=== PATIENT | female | born 1940 | race Caucasian/White ===

== ENCOUNTER → 2016-05-21 | Outpatient (CLI) | payer MEDICARE, BC ==
[2016-05-21 13:46] LABS: INR 1.5 (<1.1)
[2016-05-21 13:48] LABS: Basophils # (A) 0.1 k/uL (0-0.2); Basophils % (A) 1 %; CH 29.9; CHCM 31.9; Eosinophils # (A) 0.1 k/uL (0-0.7); Eosinophils % (A) 2 %; HCT 38.9 % (34.0-46.0); HDW 2.46; HGB 12.1 gm/dL (11.4-16.0); Luc # (Auto) 0.16; Luc % (Auto) 3; Lymphocytes % (A) 19 %; MCH 29.3 pg (25.0-35.0); MCHC 31.1 g/dL (31.0-37.0); MCV 94.1 fL (80.0-100.0); Mean Platelet Volume 8.7; Monocytes # (A) 0.5 k/uL (0-1.0); Monocytes % (A) 9 %; Neutrophils # (A) 3.6 k/uL (1.3-7.7); Neutrophils % (A) 66 %; RBC 4.13 m/uL (3.80-5.40); RDW 13.5 % (11.5-15.5); WBC 5.4 k/uL (3.8-10.6); WBC (Perox) 5.76
== END | disposition home or self-care (01) ==
LOC: LABWHC1 13:05
PROVIDERS: ATTEND Internal Medicine
DX: D68.59 Other primary thrombophilia (principal)
CPT/HCPCS: 36415; 85025; 85610

== ENCOUNTER → 2016-05-26 | Outpatient (CLI) | payer MEDICARE, BC ==
--- NOTE | 2016-05-27 11:31 | ECHOF ---
Referral Reason:M34.9 systemic sclerosis MEASUREMENTS -------- HEIGHT: 162.6 cm WEIGHT: 59.9 kg BP: 156/68 RVIDd: 2.8 cm (< 3.3) IVSd: 1.1 cm (0.6 - 1.1) LVIDd: 2.8 cm (3.9 - 5.3) LVPWd: 1.0 cm (0.6 - 1.1) IVSs: 1.4 cm LVIDs: 2.0 cm LVPWs: 1.6 cm LA Diam: 2.5 cm (2.7 - 3.8) LAESV Index (A-L): 25.29 ml/m Ao Diam: 3.0 cm (2.0 - 3.7) AV Cusp: 2.3 cm (1.5 - 2.6) MV EXCURSION: 13.275 mm (> 18.000) MV EF SLOPE: 37 mm/s (70 - 150) MV E Mor: 0.77 m/s MV DecT: 307 ms MV A Mor: 1.14 m/s MV E/A Ratio: 0.68 RAP: 5.00 mmHg RVSP: 34.03 mmHg FINDINGS -------- Sinus rhythm. This was a technically good study. The left ventricular size is normal. There is borderline concentric left ventricular hypertrophy. Overall left ventricular systolic function is normal with, an EF between 60 - 65 %. The right ventricle is normal in size. Normal LA size by volume 22+/-6 ml/m2. The right atrium is normal in size. Aortic valve is trileaflet and is mildly thickened. The mitral valve leaflets are mildly thickened. Mild mitral annular calcification present. There is trace to mild mitral regurgitation. Mild tricuspid regurgitation present. Right ventricular systolic pressure is normal at < 35 mmHg. Trace/mild (physiologic) pulmonic regurgitation. The aortic root size is normal. There is no pericardial effusion. CONCLUSIONS -------- 1. Sinus rhythm. 2. The mitral valve leaflets are mildly thickened. 3. Mild mitral annular calcification present. 4. There is trace to mild mitral regurgitation. 5. Mild tricuspid regurgitation present. 6. Right ventricular systolic pressure is normal at < 35 mmHg. 7. Trace/mild (physiologic) pulmonic regurgitation. 8. The aortic root size is normal. 9. There is no pericardial effusion. 10. This was a technically good study. 11. The left ventricular size is normal. 12. There is borderline concentric left ventricular hypertrophy. 13. Overall left ventricular systolic function is normal with, an EF between 60 - 65 %. 14. The right ventricle is normal in size. 15. Normal LA size by volume 22+/-6 ml/m2. 16. The right atrium is normal in size. 17. Aortic valve is trileaflet and is mildly thickened. HI RANGER OPERATOR: Nohelia Arenas RDCS
== END | disposition home or self-care (01) ==
LOC: CPPFTMAIN 13:04
PROVIDERS: ATTEND Internal Medicine Rheumatology
DX: M34.9 Systemic sclerosis, unspecified (principal); I34.8 Other nonrheumatic mitral valve disorders; I34.0 Nonrheumatic mitral (valve) insufficiency; I36.1 Nonrheumatic tricuspid (valve) insufficiency; I37.1 Nonrheumatic pulmonary valve insufficiency
CPT/HCPCS: 93306; 94060; 94726; 94729

== ENCOUNTER → 2017-03-17 | Outpatient (CLI) | payer MEDICARE, BC ==
--- NOTE | 2017-03-18 07:07 | MM ---
Reason for exam: screening (asymptomatic). Last mammogram was performed 1 year and 1 month ago. History: Patient is postmenopausal. Benign left mammotome panel of the left breast, January 04, 2012. Took estrogen for 3 years. Physical Findings: A clinical breast exam by your physician is recommended on an annual basis and results should be correlated with mammographic findings. MG 3D Screening Mammo W/Cad Bilateral CC and MLO view(s) were taken. XCCL view(s) were taken of the right breast. Prior study comparison: February 24, 2016, bilateral MG screening mammo w CAD. February 21, 2015, bilateral MG screening mammo w CAD. The breast tissue is heterogeneously dense. This may lower the sensitivity of mammography. Finding: There are typically benign vascular, dystrophic calcifications in both breasts. Previous mammotome biopsy in the left breast. There is no discrete abnormality. ASSESSMENT: Benign, BI-RAD 2 RECOMMENDATION: Routine screening mammogram of both breasts in 1 year.
== END | disposition home or self-care (01) ==
LOC: RADMAMWWP 09:04
PROVIDERS: ATTEND Internal Medicine
DX: Z12.31 Encounter for screening mammogram for malignant neoplasm of breast (principal)
CPT/HCPCS: 77063; G0202

== ENCOUNTER → 2017-06-29 | Outpatient (CLI) | payer MEDICARE, BC | END | disposition home or self-care (01) | LOC: CPPFTMAIN 11:21 | PROVIDERS: ATTEND Internal Medicine Rheumatology | DX: Z53.9 Procedure and treatment not carried out, unspecified reason (principal) ==

== ENCOUNTER → 2018-05-03 | Outpatient (CLI) | payer MEDICARE, BC ==
--- NOTE | 2018-05-07 11:05 | MM ---
Reason for exam: screening (asymptomatic). Last mammogram was performed 1 year and 2 months ago. History: Patient is postmenopausal. Benign left mammotome panel of the left breast, January 04, 2012. Took estrogen for 3 years. MG 3D Screening Mammo W/Cad Bilateral CC and MLO view(s) were taken. Prior study comparison: March 17, 2017, bilateral MG 3d screening mammo w/cad. February 24, 2016, bilateral MG screening mammo w CAD. The breast tissue is heterogeneously dense. This may lower the sensitivity of mammography. Previous left breast mammotome biopsy. No significant changes when compared with prior studies. ASSESSMENT: Benign, BI-RAD 2 RECOMMENDATION: Routine screening mammogram of both breasts in 1 year.
== END ==
LOC: RADMAMWWP 12:55
PROVIDERS: ATTEND Internal Medicine
DX: Z12.31 Encounter for screening mammogram for malignant neoplasm of breast (principal)
CPT/HCPCS: 77063; 77067

== ENCOUNTER → 2018-06-17 | Outpatient (CLI) | payer MEDICARE, BC ==
--- NOTE | 2018-07-01 18:26 | ECHOF ---
Referral Reason:Systemic sclerosis M34.9 MEASUREMENTS -------- HEIGHT: 162.6 cm WEIGHT: 61.2 kg BP: IVSd: 1.0 cm (0.6 - 1.1) LVIDd: 3.2 cm (3.9 - 5.3) LVPWd: 1.3 cm (0.6 - 1.1) IVSs: 1.7 cm LVIDs: 2.0 cm LVPWs: 1.5 cm LAESV Index (A-L): 27.52 ml/m Ao Diam: 2.9 cm (2.0 - 3.7) AV Cusp: 1.9 cm (1.5 - 2.6) LA Diam: 3.0 cm (2.7 - 3.8) MV EXCURSION: 11.540 mm (> 18.000) MV EF SLOPE: 64 mm/s (70 - 150) EPSS: 0.5 cm MV E Mor: 0.97 m/s MV DecT: 267 ms MV A Mor: 1.05 m/s MV E/A Ratio: 0.93 RAP: 5.00 mmHg RVSP: 37.68 mmHg FINDINGS -------- Sinus rhythm. This was a technically good study. The left ventricular size is normal. There is borderline concentric left ventricular hypertrophy. Overall left ventricular systolic function is normal with, an EF between 55 - 60 %. The right ventricle is normal in size. Normal LA size by volume 22+/-6 ml/m2. The right atrial size is normal. There is mild aortic valve sclerosis. The mitral valve leaflets are mildly thickened. Mild mitral annular calcification present. Modera te mitral regurgitation is present. Dgtv-[id number] tricuspid regurgitation present. There is mild pulmonary hypertension. The right ventricular systolic pressure, as measured by Doppler, is 37.68mmHg. There is no pulmonic regurgitation present. The aortic root size is normal. Normal inferior vena cava with normal inspiratory collapse consistent with estimated right atrial pre ssure of 5 mmHg. There is no pericardial effusion. CONCLUSIONS -------- 1. Sinus rhythm. 2. This was a technically good study. 3. The left ventricular size is normal. 4. There is borderline concentric left ventricular hypertrophy. 5. Overall left ventricular systolic function is normal with, an EF between 55 - 60 %. 6. Normal LA size by volume 22+/-6 ml/m2. 7. There is mild aortic valve sclerosis. 8. The mitral valve leaflets are mildly thickened. 9. Mild mitral annular calcification present. 10. Moderate mitral regurgitation is present. 11. Aznz-ba-wiktposu tricuspid regurgitation present. 12. There is mild pulmonary hypertension. 13. There is no pulmonic regurgitation present. 14. The aortic root size is normal. 15. Normal inferior vena cava with normal inspiratory collapse consistent with estimated right atrial pressure of 5 mmHg. 16. There is no pericardial effusion. CREDIT ADVISOR: Maya Mendez RDCS
== END | disposition home or self-care (01) ==
LOC: RADECHMAIN 14:34
PROVIDERS: ATTEND Internal Medicine Rheumatology
DX: I08.3 Combined rheumatic disorders of mitral, aortic and tricuspid valves (principal); I27.20 Pulmonary hypertension, unspecified
CPT/HCPCS: 93306

== ENCOUNTER → 2018-07-12 | Outpatient (CLI) | payer MEDICARE, BC | LOC: CPPFTMAIN 12:02 | PROVIDERS: ATTEND Internal Medicine Rheumatology | DX: I99.8 Other disorder of circulatory system (principal); M34.9 Systemic sclerosis, unspecified | CPT/HCPCS: 94060; 94726; 94729 ==

== ENCOUNTER → 2019-06-20 | Outpatient (CLI) | payer MEDICARE, BC ==
--- NOTE | 2019-06-21 11:22 | MM ---
Reason for exam: screening (asymptomatic). Last mammogram was performed 1 year and 2 months ago. History: Patient is postmenopausal. Benign left mammotome panel of the left breast, January 04, 2012. Took estrogen for 3 years. Physical Findings: A clinical breast exam by your physician is recommended on an annual basis and results should be correlated with mammographic findings. MG 3D Screening Mammo W/Cad Bilateral CC and MLO view(s) were taken. Prior study comparison: May 03, 2018, bilateral MG 3d screening mammo w/cad. March 17, 2017, bilateral MG 3d screening mammo w/cad. The breast tissue is heterogeneously dense. This may lower the sensitivity of mammography. There are benign appearing vascular dystrophic calcifications bilaterally. Previous mammotome biopsy in the left breast at focal asymmetry, stable. There is chronic nodularity in the left breast medially. There is no discrete abnormality. ASSESSMENT: Benign, BI-RAD 2 RECOMMENDATION: Routine screening mammogram of both breasts in 1 year.
== END | disposition home or self-care (01) ==
LOC: RADMAMWWP 14:35
PROVIDERS: ATTEND Internal Medicine
DX: Z12.31 Encounter for screening mammogram for malignant neoplasm of breast (principal)
CPT/HCPCS: 77063; 77067

== ENCOUNTER → 2019-11-21 | Outpatient (CLI) | payer MEDICARE, BC ==
--- NOTE | 2019-11-21 15:00 | ECHOF ---
Referral Reason:M34.9 systemic sclerosis MEASUREMENTS -------- HEIGHT: 162.6 cm WEIGHT: 59.9 kg BP: RVIDd: 3.3 cm (< 3.3) IVSd: 1.5 cm (0.6 - 1.1) LVIDd: 3.4 cm (3.9 - 5.3) LVPWd: 1.7 cm (0.6 - 1.1) IVSs: 1.9 cm LVIDs: 1.8 cm LVPWs: 1.9 cm LAESV Index (A-L): 24.67 ml/m Ao Diam: 3.3 cm (2.0 - 3.7) AV Cusp: 1.8 cm (1.5 - 2.6) MV EXCURSION: 12.148 mm (> 18.000) MV EF SLOPE: 70 mm/s (70 - 150) EPSS: 0.2 cm MV E Mor: 1.10 m/s MV DecT: 234 ms MV A Mor: 1.42 m/s MV E/A Ratio: 0.77 RAP: 5.00 mmHg RVSP: 46.30 mmHg FINDINGS -------- Sinus rhythm. This was a technically adequate study. The left ventricular size is normal. There is moderate concentric left ventricular hypertrophy. O verall left ventricular systolic function is normal with, an EF between 55 - 60 %. The diastolic fi lling pattern is normal for the age of the patient 17.97. The right ventricle is mildly enlarged. Normal LA size by volume 22+/-6 ml/m2. The right atrial size is normal. Interatrial and interventricular septum intact. The aortic valve is trileaflet and appears structurally normal. There is no evidence of aortic regu rgitation. There is no evidence of aortic stenosis. Dcpy-ux-puruifcy mitral regurgitation is present. Rcyf-qa-etjlfrpq tricuspid regurgitation present. There is mild to moderate pulmonary hypertension. The right ventricular systolic pressure, as measured by Doppler, is 46.30mmHg. There is no pulmonic regurgitation present. The aortic root size is normal. IVC Not well visulized. There is no pericardial effusion. CONCLUSIONS -------- 1. The left ventricular size is normal. 2. There is moderate concentric left ventricular hypertrophy. 3. Overall left ventricular systolic function is normal with, an EF between 55 - 60 %. 4. The diastolic filling pattern is normal for the age of the patient 17.97 5. The right ventricle is mildly enlarged. 6. Mhdd-kl-hhvhwgta mitral regurgitation is present. 7. Qxnm-qc-qmpykwbz tricuspid regurgitation present. 8. There is mild to moderate pulmonary hypertension. 9. The right ventricular systolic pressure, as measured by Doppler, is 46.30mmHg. HAND BANDER: Brenda Benjamin RDCS
== END | disposition home or self-care (01) ==
LOC: RADECHMAIN 11:58
PROVIDERS: ATTEND Internal Medicine Rheumatology
DX: I08.1 Rheumatic disorders of both mitral and tricuspid valves (principal); I27.20 Pulmonary hypertension, unspecified
CPT/HCPCS: 93306; 94060; 94726; 94729

== ENCOUNTER 2020-01-22 13:01 | Inpatient (IN) | payer MEDICARE, BC ==
[2020-01-22] MEDS ORDERED: PANTOPRAZOLE 40 MG/10 ML VIAL IVP STA (13:39)
--- NOTE | 2020-01-22 13:50 | ED ---
General Adult HPI - General Chief complaint: Dizziness Stated complaint: Dehydration Time Seen by Provider: 01/22/20 13:27 Source: patient, RN notes reviewed, old records reviewed Mode of arrival: wheelchair Limitations: physical limitation - History of Present Illness Initial comments: 79-year-old female history of factor V Leiden currently on Coumadin presents for evaluation of exertional dyspnea, lightheadedness, and dark stool. She has had dark bowel movements for the past 2 days. She's had increasing fatigue as well as dyspnea. She denies significant cough. She denies chest pain. She has some left shoulder pain in an area where she recently had a shingles outbreak and was treated with Valtrex. She denies fever. Denies URI symptoms. Denies abdominal pain nausea or vomiting. - Related Data Home Medications Medication Instructions Recorded Confirmed Levothyroxine Sodium [Synthroid] 112 mcg PO AC-[id number] 10/05/13 01/22/20 Warfarin Sodium 5 mg PO HS 10/05/13 01/22/20 Amitriptyline HCl [Elavil] 25 mg PO HS 11/22/14 01/22/20 Cholecalciferol [Vitamin D3 (25 1,000 unit PO DAILY 11/22/14 01/22/20 Mcg = 1000 Iu)] diphenhydrAMINE [Benadryl] 25 mg PO DAILY PRN 02/08/15 01/22/20 Biotin 10,000 mcg PO DAILY 01/22/20 01/22/20 Ferrous Sulfate [Iron] 325 mg PO DAILY 01/22/20 01/22/20 Hydroxychloroquine Sulfate 200 mg PO BID 01/22/20 01/22/20 [Plaquenil] Magnesium 250 mg PO DAILY 01/22/20 01/22/20 Meloxicam [Mobic] 7.5 mg PO DAILY 01/22/20 01/22/20 NIFEdipine [NIFEdipine ER 60 mg PO DAILY 01/22/20 01/22/20 (Osmotic)] Allergies Allergy/AdvReac Type Severity Reaction Status Date / Time azithromycin [From Zithromax] Allergy Rash/Hives Verified 01/22/20 14:41 morphine AdvReac Nausea & Verified 01/22/20 14:41 Vomiting Review of Systems ROS Statement: Those systems with pertinent positive or pertinent negative responses have been documented in the HPI. ROS Other: All systems not noted in ROS Statement are negative. Past Medical History Past Medical History: Blood Disorder, Deep Vein Thrombosis (DVT), Eye Disorder, GERD/Reflux, GI Bleed, Hearing Disorder / Deafness, Osteoarthritis (OA), Skin Disorder, Thyroid Disorder Additional Past Medical History / Comment(s): Factor V Leiden, hx. headaches, hx. Hiatal Hernia, gastric ulcer, belching. worsening GERD., BILAT CATARACTS, Lupus History of Any Multi-Drug Resistant Organisms: None Reported Past Surgical History: Appendectomy, Cholecystectomy, Ear Surgery, Hysterectomy, Joint Replacement, Tonsillectomy Additional Past Surgical History / Comment(s): carpal tunnel surgery rotator cuff surgery, left knee replacement, bilat cataract surgery, Ari Fundoplasty, EGD, REVISION OF ARI FUNDOPLASTY Past Anesthesia/Blood Transfusion Reactions: No Reported Reaction Additional Past Anesthesia/Blood Transfusion Reaction / Comment(s): no complications with prior blood transfusions Past Psychological History: No Psychological Hx Reported Smoking Status: Never smoker Past Alcohol Use History: None Reported Past Drug Use History: None Reported - Past Family History Father Family Medical History: CVA/TIA Additional Family Medical History / Comment(s): alcoholism Sister(s) Family Medical History: Diabetes Mellitus Additional Family Medical History / Comment(s): schleroderma Brother(s) Family Medical History: Diabetes Mellitus Mother Family Medical History: No Reported History Additional Family Medical History / Comment(s): heart problems General Exam Limitations: physical limitation General appearance: alert, in no apparent distress Head exam: Present: atraumatic, normocephalic Eye exam: Present: normal appearance, PERRL ENT exam: Present: normal exam Neck exam: Present: normal inspection. Absent: tenderness, meningismus Respiratory exam: Present: normal lung sounds bilaterally. Absent: respiratory distress, wheezes Cardiovascular Exam: Present: regular rate, normal rhythm GI/Abdominal exam: Present: soft. Absent: distended, tenderness, guarding Rectal exam: Present: normal inspection, normal rectal tone, black stool. Absent: hemorrhoids Extremities exam: Present: normal inspection, normal capillary refill. Absent: pedal edema Neurological exam: Present: alert, oriented X3, CN II-XII intact. Absent: motor sensory deficit Psychiatric exam: Present: normal affect, normal mood Skin exam: Present: warm, dry, intact, pallor Course Vital Signs 01/22/20 01/22/20 13:19 14:25 Temperature 98.1 F Pulse Rate 55 L 58 L Respiratory 16 16 Rate Blood Pressure 112/64 131/66 O2 Sat by Pulse 99 98 Oximetry EKG Findings - EKG Comments: EKG Findings:: EKG: Normal sinus rhythm, rate of 90, CA interval 144, QRS duration 84, QTC 379, no ST segment elevation. Medical Decision Making - Medical Decision Making 79-year-old female presenting with lightheadedness, dark stool. Patient has melanotic stool which is heme positive. Hemoglobin is 7.3, with recent for comparison of 12.5, suggestive of a 5 g loss. Patient's vitals are stable. She has an INR of 6.8 currently on Coumadin. I discussed case with gastroenterolo hunter, Dr. Bueno regarding reversal, patient given 10 mg IV piggyback of vitamin K. No fresh frozen plasma at this time. Repeat hemoglobin and INR will be checked in 5 hours. These have been ordered. I discussed case with Dr. Huerta covering for sound physician's, will admit. - Lab Data Result diagrams: 01/22/20 14:03 01/22/20 14:03 Lab Results 01/22/20 01/22/20 01/22/20 Range/Units 14:03 14:03 14:03 WBC 11.6 H (3.8-10.6) k/uL RBC 2.51 L (3.80-5.40) m/uL Hgb 7.3 L (11.4-16.0) gm/dL Hct 22.3 L (34.0-46.0) % MCV 88.9 (80.0-100.0) fL MCH 29.2 (25.0-35.0) pg MCHC 32.9 (31.0-37.0) g/dL RDW 17.0 H (11.5-15.5) % Plt Count 235 (150-450) k/uL Neutrophils % 88 % Lymphocytes % 6 % Monocytes % 4 % Eosinophils % 0 % Basophils % 0 % Neutrophils # 10.2 H (1.3-7.7) k/uL Lymphocytes # 0.7 L (1.0-4.8) k/uL Monocytes # 0.4 (0-1.0) k/uL Eosinophils # 0.0 (0-0.7) k/uL Basophils # 0.0 (0-0.2) k/uL Anisocytosis Slight PT 69.4 H (9.0-12.0) sec INR 6.8 H* (<1.2) APTT 41.5 H (22.0-30.0) sec Sodium 132 L (137-145) mmol/L Potassium 4.5 (3.5-5.1) mmol/L Chloride 100 (98-107) mmol/L Carbon Dioxide 25 (22-30) mmol/L Anion Gap 7 mmol/L BUN 32 H (7-17) mg/dL Creatinine 0.60 (0.52-1.04) mg/dL Est GFR (CKD-EPI)AfAm >90 (>60 ml/min/1.73 sqM) Est GFR (CKD-EPI)NonAf 87 (>60 ml/min/1.73 sqM) Glucose 86 (74-99) mg/dL Plasma Lactic Acid Cronel (0.7-2.0) mmol/L Calcium 7.7 L (8.4-10.2) mg/dL Magnesium 2.3 (1.6-2.3) mg/dL Total Bilirubin 0.2 (0.2-1.3) mg/dL AST 39 H (14-36) U/L ALT 30 (4-34) U/L Alkaline Phosphatase 62 (38-126) U/L Total Protein 5.5 L (6.3-8.2) g/dL Albumin 3.4 L (3.5-5.0) g/dL Stool Occult Blood (Negative) 01/22/20 01/22/20 Range/Units 14:03 14:03 WBC (3.8-10.6) k/uL RBC (3.80-5.40) m/uL Hgb (11.4-16.0) gm/dL Hct (34.0-46.0) % MCV (80.0-100.0) fL MCH (25.0-35.0) pg MCHC (31.0-37.0) g/dL RDW (11.5-15.5) % Plt Count (150-450) k/uL Neutrophils % % Lymphocytes % % Monocytes % % Eosinophils % % Basophils % % Neutrophils # (1.3-7.7) k/uL Lymphocytes # (1.0-4.8) k/uL Monocytes # (0-1.0) k/uL Eosinophils # (0-0.7) k/uL Basophils # (0-0.2) k/uL Anisocytosis PT (9.0-12.0) sec INR (<1.2) APTT (22.0-30.0) sec Sodium (137-145) mmol/L Potassium (3.5-5.1) mmol/L Chloride (98-107) mmol/L Carbon Dioxide (22-30) mmol/L Anion Gap mmol/L BUN (7-17) mg/dL Creatinine (0.52-1.04) mg/dL Est GFR (CKD-EPI)AfAm (>60 ml/min/1.73 sqM) Est GFR (CKD-EPI)NonAf (>60 ml/min/1.73 sqM) Glucose (74-99) mg/dL Plasma Lactic Acid Cornel 2.1 H* (0.7-2.0) mmol/L Calcium (8.4-10.2) mg/dL Magnesium (1.6-2.3) mg/dL Total Bilirubin (0.2-1.3) mg/dL AST (14-36) U/L ALT (4-34) U/L Alkaline Phosphatase (38-126) U/L Total Protein (6.3-8.2) g/dL Albumin (3.5-5.0) g/dL Stool Occult Blood Positive H (Negative) Critical Care Time Critical Care Time: Yes Total Critical Care Time: 35 Disposition Clinical Impression: Symptomatic anemia, GI bleed, Supratherapeutic INR Disposition: ADMITTED IP TO THIS [facility] Condition: Stable Is patient prescribed a controlled substance at d/c from ED?: No Referrals: Dayanna Pierce NPC [Primary Care Provider] - 1-2 days Decision to Admit Reason: Admit from EC Decision Date: 01/22/20 Decision Time: 15:37
[2020-01-22 14:44] LABS: Anisocytosis Slight; Basophils % (A) 0 %; Eosinophils % (A) 0 %; HCT 22.3 % (34.0-46.0); HGB 7.3 gm/dL (11.4-16.0); Lymphocytes # (A) 0.7 k/uL (1.0-4.8); Lymphocytes % (A) 6 %; MCH 29.2 pg (25.0-35.0); MCHC 32.9 g/dL (31.0-37.0); MCV 88.9 fL (80.0-100.0); Mean Platelet Volume 7.5; Monocytes # (A) 0.4 k/uL (0-1.0); Monocytes % (A) 4 %; Neutrophils # (A) 10.2 k/uL (1.3-7.7); Neutrophils % (A) 88 %; Platelet Count 235 k/uL (150-450); RBC 2.51 m/uL (3.80-5.40); WBC 11.6 k/uL (3.8-10.6)
[2020-01-22 14:52] LABS: Partial Thromboplastin Time 41.5 sec (22.0-30.0)
[2020-01-22 15:00] LABS: Prothrombin Time 69.4 sec (9.0-12.0)
[2020-01-22 15:05] LABS: INR 6.8 (<1.2)
[2020-01-22] MEDS ORDERED: PHYTONADIONE 10 MG in SODIUM CHLORIDE 0.9% 50 ML IVPB STA (15:12)
[2020-01-22 15:30] LABS: ALT 30 U/L (4-34); AST 39 U/L (14-36); African American GFR (CKD) >90 (>60 ml/min/1.73 sqM); Albumin 3.4 g/dL (3.5-5.0); Alkaline Phosphatase 62 U/L (38-126); Anion Gap 7 mmol/L; Blood Urea Nitrogen 32 mg/dL (7-17); Calcium 7.7 mg/dL (8.4-10.2); Carbon Dioxide 25 mmol/L (22-30); Chloride 100 mmol/L (98-107); Glucose 86 mg/dL (74-99); Magnesium 2.3 mg/dL (1.6-2.3); Non-African American GFR(CKD) 87 (>60 ml/min/1.73 sqM); Potassium 4.5 mmol/L (3.5-5.1); Sodium 132 mmol/L (137-145); Total Bilirubin 0.2 mg/dL (0.2-1.3); Total Protein 5.5 g/dL (6.3-8.2)
[2020-01-22] MEDS ORDERED: ACETAMINOPHEN TAB 325 MG TAB PO PRN (15:33)
[2020-01-22] MEDS ORDERED: NALOXONE 0.4 MG/ML 1 ML VIAL IV PRN (15:33)
[2020-01-22] MEDS ORDERED: SODIUM CHLORIDE 0.9% 1,000 ML IV SCH (15:45)
--- NOTE | 2020-01-22 16:16 | P.HPIM ---
History of Present Illness H&P Date: 01/22/20 Chief Complaint: Black stool This is a 79-year-old female with past medical history noted below significant for factor V Leiden deficiency chronically on Coumadin the presented to the emergency room with black stool. Patient said that her symptoms started on Wednesday and is being getting progressively worse. She described her stool as black and tarry with no bright red blood in it. She denies any abdominal pain. She said that for the past few days she's been getting progressively weak and tired. She also described dizziness and lightheadedness in addition to shortne ss of breath. She denies any chest pain. She was evaluated in the ER and the hemoglobin was found to be 7.3 down from 12 in October. Hemoccult test was positive. Her INR was 6.8. Patient was given IV vitamin K and will be admitted to the hospital for further management. I saw her in the emergency room. She appears slightly dyspneic O2 sats duration 88-90% on 2 L of oxygen. No chest x- ray was obtained in the ER. Review of Systems Review of system: 14 points review of systems were obtained and were negative except to what were mentioned in the HPI. Past Medical History Past Medical History: Blood Disorder, Deep Vein Thrombosis (DVT), Eye Disorder, GERD/Reflux, GI Bleed, Hearing Disorder / Deafness, Osteoarthritis (OA), Skin Disorder, Thyroid Disorder Additional Past Medical History / Comment(s): Factor V Leiden, hx. headaches, hx. Hiatal Hernia, gastric ulcer, belching. worsening GERD., BILAT CATARACTS, Lupus History of Any Multi-Drug Resistant Organisms: None Reported Past Surgical History: Appendectomy, Cholecystectomy, Ear Surgery, Hysterectomy, Joint Replacement, Tonsillectomy Additional Past Surgical History / Comment(s): carpal tunnel surgery rotator cuff surgery, left knee replacement, bilat cataract surgery, Saulo Fundoplasty, EGD, REVISION OF SAULO FUNDOPLASTY Past Anesthesia/Blood Transfusion Reactions: No Reported Reaction Additional Past Anesthesia/Blood Transfusion Reaction / Comment(s): no complications with prior blood transfusions Past Psychological History: No Psychological Hx Reported Smoking Status: Never smoker Past Alcohol Use History: None Reported Past Drug Use History: None Reported - Past Family History Father Family Medical History: CVA/TIA Additional Family Medical History / Comment(s): alcoholism Sister(s) Family Medical History: Diabetes Mellitus Additional Family Medical History / Comment(s): schleroderma Brother(s) Family Medical History: Diabetes Mellitus Mother Family Medical History: No Reported History Additional Family Medical History / Comment(s): heart problems Medications and Allergies Home Medications Medication Instructions Recorded Confirmed Type Levothyroxine Sodium [Synthroid] 112 mcg PO AC-BRKFST 10/05/13 01/22/20 History Warfarin Sodium 5 mg PO HS 10/05/13 01/22/20 History Amitriptyline HCl [Elavil] 25 mg PO HS 11/22/14 01/22/20 History Cholecalciferol [Vitamin D3 (25 1,000 unit PO DAILY 11/22/14 01/22/20 History Mcg = 1000 Iu)] diphenhydrAMINE [Benadryl] 25 mg PO DAILY PRN 02/08/15 01/22/20 History Biotin 10,000 mcg PO DAILY 01/22/20 01/22/20 History Ferrous Sulfate [Iron] 325 mg PO DAILY 01/22/20 01/22/20 History Hydroxychloroquine Sulfate 200 mg PO BID 01/22/20 01/22/20 History [Plaquenil] Magnesium 250 mg PO DAILY 01/22/20 01/22/20 History Meloxicam [Mobic] 7.5 mg PO DAILY 01/22/20 01/22/20 History NIFEdipine [NIFEdipine ER 60 mg PO DAILY 01/22/20 01/22/20 History (Osmotic)] Allergies Allergy/AdvReac Type Severity Reaction Status Date / Time azithromycin [From Zithromax] Allergy Rash/Hives Verified 01/22/20 14:41 morphine AdvReac Nausea & Verified 01/22/20 14:41 Vomiting Physical Exam Vitals: Vital Signs Temp Pulse Resp BP Pulse Ox 01/22/20 16:00 89 18 114/63 96 01/22/20 15:00 85 18 123/62 96 01/22/20 14:25 58 L 16 131/66 98 01/22/20 13:19 98.1 F 55 L 16 112/64 99 Intake and Output 01/22/20 01/22/20 01/22/20 06:59 14:59 22:59 Other: Weight 58.967 kg General: The patient is awake and alert, in no distress Eye: there is normal conjunctiva bilaterally. Neck: The neck is supple, there is no JVD. Cardiovascular: Normal S1-S2, no S3-S4, no murmurs. Respiratory: Lungs clear to auscultation bilaterally Gastrointestinal: Abdomen is soft, nontender Musculoskeletal: There is no pedal edema. Neurological:. Speech is normal. Skin: Skin is warm and dry Results CBC & Chem 7: 01/22/20 14:03 01/22/20 14:03 Labs: Abnormal Lab Results - Last 24 Hours (Table) 01/22/20 01/22/20 01/22/20 Range/Units 14:03 14:03 14:03 WBC 11.6 H (3.8-10.6) k/uL RBC 2.51 L (3.80-5.40) m/uL Hgb 7.3 L (11.4-16.0) gm/dL Hct 22.3 L (34.0-46.0) % RDW 17.0 H (11.5-15.5) % Neutrophils # 10.2 H (1.3-7.7) k/uL Lymphocytes # 0.7 L (1.0-4.8) k/uL PT 69.4 H (9.0-12.0) sec INR 6.8 H* (<1.2) APTT 41.5 H (22.0-30.0) sec Sodium 132 L (137-145) mmol/L BUN 32 H (7-17) mg/dL Plasma Lactic Acid Cornel (0.7-2.0) mmol/L Calcium 7.7 L (8.4-10.2) mg/dL AST 39 H (14-36) U/L Total Protein 5.5 L (6.3-8.2) g/dL Albumin 3.4 L (3.5-5.0) g/dL Stool Occult Blood (Negative) Crossmatch 01/22/20 01/22/20 01/22/20 Range/Units 14:03 14:03 14:42 WBC (3.8-10.6) k/uL RBC (3.80-5.40) m/uL Hgb (11.4-16.0) gm/dL Hct (34.0-46.0) % RDW (11.5-15.5) % Neutrophils # (1.3-7.7) k/uL Lymphocytes # (1.0-4.8) k/uL PT (9.0-12.0) sec INR (<1.2) APTT (22.0-30.0) sec Sodium (137-145) mmol/L BUN (7-17) mg/dL Plasma Lactic Acid Cornel 2.1 H* (0.7-2.0) mmol/L Calcium (8.4-10.2) mg/dL AST (14-36) U/L Total Protein (6.3-8.2) g/dL Albumin (3.5-5.0) g/dL Stool Occult Blood Positive H (Negative) Crossmatch See Detail Assessment and Plan Assessment: 1. GI bleed, most likely upper. GI consulted for further evaluation. Continue IV Protonix 40 mg twice daily. Clear liquids for now and nothing by mouth after midnight for possible EGD in the morning. 2. Acute blood loss anemia: Patient with symptomatic anemia and a hemoglobin of 7.3. I would order 1 unit of PRBC transfusion. Patient gave consent to the transfusion. I explained to her the indication. 3. Acute hypoxic respiratory failure requiring 2 L of oxygen via nasal cannula to maintain O2 greater than 90%. Most likely secondary to acute anemia. We will obtain chest x-ray for further evaluation. 4. Supratherapeutic INR: Status post IV vitamin K in the emergency room as ordered by ED provider. We will repeat INR in the morning. 5. Factor V Leiden deficiency on lifelong anticoagulation with Coumadin. Hold Coumadin for now 6. Underlying SLE on hydroxychloroquine and nifedipine 7. DVT prophylaxis with SCDs 8. CODE STATUS: Discussed with patient. She would like to be DO NOT RESUSCITATE/DO NOT INTUBATE
--- NOTE | 2020-01-22 16:28 | XR ---
EXAMINATION TYPE: XR chest 2V DATE OF EXAM: 01/22/2020 COMPARISON: 10/05/2013 HISTORY: Shortness of breath TECHNIQUE: Frontal and lateral views of the chest are obtained. FINDINGS: Scattered senescent parenchymal changes noted. Hyperinflation compatible with COPD. No evidence for infiltrate. No evidence for atelectasis. Heart size is stable. Mediastinal structures are stable and grossly unremarkable. No evidence for hilar prominence. Degenerative changes dorsal spine. IMPRESSION: 1. No evidence for acute pulmonary disease. 1940
[2020-01-22] MEDS: SODIUM CHLORIDE 0.9% 1,000 ML IV SCH (17:49)
[2020-01-22] MEDS: AMITRIPTYLINE HCL 25 MG TAB PO SCH (20:07)
[2020-01-22] MEDS: HYDROXYCHLOROQUINE SULFATE 200 MG TAB PO SCH (20:07)
[2020-01-22 22:35] LABS: Anisocytosis Slight; Basophils # (A) 0.1 k/uL (0-0.2); Basophils % (A) 1 %; Eosinophils % (A) 0 %; HCT 23.6 % (34.0-46.0); HGB 7.8 gm/dL (11.4-16.0); Lymphocytes # (A) 1.5 k/uL (1.0-4.8); Lymphocytes % (A) 19 %; MCH 30.1 pg (25.0-35.0); MCHC 33.3 g/dL (31.0-37.0); MCV 90.4 fL (80.0-100.0); Mean Platelet Volume 8.4; Monocytes # (A) 0.7 k/uL (0-1.0); Monocytes % (A) 9 %; Neutrophils # (A) 5.8 k/uL (1.3-7.7); Neutrophils % (A) 69 %; Platelet Count 203 k/uL (150-450); RBC 2.61 m/uL (3.80-5.40); RDW 16.5 % (11.5-15.5); WBC 8.3 k/uL (3.8-10.6)
[2020-01-22 23:01] LABS: INR 1.4 (<1.2); Prothrombin Time 13.6 sec (9.0-12.0)
[2020-01-22] MEDS: PANTOPRAZOLE 40 MG/10 ML VIAL IVP SCH (23:42)
[2020-01-23] MEDS: LEVOTHYROXINE 112 MCG TAB PO SCH (07:03)
[2020-01-23 07:23] LABS: Anisocytosis Slight; Basophils % (A) 1 %; Eosinophils # (A) 0.1 k/uL (0-0.7); Eosinophils % (A) 1 %; HCT 22.3 % (34.0-46.0); HGB 7.4 gm/dL (11.4-16.0); Lymphocytes # (A) 1.4 k/uL (1.0-4.8); Lymphocytes % (A) 16 %; MCH 29.6 pg (25.0-35.0); MCHC 33.3 g/dL (31.0-37.0); MCV 88.9 fL (80.0-100.0); Mean Platelet Volume 7.7; Monocytes # (A) 0.7 k/uL (0-1.0); Monocytes % (A) 8 %; Neutrophils # (A) 6.5 k/uL (1.3-7.7); Neutrophils % (A) 73 %; Platelet Count 208 k/uL (150-450); RDW 17.2 % (11.5-15.5); WBC 8.8 k/uL (3.8-10.6)
[2020-01-23 07:29] LABS: INR 1.1 (<1.2); Prothrombin Time 10.9 sec (9.0-12.0)
[2020-01-23 07:32] LABS: African American GFR (CKD) >90 (>60 ml/min/1.73 sqM); Anion Gap 5 mmol/L; Blood Urea Nitrogen 20 mg/dL (7-17); Calcium 7.4 mg/dL (8.4-10.2); Carbon Dioxide 26 mmol/L (22-30); Chloride 105 mmol/L (98-107); Glucose 86 mg/dL (74-99); Non-African American GFR(CKD) 85 (>60 ml/min/1.73 sqM); Potassium 3.8 mmol/L (3.5-5.1); Sodium 136 mmol/L (137-145)
[2020-01-23] MEDS: FERROUS SULFATE 325 MG TAB PO SCH (09:05)
--- NOTE | 2020-01-23 09:05 | P.PN ---
Subjective Progress Note Date: 01/23/20 Principal diagnosis: GI bleed Patient is feeling well today. Her symptoms of weakness and dizziness improved. She did not have any bowel movement since admission. Hemoglobin stayed around 7.3 despite one unit of blood transfusion yesterday. Objective - Vital Signs Vital signs: Vital Signs Temp 98.5 F 01/22/20 20:00 Pulse 85 01/23/20 04:00 Resp 16 01/23/20 04:00 BP 113/57 01/23/20 04:00 Pulse Ox 96 01/23/20 04:00 Intake & Output 01/22/20 01/23/20 01/23/20 18:59 06:59 18:59 Intake Total 100 310 Balance 100 310 Weight 58.967 kg 60.5 kg Intake: Intake, IV Titration 100 Amount Sodium Chloride 0.9% 1, 100 000 ml @ 50 mls/hr IV . Q20H [facility] Rx#:[id number] Blood Product 0 310 Rc As-1 Unit 0 310 [id number] Other: Voiding Method Toilet # Voids 1 1 - Exam General: The patient is awake and alert, in no distress Eye: there is normal conjunctiva bilaterally. Neck: The neck is supple, there is no JVD. Cardiovascular: Normal S1-S2, no S3-S4, no murmurs. Respiratory: Lungs clear to auscultation bilaterally Gastrointestinal: Abdomen is soft, nontender Musculoskeletal: There is no pedal edema. Neurological:. Speech is normal. Skin: Skin is warm and dry - Labs CBC & Chem 7: 01/23/20 06:46 01/23/20 06:46 Labs: Abnormal Lab Results - Last 24 Hours (Table) 01/22/20 01/22/20 01/22/20 Range/Units 14:03 14:03 14:03 WBC 11.6 H (3.8-10.6) k/uL RBC 2.51 L (3.80-5.40) m/uL Hgb 7.3 L (11.4-16.0) gm/dL Hct 22.3 L (34.0-46.0) % RDW 17.0 H (11.5-15.5) % Neutrophils # 10.2 H (1.3-7.7) k/uL Lymphocytes # 0.7 L (1.0-4.8) k/uL PT 69.4 H (9.0-12.0) sec INR 6.8 H* (<1.2) APTT 41.5 H (22.0-30.0) sec Sodium 132 L (137-145) mmol/L BUN 32 H (7-17) mg/dL Plasma Lactic Acid Cornel (0.7-2.0) mmol/L Calcium 7.7 L (8.4-10.2) mg/dL AST 39 H (14-36) U/L Total Protein 5.5 L (6.3-8.2) g/dL Albumin 3.4 L (3.5-5.0) g/dL Stool Occult Blood (Negative) Crossmatch 01/22/20 01/22/20 01/22/20 Range/Units 14:03 14:03 14:42 WBC (3.8-10.6) k/uL RBC (3.80-5.40) m/uL Hgb (11.4-16.0) gm/dL Hct (34.0-46.0) % RDW (11.5-15.5) % Neutrophils # (1.3-7.7) k/uL Lymphocytes # (1.0-4.8) k/uL PT (9.0-12.0) sec INR (<1.2) APTT (22.0-30.0) sec Sodium (137-145) mmol/L BUN (7-17) mg/dL Plasma Lactic Acid Cornel 2.1 H* (0.7-2.0) mmol/L Calcium (8.4-10.2) mg/dL AST (14-36) U/L Total Protein (6.3-8.2) g/dL Albumin (3.5-5.0) g/dL Stool Occult Blood Positive H (Negative) Crossmatch See Detail 01/22/20 01/22/20 01/23/20 Range/Units 22:17 22:17 06:46 WBC (3.8-10.6) k/uL RBC 2.61 L 2.50 L (3.80-5.40) m/uL Hgb 7.8 L 7.4 L (11.4-16.0) gm/dL Hct 23.6 L 22.3 L (34.0-46.0) % RDW 16.5 H 17.2 H (11.5-15.5) % Neutrophils # (1.3-7.7) k/uL Lymphocytes # (1.0-4.8) k/uL PT 13.6 H (9.0-12.0) sec INR 1.4 H (<1.2) APTT (22.0-30.0) sec Sodium (137-145) mmol/L BUN (7-17) mg/dL Plasma Lactic Acid Cornel (0.7-2.0) mmol/L Calcium (8.4-10.2) mg/dL AST (14-36) U/L Total Protein (6.3-8.2) g/dL Albumin (3.5-5.0) g/dL Stool Occult Blood (Negative) Crossmatch 01/23/20 Range/Units 06:46 WBC (3.8-10.6) k/uL RBC (3.80-5.40) m/uL Hgb (11.4-16.0) gm/dL Hct (34.0-46.0) % RDW (11.5-15.5) % Neutrophils # (1.3-7.7) k/uL Lymphocytes # (1.0-4.8) k/uL PT (9.0-12.0) sec INR (<1.2) APTT (22.0-30.0) sec Sodium 136 L (137-145) mmol/L BUN 20 H (7-17) mg/dL Plasma Lactic Acid Cornel (0.7-2.0) mmol/L Calcium 7.4 L (8.4-10.2) mg/dL AST (14-36) U/L Total Protein (6.3-8.2) g/dL Albumin (3.5-5.0) g/dL Stool Occult Blood (Negative) Crossmatch Assessment and Plan Assessment: This is a 79-year-old female with complex past medical history noted below Presented to the emergency room with generalized weakness and black stool. Patient was evaluated and currently admitted to the hospital for further management of her medical problems noted below. 1. GI bleed, most likely upper. GI consulted for further evaluation and possible EGD. Continue IV Protonix 40 mg twice daily. Patient is currently nothing by mouth 2. Acute blood loss anemia: Patient with symptomatic anemia and a hemoglobin of 7.3. She was transfused 1 unit of PRBC on presentation. No further evidence of ongoing bleed at this time. We will continue to monitor hemoglobin closely. 3. Acute hypoxic respiratory failure requiring 2 L of oxygen via nasal cannula to maintain O2 greater than 90%. Most likely secondary to acute anemia. Chest x-ray with no acute findings 4. Supratherapeutic INR of 6.8 on presentation: Status post IV vitamin K in the emergency room as ordered by ED provider. 5. Factor V Leiden deficiency on lifelong anticoagulation with Coumadin. Hold Coumadin for now 6. Underlying SLE on hydroxychloroquine and nifedipine 7. DVT prophylaxis with SCDs 8. CODE STATUS: Discussed with patient. She would like to be DO NOT RESUSCITATE/DO NOT INTUBATE
[2020-01-23] MEDS: MAGNESIUM OXIDE 400 MG TAB PO SCH (09:13)
[2020-01-23] MEDS: PANTOPRAZOLE 40 MG/10 ML VIAL IVP SCH ×2 (09:13→20:35)
[2020-01-23] MEDS: HYDROXYCHLOROQUINE SULFATE 200 MG TAB PO SCH ×2 (09:13→20:35)
[2020-01-23] MEDS: SODIUM CHLORIDE 0.9% 1,000 ML IV SCH (17:42)
[2020-01-23] MEDS: AMITRIPTYLINE HCL 25 MG TAB PO SCH (20:35)
[2020-01-24] MEDS: LEVOTHYROXINE 112 MCG TAB PO SCH (01:17)
[2020-01-24 06:45] LABS: Anisocytosis Slight; Basophils # (A) 0.1 k/uL (0-0.2); Basophils % (A) 1 %; Eosinophils # (A) 0.3 k/uL (0-0.7); Eosinophils % (A) 4 %; HGB 7.6 gm/dL (11.4-16.0); Lymphocytes # (A) 1.1 k/uL (1.0-4.8); Lymphocytes % (A) 13 %; MCH 29.9 pg (25.0-35.0); MCHC 32.9 g/dL (31.0-37.0); MCV 90.9 fL (80.0-100.0); Mean Platelet Volume 7.4; Monocytes # (A) 0.5 k/uL (0-1.0); Monocytes % (A) 7 %; Neutrophils # (A) 5.9 k/uL (1.3-7.7); Neutrophils % (A) 74 %; Platelet Count 232 k/uL (150-450); RBC 2.53 m/uL (3.80-5.40); RDW 17.6 % (11.5-15.5)
[2020-01-24 07:01] LABS: African American GFR (CKD) >90 (>60 ml/min/1.73 sqM); Anion Gap 4 mmol/L; Blood Urea Nitrogen 12 mg/dL (7-17); Calcium 7.8 mg/dL (8.4-10.2); Carbon Dioxide 27 mmol/L (22-30); Chloride 105 mmol/L (98-107); Glucose 85 mg/dL (74-99); Non-African American GFR(CKD) 86 (>60 ml/min/1.73 sqM); Potassium 3.8 mmol/L (3.5-5.1); Sodium 136 mmol/L (137-145)
[2020-01-24] MEDS: MAGNESIUM OXIDE 400 MG TAB PO SCH (08:32)
[2020-01-24] MEDS: FERROUS SULFATE 325 MG TAB PO SCH (08:32)
[2020-01-24] MEDS: HYDROXYCHLOROQUINE SULFATE 200 MG TAB PO SCH ×2 (08:32→19:53)
[2020-01-24] MEDS: PANTOPRAZOLE 40 MG/10 ML VIAL IVP SCH ×2 (08:32→22:42)
--- NOTE | 2020-01-24 10:24 | P.CONS ---
History of Present Illness - Reason for Consult Consult date: 01/23/20 Melena, anemia Requesting physician: Rojelio Maya - Chief Complaint Melena - History of Present Illness 79-year-old female with a medical history significant for factor V Leiden deficiency on Coumadin therapy, hypothyroidism, GERD and prior Saulo fundopli cation who presented to the hospital due to concerns over black stool. The patient reports multiple episodes of dark black bowel movements prior to presentation. These have been occurring over the past 3 to 4 days. No gross bleeding noted. No change in bowel habits otherwise. She does have a history of colonoscopy last year with large polypectomy and repeat colonoscopy in November 2019. Last EGD with dilation for dysphagia in 2014 at which time antral gastritis was noted. She underwent Saulo fundoplication in 2015. Laboratory evaluation on presentation significant for anemia with a hemoglobin of 7.4 and positive stool testing for occult blood. Patient was found to have an acute elevation in her INR at 6.8. Other laboratory evaluation significant for WBC 8.8, platelet count 208,000, total bilirubin 0.2, alkaline phosphatase 62, AST 39 and ALT 30. Review of Systems REVIEW OF SYSTEMS: CONSTITUTIONAL: Denies any fevers, chills, weight change or fatigue. CARDIOVASCULAR: Denies any chest pain, palpitations high or low blood pressures RESPIRATORY: Denies any shortness of breath, hemoptysis or cough. GENITOURINARY: No dysuria or hematuria. MUSCULOSKELETAL: No weakness reported. SKIN: Denies any new rashes or lesions, jaundice or pallor. PSYCHIATRIC: Denies any depression or anxiety. NEUROLOGY: Denies headache, denies any new focal deficits. EARS/NOSE/THROAT: No recent hearing change, congestion, nasal discharge or sore throat. EYES: No pain in eyes, discharge or change in vision. GASTROINTESTINAL: As per HPI. Past Medical History Past Medical History: Blood Disorder, Deep Vein Thrombosis (DVT), Eye Disorder, GERD/Reflux, GI Bleed, Hearing Disorder / Deafness, Osteoarthritis (OA), Skin Disorder, Thyroid Disorder Additional Past Medical History / Comment(s): Factor V Leiden, hx. headaches, hx. Hiatal Hernia, gastric ulcer, belching. worsening GERD., BILAT CATARACTS, Lupus. fell 3 weeks ago, thinks she tore her left rotator cuff. shingles 01/22/20 History of Any Multi-Drug Resistant Organisms: None Reported Past Surgical History: Appendectomy, Cholecystectomy, Ear Surgery, Hysterectomy, Joint Replacement, Tonsillectomy Additional Past Surgical History / Comment(s): carpal tunnel surgery rotator cuff surgery bilateral and left twice, left knee replacement, bilat cataract surgery, Saulo Fundoplasty, EGD, REVISION OF SAULO FUNDOPLASTY Past Anesthesia/Blood Transfusion Reactions: No Reported Reaction Additional Past Anesthesia/Blood Transfusion Reaction / Comm: no complications with prior blood transfusions Past Psychological History: No Psychological Hx Reported Smoking Status: Never smoker Past Alcohol Use History: None Reported Past Drug Use History: None Reported - Past Family History Father Family Medical History: CVA/TIA Additional Family Medical History / Comment(s): alcoholism Sister(s) Family Medical History: Diabetes Mellitus Additional Family Medical History / Comment(s): schleroderma Brother(s) Family Medical History: Diabetes Mellitus Mother Family Medical History: No Reported History Additional Family Medical History / Comment(s): heart problems Medications and Allergies Home Medications Medication Instructions Recorded Confirmed Type Levothyroxine Sodium [Synthroid] 112 mcg PO AC-BRKFST 10/05/13 01/22/20 History Warfarin Sodium 5 mg PO HS 10/05/13 01/22/20 History Amitriptyline HCl [Elavil] 25 mg PO HS 11/22/14 01/22/20 History Cholecalciferol [Vitamin D3 (25 1,000 unit PO DAILY 11/22/14 01/22/20 History Mcg = 1000 Iu)] diphenhydrAMINE [Benadryl] 25 mg PO DAILY PRN 02/08/15 01/22/20 History Biotin 10,000 mcg PO DAILY 01/22/20 01/22/20 History Ferrous Sulfate [Iron] 325 mg PO DAILY 01/22/20 01/22/20 History Hydroxychloroquine Sulfate 200 mg PO BID 01/22/20 01/22/20 History [Plaquenil] Magnesium 250 mg PO DAILY 01/22/20 01/22/20 History Meloxicam [Mobic] 7.5 mg PO DAILY 01/22/20 01/22/20 History NIFEdipine [NIFEdipine ER 60 mg PO DAILY 01/22/20 01/22/20 History (Osmotic)] Rivaroxaban [Xarelto] 20 mg PO DAILY #30 tab 01/24/20 Rx Allergies Allergy/AdvReac Type Severity Reaction Status Date / Time azithromycin [From Zithromax] Allergy Rash/Hives Verified 01/22/20 14:41 morphine AdvReac Nausea & Verified 01/22/20 14:41 Vomiting Physical Exam Vitals: Vital Signs Temp Pulse Pulse Resp BP BP Pulse Ox 01/23/20 12:00 98.6 F 80 16 114/57 97 01/23/20 08:00 98.7 F 80 16 116/58 97 01/23/20 04:00 85 16 113/57 96 01/23/20 00:00 83 18 124/60 96 01/22/20 21:25 85 18 127/60 97 01/22/20 20:00 98.5 F 86 18 126/57 95 01/22/20 18:25 96.3 F L 89 16 124/58 97 01/22/20 17:55 98.6 F 84 16 117/57 97 01/22/20 17:45 97.2 F L 93 16 131/62 97 01/22/20 16:57 97.2 F L 93 16 131/62 97 01/22/20 16:15 98.1 F 89 18 114/63 96 01/22/20 16:00 89 18 114/63 96 01/22/20 15:00 85 18 123/62 96 Intake and Output 01/22/20 01/23/20 01/23/20 22:59 06:59 14:59 Intake Total 410 240 Balance 410 240 Intake: Intake, IV Titration 100 Amount Sodium Chloride 0.9% 1, 100 000 ml @ 50 mls/hr IV . Q20H [facility] Rx#:[id number] Oral 240 Blood Product 310 Rc As-1 Unit 310 [id number] Other: Voiding Method Toilet Toilet Toilet # Voids 1 1 Weight 58.967 kg 60.5 kg On physical examination, patient appears comfortable in no apparent distress. HEAD: Normocephalic, atraumatic. EYES: No scleral icterus. No conjunctival injection. MOUTH: No lesions, tongue midline. NECK: Trachea midline, no gross abnormalities. CHEST: Decreased air entry in all lung roper. HEART: S1S2 appreciated. ABDOMEN: Soft, thin. Bowel sounds are positive. No organomegaly. No guarding or rigidity. EXTREMITIES: No pedal edema. SKIN: No rashes, no jaundice. NEUROLOGIC: Alert and oriented. No focal deficits. Results CBC & Chem 7: 01/24/20 06:19 01/24/20 06:19 Labs: Abnormal Lab Results - Last 24 Hours (Table) 01/22/20 01/22/20 01/22/20 Range/Units 14:03 14:03 14:03 RBC (3.80-5.40) m/uL Hgb (11.4-16.0) gm/dL Hct (34.0-46.0) % RDW (11.5-15.5) % PT 69.4 H (9.0-12.0) sec INR 6.8 H* (<1.2) APTT 41.5 H (22.0-30.0) sec Sodium 132 L (137-145) mmol/L BUN 32 H (7-17) mg/dL Plasma Lactic Acid Cornel 2.1 H* (0.7-2.0) mmol/L Calcium 7.7 L (8.4-10.2) mg/dL AST 39 H (14-36) U/L Total Protein 5.5 L (6.3-8.2) g/dL Albumin 3.4 L (3.5-5.0) g/dL Crossmatch 01/22/20 01/22/20 01/22/20 Range/Units 14:42 22:17 22:17 RBC 2.61 L (3.80-5.40) m/uL Hgb 7.8 L (11.4-16.0) gm/dL Hct 23.6 L (34.0-46.0) % RDW 16.5 H (11.5-15.5) % PT 13.6 H (9.0-12.0) sec INR 1.4 H (<1.2) APTT (22.0-30.0) sec Sodium (137-145) mmol/L BUN (7-17) mg/dL Plasma Lactic Acid Cornel (0.7-2.0) mmol/L Calcium (8.4-10.2) mg/dL AST (14-36) U/L Total Protein (6.3-8.2) g/dL Albumin (3.5-5.0) g/dL Crossmatch See Detail 01/23/20 01/23/20 Range/Units 06:46 06:46 RBC 2.50 L (3.80-5.40) m/uL Hgb 7.4 L (11.4-16.0) gm/dL Hct 22.3 L (34.0-46.0) % RDW 17.2 H (11.5-15.5) % PT (9.0-12.0) sec INR (<1.2) APTT (22.0-30.0) sec Sodium 136 L (137-145) mmol/L BUN 20 H (7-17) mg/dL Plasma Lactic Acid Cornel (0.7-2.0) mmol/L Calcium 7.4 L (8.4-10.2) mg/dL AST (14-36) U/L Total Protein (6.3-8.2) g/dL Albumin (3.5-5.0) g/dL Crossmatch Chest x-ray: report reviewed (No acute pulmonary disease on chest xray) Assessment and Plan (1) GI bleed Narrative/Plan: 79-year-old female with multiple medical comorbidities including factor V Leiden deficiency chronically on anticoagulation therapy with Coumadin as well as a history of reflux, Asulo fundoplication and prior episodes of gastritis. Patient is on iron therapy at home. She was found to have an acute fall in her hemoglobin to 7.4 on presentation with positive testing for occult blood. Colonoscopy is up-to-date with last performed in November 2019 after a large polyp was removed in 2019. No abdominal pain reported. Patient is on opiate therapy at home. Unclear etiology, differential includes upper GI bleed from AVM, peptic ulcer disease, erosive gastritis or esophagitis or other etiology. Current Visit: Yes Status: Acute Code(s): K92.2 - GASTROINTESTINAL HEMORRHAG E, UNSPECIFIED SNOMED Code(s): 02636305 (2) Supratherapeutic INR Current Visit: Yes Status: Acute Code(s): R79.1 - ABNORMAL COAGULATION PROFILE SNOMED Code(s): 632573376 (3) GERD (gastroesophageal reflux disease) Current Visit: No Status: Acute Code(s): K21.9 - GASTRO-ESOPHAGEAL REFLUX DISEASE WITHOUT ESOPHAGITIS SNOMED Code(s): 641619019 Plan: Supportive care Clear liquid diet Continue to monitor CBC and transfuse as needed Continue to monitor stool output Protonix 40 mg IV twice daily N.p.o. after midnight Plan for evaluation with EGD tomorrow Continue to hold anticoagulation therapy at this time Further recommendations pending findings of EGD Avoid NSAID use Thank you for allowing us to participate in the care of the patient
[2020-01-24] MEDS: SODIUM CHLORIDE 0.9% 1,000 ML IV SCH (11:26)
[2020-01-24] MEDS ORDERED: PROPOFOL 10 MG/ML 20 ML VIAL IV ONE (12:02)
[2020-01-24] MEDS ORDERED: LIDOCAINE 1% INJ 10MG/ML (20 ML MDV) ONE (12:02)
[2020-01-24] MEDS ORDERED: IV FLUID CONTINUATION 1,000 ML IV ONE (12:05)
--- NOTE | 2020-01-24 12:44 | P.PCN ---
Date of Procedure: 01/24/20 Description of Procedure: BRIEF HISTORY: 79-year-old female with a medical history significant for factor V Leiden deficiency on Coumadin therapy, hypothyroidism, GERD and prior Ari fundoplication who presented to the hospital due to concerns over black stool. The patient reports multiple episodes of dark black bowel movements prior to presentation. These have been occurring over the past 3 to 4 days. No gross bleeding noted. No change in bowel habits otherwise. She does have a history of colonoscopy last year with large polypectomy and repeat colonoscopy in November 2019. Last EGD with dilation for dysphagia in 2014 at which time antral gastritis was noted. She underwent Ari fundoplication in 2015. Laboratory evaluation on presentation significant for anemia with a hemoglobin of 7.4 and positive stool testing for occult blood. Patient was found to have an acute elevation in her INR at 6.8. Other laboratory evaluation significant for WBC 8.8, platelet count 208,000, total bilirubin 0.2, alkaline phosphatase 62, AST 39 and ALT 30. PROCEDURE PERFORMED: Esophagogastroduodenoscopy with biopsy and gold probe ablation. PREOPERATIVE DIAGNOSIS: Anemia, melena. ESTIMATED BLOOD LOSS: Minimal. IV sedation per anesthesia. PROCEDURE: After informed consent was obtained, the patient was brought into the endoscopy unit. IV sedation was administered by Anesthesia under continuous monitoring. Initially the Olympus GIF-190 video endoscope was inserted into the mouth. Esophagus intubated without any difficulty. It was gradually advanced into the stomach and duodenum and carefully examined. The bulb and the second part of the duodenum appeared normal, with biopsies taken to rule out celiac sprue. 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 The scope at this time was withdrawn to the stomach, adequately insufflated with air, and upon careful examination, mucosa of the antrum, body, cardia and the fundus appeared normal, except for some mild scattered erythema in the antrum and body suggestive of mild gastritis biopsies taken. The scope was then withdrawn into the esophagus. The GE junction was located at 36 cm from the incisors. The esophagus appeared normal, but was somewhat dilated and tortuous with an area of abnormal coloration 32 cm from the incisors suspected to be secondary to dieting from food which the patient has eaten has some debris noted in the esophagus with the abnormal tissue biopsied. There were no erosions or ulcerations seen and the patient tolerated the procedure well. IMPRESSION: 1. Mild gastritis. 2. 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 3. Biopsies of the duodenum, antrum and body and distal esophagus. RECOMMENDATIONS: The findings of this examination were discussed with the patient. Okay to resume diet. Okay to resume medications. Would hold any anticoagulation for an additional 24 hours. Continue monitor hemoglobin and hematocrit and transfuse a s needed. No plans for further endoscopy at this time.
--- NOTE | 2020-01-24 12:48 | P.PN ---
Subjective Progress Note Date: 01/24/20 Principal diagnosis: GI bleed Patient is doing well today. No bowel movement since admission. Hemoglobin is stable. Objective - Vital Signs Vital signs: Vital Signs Temp 98.3 F 01/24/20 08:39 Pulse 77 01/24/20 08:39 Resp 18 01/24/20 08:39 BP 130/60 01/24/20 08:39 Pulse Ox 98 01/24/20 08:39 Intake & Output 01/23/20 01/24/20 01/24/20 18:59 06:59 18:59 Intake Total 720 240 700 Balance 720 240 700 Weight 60 kg Intake: IV 700 Oral 720 240 Other: Voiding Method Toilet Toilet # Voids 2 1 - Exam General: The patient is awake and alert, in no distress Eye: there is normal conjunctiva bilaterally. Neck: The neck is supple, there is no JVD. Cardiovascular: Normal S1-S2, no S3-S4, no murmurs. Respiratory: Lungs clear to auscultation bilaterally Gastrointestinal: Abdomen is soft, nontender Musculoskeletal: There is no pedal edema. Neurological:. Speech is normal. Skin: Skin is warm and dry - Labs CBC & Chem 7: 01/24/20 06:19 01/24/20 06:19 Labs: Abnormal Lab Results - Last 24 Hours (Table) 01/24/20 01/24/20 Range/Units 06:19 06:19 RBC 2.53 L (3.80-5.40) m/uL Hgb 7.6 L (11.4-16.0) gm/dL Hct 23.0 L (34.0-46.0) % RDW 17.6 H (11.5-15.5) % Sodium 136 L (137-145) mmol/L Calcium 7.8 L (8.4-10.2) mg/dL Assessment and Plan Assessment: This is a 79-year-old female with complex past medical history noted below Presented to the emergency room with generalized weakness and black stool. Patient was evaluated and currently admitted to the hospital for further management of her medical problems noted below. 1. GI bleed, seen and evaluated by GI. 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 Biopsies obtained. Continue Protonix. 2. Acute blood loss anemia: Patient with symptomatic anemia and a hemoglobin of 7.3 on presentation. She was transfused 1 unit of PRBC on presentation. No further evidence of ongoing bleed at this time. We will continue to monitor hemoglobin closely. 3. Acute hypoxic respiratory failure requiring 2 L of oxygen via nasal cannula to maintain O2 greater than 90%. Most likely secondary to acute anemia. Chest x-ray with no acute findings 4. Supratherapeutic INR of 6.8 on presentation: Status post IV vitamin K in the emergency room as ordered by ED provider. 5. Factor V Leiden deficiency on lifelong anticoagulation with Coumadin. Hold Coumadin for now. I would plan to discharge patient on Rivaroxaban 6. Underlying SLE on hydroxychloroquine and nifedipine 7. DVT prophylaxis with SCDs 8. CODE STATUS: Discussed with patient. She would like to be DO NOT RESUSCITATE/DO NOT INTUBATE Continue current regimen. Resume diet as directed by GI. Repeat lab work in the morning. Anticipate discharge home tomorrow.
[2020-01-24] MEDS: AMITRIPTYLINE HCL 25 MG TAB PO SCH (19:53)
[2020-01-25] MEDS: LEVOTHYROXINE 112 MCG TAB PO SCH (06:35)
[2020-01-25 08:00] LABS: Anisocytosis Slight; Basophils # (A) 0.1 k/uL (0-0.2); Basophils % (A) 1 %; Eosinophils # (A) 0.4 k/uL (0-0.7); Eosinophils % (A) 3 %; HCT 24.2 % (34.0-46.0); HGB 7.8 gm/dL (11.4-16.0); Lymphocytes # (A) 1.3 k/uL (1.0-4.8); Lymphocytes % (A) 11 %; MCH 29.8 pg (25.0-35.0); MCHC 32.2 g/dL (31.0-37.0); MCV 92.5 fL (80.0-100.0); Macrocytosis Slight; Mean Platelet Volume 7.8; Monocytes # (A) 0.7 k/uL (0-1.0); Monocytes % (A) 6 %; Neutrophils # (A) 9.4 k/uL (1.3-7.7); Neutrophils % (A) 78 %; Platelet Count 277 k/uL (150-450); RBC 2.62 m/uL (3.80-5.40); RDW 18.1 % (11.5-15.5)
[2020-01-25 08:14] LABS: African American GFR (CKD) >90 (>60 ml/min/1.73 sqM); Anion Gap 6 mmol/L; Blood Urea Nitrogen 17 mg/dL (7-17); Calcium 7.7 mg/dL (8.4-10.2); Carbon Dioxide 25 mmol/L (22-30); Chloride 105 mmol/L (98-107); Glucose 106 mg/dL (74-99); Non-African American GFR(CKD) 83 (>60 ml/min/1.73 sqM); Potassium 3.6 mmol/L (3.5-5.1); Sodium 136 mmol/L (137-145)
[2020-01-25] MEDS: MAGNESIUM OXIDE 400 MG TAB PO SCH (08:37)
[2020-01-25] MEDS: FERROUS SULFATE 325 MG TAB PO SCH (08:37)
[2020-01-25] MEDS: HYDROXYCHLOROQUINE SULFATE 200 MG TAB PO SCH (08:37)
[2020-01-25] MEDS: PANTOPRAZOLE 40 MG/10 ML VIAL IVP SCH (08:37)
--- NOTE | 2020-01-25 09:54 | P.DS ---
Providers Date of admission: 01/22/20 15:33 Expected date of discharge: 01/25/20 Attending physician: Rojelio Maya MD Consults: 01/22/20 15:34 Consult Physician Urgent Consulting Provider: Del Bueno Consult Reason/Comments: GI bleed, supratherapeutic INR Do you want consulting provider notified?: Already Contacted Primary care physician: LESA Carrero Hospital Course: This is a 79-year-old female with complex past medical history noted below Presented to the emergency room with generalized weakness and black stool. Patient was evaluated and currently admitted to the hospital for further management of her medical problems noted below. 1. GI bleed, seen and evaluated by GI. 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 Biopsies obtained. 2. Acute blood loss anemia: Patient with symptomatic anemia and a hemoglobin of 7.3 on presentation. She was transfused 1 unit of PRBC on presentation. No further evidence of ongoing bleed at this time. Hemoglobin stabilized around 7.5 3. Acute hypoxic respiratory failure: Resolved. Most likely secondary to acute anemia. Chest x-ray with no acute findings 4. Supratherapeutic INR of 6.8 on presentation: Status post IV vitamin K in the emergency room as ordered by ED provider. INR back to normal 5. Factor V Leiden deficiency on lifelong anticoagulation with Coumadin. Hold Coumadin for now. Anticoagulation will be resumed upon discharge. Coumadin will be discontinued and patient would be transitioned to Rivaroxaban. She will follow-up with Dr. Sanchez in the office as directed next week 6. Underlying SLE on hydroxychloroquine and nifedipine Patient will be discharged home in a stable condition. For further details about this hospitalization please refer to the electronic chart. Time spent on discharge > 30 minutes including counseling and coordination of Patient Condition at Discharge: Stable Plan - Discharge Summary Discharge Rx Participant: No New Discharge Prescriptions: New Rivaroxaban [Xarelto] 20 mg PO DAILY #30 tab Pantoprazole Sodium [Protonix] 40 mg PO DAILY #30 tablet. Continue Levothyroxine Sodium [Synthroid] 112 mcg PO AC-BRKFST Cholecalciferol [Vitamin D3 (25 Mcg = 1000 Iu)] 1,000 unit PO DAILY Amitriptyline HCl [Elavil] 25 mg PO HS Ferrous Sulfate [Iron] 325 mg PO DAILY Biotin 10,000 mcg PO DAILY NIFEdipine [NIFEdipine ER (Osmotic)] 60 mg PO DAILY Meloxicam [Mobic] 7.5 mg PO DAILY Hydroxychloroquine Sulfate [Plaquenil] 200 mg PO BID Magnesium 250 mg PO DAILY Discontinued Warfarin Sodium 5 mg PO HS diphenhydrAMINE [Benadryl] 25 mg PO DAILY PRN PRN Reason: allergies Discharge Medication List Levothyroxine Sodium [Synthroid] 112 mcg PO AC-BRKFST 10/05/13 [History] Amitriptyline HCl [Elavil] 25 mg PO HS 11/22/14 [History] Cholecalciferol [Vitamin D3 (25 Mcg = 1000 Iu)] 1,000 unit PO DAILY 11/22/14 [History] Biotin 10,000 mcg PO DAILY 01/22/20 [History] Ferrous Sulfate [Iron] 325 mg PO DAILY 01/22/20 [History] Hydroxychloroquine Sulfate [Plaquenil] 200 mg PO BID 01/22/20 [History] Magnesium 250 mg PO DAILY 01/22/20 [History] Meloxicam [Mobic] 7.5 mg PO DAILY 01/22/20 [History] NIFEdipine [NIFEdipine ER (Osmotic)] 60 mg PO DAILY 01/22/20 [History] Rivaroxaban [Xarelto] 20 mg PO DAILY #30 tab 01/24/20 [Rx] Pantoprazole Sodium [Protonix] 40 mg PO DAILY #30 tablet. 01/25/20 [Rx] Follow up Appointment(s)/Referral(s): Dayanna Pierce NPC [Primary Care Provider] - 1-2 days Estella Sanchez MD [STAFF PHYSICIAN] - 1 Week Activity/Diet/Wound Care/Special Instructions: pts xarelto script is filled in [facility] pharmacy for free. Discharge Disposition: HOME SELF-CARE
[2020-01-25 11:01] VITALS: RESP 18
--- NOTE | 2020-01-25 14:13 | P.PN ---
Subjective Progress Note Date: 01/25/20 Principal diagnosis: Melena A pleasant 79-year-old female with a past medical history significant for factor V laden deficiency and Coumadin therapy, hypothyroidism, GERD and prior Niesen fundoplication who presented to the hospital due to concerns or black stool. Yesterday she underwent an EGD which showed mild gastritis and 3 not of bleeding AVMs in the second portion of the duodenum treated with gold probe ablation. She is seen and evaluated at the bedside. She is tolerating her diet. She denies any further episodes of melena. She denies any abdominal pain, nausea, or vomiting. Her hemoglobin was stable this morning at 7.8. Plan is for discharge home on Xarelto. Objective - Vital Signs Vital signs: Vital Signs Temp 98.4 F 01/25/20 08:20 Pulse 84 01/25/20 08:20 Resp 18 01/25/20 08:20 BP 115/68 01/25/20 08:20 Pulse Ox 98 01/25/20 08:20 Intake & Output 01/24/20 01/25/20 01/25/20 18:59 06:59 18:59 Intake Total 1210 240 Output Total 120 0 Balance 1210 120 0 Weight 60.7 kg Intake: IV 700 Intake, IV Titration 400 Amount Sodium Chloride 0.9% 1, 400 000 ml @ 50 mls/hr IV . Q20H [facility] Rx#:[id number] Oral 110 240 Output: Urine 120 0 Stool 0 Other: Voiding Method Toilet # Voids 2 1 0 # Bowel Movements 0 - Exam General appearance: The patient is alert, oriented, in no acute distress. HET: Head is normocephalic and atraumatic. Conjunctiva pink. Sclera and icteric. Neck: Supple without lymphadenopathy. Abdomen: Soft, nontender, nondistended with bowel sounds. No guarding or rigidity. Extremities: Normal skin color and turgor. No pedal edema Neurological: No focal deficits. Alert and oriented 3. - Labs CBC & Chem 7: 01/25/20 07:47 01/25/20 07:47 Labs: Abnormal Lab Results - Last 24 Hours (Table) 01/25/20 01/25/20 Range/Units 07:47 07:47 WBC 12.0 H (3.8-10.6) k/uL RBC 2.62 L (3.80-5.40) m/uL Hgb 7.8 L (11.4-16.0) gm/dL Hct 24.2 L (34.0-46.0) % RDW 18.1 H (11.5-15.5) % Neutrophils # 9.4 H (1.3-7.7) k/uL Sodium 136 L (137-145) mmol/L Glucose 106 H (74-99) mg/dL Calcium 7.7 L (8.4-10.2) mg/dL Assessment and Plan (1) GI bleed Narrative/Plan: 79-year-old female with multiple medical comorbidities including factor V Leiden deficiency chronically on anticoagulation therapy with Coumadin as well as a history of reflux, Ari fundoplication and prior episodes of gastritis. Patient is on iron therapy at home. She was found to have an acute fall in her hemoglobin to 7.4 on presentation with positive testing for occult blood. Colonoscopy is up-to-date with last performed in November 2019 after a large polyp was removed in 2018. No abdominal pain reported. Patient is on opiate therapy at home. Unclear etiology, differential includes upper GI bleed from AVM, peptic ulcer disease, erosive gastritis or esophagitis or other etiology. Current Visit: Yes Status: Acute Code(s): K92.2 - GASTROINTESTINAL HEMOR RHAGE, UNSPECIFIED SNOMED Code(s): 54641554 (2) Supratherapeutic INR Current Visit: Yes Status: Acute Code(s): R79.1 - ABNORMAL COAGULATION PROFILE SNOMED Code(s): 590536618 (3) GERD (gastroesophageal reflux disease) Current Visit: No Status: Acute Code(s): K21.9 - GASTRO-ESOPHAGEAL REFLUX DISEASE WITHOUT ESOPHAGITIS SNOMED Code(s): 301512753 Plan: Supportive care Advance diet as tolerated Continue to monitor CBC and transfuse as needed Continue to monitor stool output Protonix 40 mg IV twice daily Upper endoscopy completed, findings as above Patient may restart anticoagulation, recommend restarting Xarelto tomorrow Avoid NSAID use Patient may be discharged home from a gastroenterology standpoint. I'll need to follow-up in the office in 1-2 weeks for biopsy results. Thank you for allowing us to participate in the care of the patient The impression and plan of care has been dictated as directed. I performed a history and examination of this patient, discussed the same with the dictator. I agree with the dictator's note ,documented as a scribe. Any additional findings or plans will be noted.
[2020-01-25 15:10] VITALS: BP 122/74; PULSE 83; TEMP 97.5
== END 2020-01-25 17:12 | disposition home or self-care (01) | DRG 377 ==
LOC: EC 13:01 → 3SCARD 15:33
PROVIDERS: ADMIT Family Medicine; ATTEND Family Medicine
PROC: 0DB78ZX Excision of Stomach, Pylorus, Via Natural or Artificial Opening Endoscopic, Diagnostic (ICD-10-PCS; principal; 2020-01-24 12:00)
PROC: 0DB58ZX Excision of Esophagus, Via Natural or Artificial Opening Endoscopic, Diagnostic (ICD-10-PCS; principal; 2020-01-24 12:00)
PROC: 0W3P8ZZ Control Bleeding in Gastrointestinal Tract, Via Natural or Artificial Opening Endoscopic (ICD-10-PCS; principal; 2020-01-24 12:00)
PROC: 0DB98ZX Excision of Duodenum, Via Natural or Artificial Opening Endoscopic, Diagnostic (ICD-10-PCS; principal; 2020-01-24 12:00)
PROC: 30233N1 Transfusion of Nonautologous Red Blood Cells into Peripheral Vein, Percutaneous Approach (ICD-10-PCS; 2020-01-24 12:00)
DX: K31.811 Angiodysplasia of stomach and duodenum with bleeding (principal); J96.01 Acute respiratory failure with hypoxia; D68.51 Activated protein C resistance; D62 Acute posthemorrhagic anemia; K29.71 Gastritis, unspecified, with bleeding; E86.0 Dehydration; H91.90 Unspecified hearing loss, unspecified ear; K21.9 Gastro-esophageal reflux disease without esophagitis; E03.9 Hypothyroidism, unspecified; M32.9 Systemic lupus erythematosus, unspecified; Z66 Do not resuscitate; Z96.652 Presence of left artificial knee joint; M19.90 Unspecified osteoarthritis, unspecified site; Z79.1 Long term (current) use of non-steroidal anti-inflammatories (NSAID); Z79.01 Long term (current) use of anticoagulants; Z79.890 Hormone replacement therapy; Z79.899 Other long term (current) drug therapy; Z88.1 Allergy status to other antibiotic agents; Z88.5 Allergy status to narcotic agent; Z86.718 Personal history of other venous thrombosis and embolism; Z90.49 Acquired absence of other specified parts of digestive tract; Z90.89 Acquired absence of other organs; Z98.890 Other specified postprocedural states; Z98.42 Cataract extraction status, left eye; Z98.41 Cataract extraction status, right eye; Z83.3 Family history of diabetes mellitus; Z82.3 Family history of stroke; Z87.11 Personal history of peptic ulcer disease; Z90.710 Acquired absence of both cervix and uterus; Z81.1 Family history of alcohol abuse and dependence; Z83.2 Family history of diseases of the blood and blood-forming organs and certain disorders involving the immune mechanism
CPT/HCPCS: 36415; 43239; 43270; 71046; 80048; 80053; 82272; 83605; 83735; 85025; 85610; 85730; 86850; 86900; 86901; 86920; 88305; 88312; 93005; 96365; 96375; 99291

== ENCOUNTER 2020-04-30 11:13 | Emergency (ER) | payer MEDICARE, BC ==
[2020-04-30 11:23] VITALS: TEMP 98
[2020-04-30 12:22] LABS: Basophils # (A) 0.1 k/uL (0-0.2); Basophils % (A) 0 %; Eosinophils # (A) 0.1 k/uL (0-0.7); Eosinophils % (A) 1 %; HCT 42.1 % (34.0-46.0); HGB 14.1 gm/dL (11.4-16.0); Lymphocytes # (A) 0.6 k/uL (1.0-4.8); Lymphocytes % (A) 5 %; MCH 31.1 pg (25.0-35.0); MCHC 33.6 g/dL (31.0-37.0); MCV 92.7 fL (80.0-100.0); Mean Platelet Volume 8.6; Monocytes # (A) 0.6 k/uL (0-1.0); Monocytes % (A) 5 %; Neutrophils # (A) 11.1 k/uL (1.3-7.7); Neutrophils % (A) 89 %; Platelet Count 138 k/uL (150-450); RBC 4.54 m/uL (3.80-5.40); RDW 13.8 % (11.5-15.5); WBC 12.5 k/uL (3.8-10.6)
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
[2020-04-30 12:32] LABS: Prothrombin Time 10.5 sec (9.0-12.0)
[2020-04-30 12:35] LABS: ALT 30 U/L (4-34); AST 42 U/L (14-36); African American GFR (CKD) >90 (>60 ml/min/1.73 sqM); Albumin 4.3 g/dL (3.5-5.0); Alkaline Phosphatase 78 U/L (38-126); Anion Gap 5 mmol/L; Blood Urea Nitrogen 15 mg/dL (7-17); Calcium 8.7 mg/dL (8.4-10.2); Carbon Dioxide 30 mmol/L (22-30); Chloride 102 mmol/L (98-107); Glucose 98 mg/dL (74-99); Non-African American GFR(CKD) 84 (>60 ml/min/1.73 sqM); Potassium 4.6 mmol/L (3.5-5.1); Sodium 137 mmol/L (137-145); Total Bilirubin 0.4 mg/dL (0.2-1.3); Total Protein 6.7 g/dL (6.3-8.2)
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
[2020-04-30 14:27] VITALS: BP 145/75; PULSE 84; RESP 19
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
[2020-05-01 05:42] LABS: % Iron Saturation 32.53 (12.00-45.00)
== END 2020-04-30 15:22 | disposition home or self-care (01) ==
LOC: EC 11:13
DX: S80.12XA Contusion of left lower leg, initial encounter (principal); M25.512 Pain in left shoulder; I71.2 Thoracic aortic aneurysm, without rupture; M89.9 Disorder of bone, unspecified; E07.9 Disorder of thyroid, unspecified; Z79.01 Long term (current) use of anticoagulants; Z79.890 Hormone replacement therapy; Z88.1 Allergy status to other antibiotic agents; Z88.5 Allergy status to narcotic agent; Z90.49 Acquired absence of other specified parts of digestive tract; Z90.710 Acquired absence of both cervix and uterus; Z86.718 Personal history of other venous thrombosis and embolism; Z96.652 Presence of left artificial knee joint; Z98.42 Cataract extraction status, left eye; Z98.41 Cataract extraction status, right eye; V47.5XXA Car driver injured in collision with fixed or stationary object in traffic accident, initial encounter; Y93.89 Activity, other specified; Y92.410 Unspecified street and highway as the place of occurrence of the external cause
CPT/HCPCS: 36415; 93005; 80053; 83540; 83550; 84484; 85025; 85610; 85730; 73590; 73562; 71046; 72125; 70450; 71275; 99285; Q9967

== ENCOUNTER → 2020-05-06 | Outpatient (CLI) | payer MEDICARE, BC ==
--- NOTE | 2020-05-07 09:06 | XR ---
EXAMINATION TYPE: XR skull complete DATE OF EXAM: 05/06/2020 COMPARISON: NONE HISTORY: Pre-MRI TECHNIQUE: 4 views submitted FINDINGS: osseous structures intact there is hyperostosis of the frontal bone. There is a tiny linear density overlying the region of the left middle ear which is indeterminate. Correlate with the surgi carmen note to determine consistency and any implant prior to MRI. IMPRESSION: 1. Possible metallic density overlying the left middle ear region. Correlate with surgical history pr ior to MRI for consistency of any type of implant.
== END | disposition home or self-care (01) ==
LOC: RADXRMAIN 17:25
PROVIDERS: ATTEND Orthopaedic Surgery Orthopaedic Surgery of the Spine
DX: Z18.10 Retained metal fragments, unspecified (principal)
CPT/HCPCS: 70260

== ENCOUNTER → 2020-05-28 | Outpatient (CLI) | payer OTHER ==
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
== END | disposition home or self-care (01) ==
LOC: RADCTMAIN 13:57
PROVIDERS: ATTEND Orthopaedic Surgery Orthopaedic Surgery of the Spine
DX: M50.23 Other cervical disc displacement, cervicothoracic region (principal); M43.12 Spondylolisthesis, cervical region; M25.78 Osteophyte, vertebrae; M47.812 Spondylosis without myelopathy or radiculopathy, cervical region; M50.321 Other cervical disc degeneration at C4-C5 level; M50.30 Other cervical disc degeneration, unspecified cervical region
CPT/HCPCS: 72125

== ENCOUNTER 2022-07-12 12:27 | Emergency (ER) | payer MEDICARE, OTHER ==
--- NOTE | 2022-07-12 12:41 | ED ---
General Adult HPI - General Stated complaint: Weakness Time Seen by Provider: 07/12/22 12:33 Source: patient, EMS, RN notes reviewed Mode of arrival: EMS Limitations: no limitations - History of Present Illness Initial comments: Patient is a pleasant 81-year-old female presenting to the emergency department with concerns with general weakness and achiness. Onset of symptoms was close to week ago. Patient has been having diarrhea, approximately 2-3 times per day. Patient feels this is finally getting better and feels it may be done. No nausea vomiting. No abdominal pain. Patient states her stool has been a little bit dark. Patient believes she may be having fevers at nighttime. Patient is having pain all over that is intermittent, none at this time. Patient feels generally weak without any area of localized weakness. No confusion or speech problems. - Related Data Home Medications Medication Instructions Recorded Confirmed Levothyroxine Sodium [Synthroid] 112 mcg PO AC-BRKFST 10/05/13 04/30/20 Cholecalciferol [Vitamin D3 (25 1,000 unit PO DAILY 11/22/14 04/30/20 Mcg = 1000 Iu)] Biotin 10,000 mcg PO DAILY 01/22/20 04/30/20 Ferrous Sulfate [Iron] 325 mg PO DAILY 01/22/20 04/30/20 Hydroxychloroquine Sulfate 200 mg PO BID 01/22/20 04/30/20 [Plaquenil] Magnesium 250 mg PO HS 01/22/20 04/30/20 NIFEdipine [NIFEdipine ER 60 mg PO BID 01/22/20 04/30/20 (Osmotic)] Amitriptyline HCl [Elavil] 50 mg PO HS 04/30/20 04/30/20 Rivaroxaban [Xarelto] 20 mg PO HS 04/30/20 04/30/20 Allergies Allergy/AdvReac Type Severity Reaction Status Date / Time azithromycin [From Zithromax] AdvReac Nausea & Verified 04/30/20 13:25 Vomiting morphine AdvReac Nausea & Verified 04/30/20 13:25 Vomiting Review of Systems ROS Statement: Those systems with pertinent positive or pertinent negative responses have been documented in the HPI. ROS Other: All systems not noted in ROS Statement are negative. Constitutional: Reports: as per HPI, fever, chills Eyes: Denies: eye pain ENT: Denies: ear pain Respiratory: Denies: cough, dyspnea Cardiovascular: Denies: chest pain Endocrine: Reports: fatigue Gastrointestinal: Reports: as per HPI, diarrhea. Denies: abdominal pain, nausea, vomiting Genitourinary: Denies: urgency Musculoskeletal: Denies: back pain Skin: Denies: rash Neurological: Reports: as per HPI. Denies: headache, confusion Past Medical History Past Medical History: Blood Disorder, Deep Vein Thrombosis (DVT), Eye Disorder, GERD/Reflux, GI Bleed, Hearing Disorder / Deafness, Osteoarthritis (OA), Skin Disorder, Thyroid Disorder Additional Past Medical History / Comment(s): Factor V Leiden, hx. headaches, hx. Hiatal Hernia, gastric ulcer, belching. worsening GERD., BILAT CATARACTS, Lupus. fell 3 weeks ago, thinks she tore her left rotator cuff. shingles 01/22/20 History of Any Multi-Drug Resistant Organisms: None Reported Past Surgical History: Appendectomy, Cholecystectomy, Ear Surgery, Hysterectomy, Joint Replacement, Tonsillectomy Additional Past Surgical History / Comment(s): carpal tunnel surgery rotator cuff surgery bilateral and left twice, left knee replacement, bilat cataract surgery, Ari Fundoplasty, EGD, REVISION OF ARI FUNDOPLASTY Past Anesthesia/Blood Transfusion Reactions: No Reported Reaction Additional Past Anesthesia/Blood Transfusion Reaction / Comment(s): no complications with prior blood transfusions Past Psychological History: No Psychological Hx Reported Smoking Status: Never smoker Past Alcohol Use History: None Reported Past Drug Use History: None Reported - Past Family History Father Family Medical History: CVA/TIA Additional Family Medical History / Comment(s): alcoholism Sister(s) Family Medical History: Diabetes Mellitus Additional Family Medical History / Comment(s): schleroderma Brother(s) Family Medical History: Diabetes Mellitus Mother Family Medical History: No Reported History Additional Family Medical History / Comment(s): heart problems General Exam Limitations: no limitations General appearance: alert, in no apparent distress Head exam: Present: atraumatic, normocephalic Eye exam: Present: normal appearance, PERRL ENT exam: Present: normal oropharynx Neck exam: Present: normal inspection. Absent: tenderness, meningismus Respiratory exam: Present: normal lung sounds bilaterally Cardiovascular Exam: Present: regular rate, normal rhythm GI/Abdominal exam: Present: soft. Absent: tenderness Extremities exam: Present: normal inspection. Absent: pedal edema, calf tenderness Neurological exam: Present: alert, oriented X3, CN II-XII intact. Absent: motor sensory deficit Expanded Neurological exam: Present: protecting the airway Speech: Present: fluid speech Cranial nerves: EOM's Intact: Normal Motor strength exam: RUE: 5, LUE: 5, RLE: 5, LLE: 5 Eye Response: (4) open spontaneously Motor Response: (6) obeys commands Verbal Response: (5) oriented Psychiatric exam: Present: normal affect, normal mood Skin exam: Present: normal color Course Vital Signs 07/12/22 07/12/22 12:33 14:58 Temperature 97.6 F 97.5 F L Pulse Rate 86 79 Respiratory 18 18 Rate Blood Pressure 126/64 114/61 O2 Sat by Pulse 98 96 Oximetry EKG Findings - EKG Results: EKG: interpreted by AISLINN ([place] left), sinus rhythm, normal QRS, normal ST/T Medical Decision Making - Medical Decision Making Was pt. sent in by a medical professional or institution (Dr. PA, TIRE TESTER, urgent care, hospital, or correction...) When possible be specific @ -No Did you speak to anyone other than the patient for history (EMS, parent, family, police, friend...)? What history was obtained from this source @ -No Did you review nursing and triage notes (agree or disagree)? Why? @ -I reviewed and agree with nursing and triage notes Were old charts reviewed (outside hosp., previous admission, EMS record, old EKG, old radiological studies, urgent care reports/EKG's, correction records)? Report findings @ -No old charts were reviewed Differential Diagnosis (chest pain, altered mental status, abdominal pain women, abdominal pain men, vaginal bleeding, weakness, fever, dyspnea, syncope, headache, dizziness, GI bleed, back pain, seizure, CVA, palpatations, mental health)? @ -not applicable EKG interpreted by me (3pts min.). @ -As above X-rays interpreted by me (1pt min.). @ -Chest x-ray shows no acute process CT interpreted by me (1pt min.). @ -None done U/S interpreted by me (1pt. min.). @ -None done What testing was considered but not performed or refused? (CT, X-rays, U/S, lab s)? Why? @ -None What meds were considered but not given or refused? Why? @ -None Did you discuss the management of the patient with other professionals (professionals i.e. , PA, TIRE TESTER, lab, RT, psych nurse, renal social worker, food safety specialist, teacher, airfield services officer, rn case manager hospice)? Give summary @ -No Was smoking cessation discussed for >3mins.? @ -No Was critical care preformed (if so, how long)? @ -No Were there social determinants of health that impacted care today? How? (Homelessness, low income, unemployed, alcoholism, drug addiction, transportation, low edu. Level, literacy, decrease access to med. care, residential, rehab)? @ -No Was there de-escalation of care discussed even if they declined (Discuss DNR or withdrawal of care, Hospice)? DNR status @ -No What co-morbidities impacted this encounter? (DM, HTN, Smoking, COPD, CAD, Cancer, CVA, ARF, Chemo, Hep., AIDS, mental health diagnosis, sleep apnea, morbid obesity)? @ -None Was patient admitted / discharged? Hospital course, mention meds given and route, prescriptions, significant lab abnormalities, going to OR and other pertinent info. @ -Patient evaluated and feeling much better with IV fluid and requesting discharge home. Patient updated on results and plan. Patient does have mild leukocytosis however abdomen remains soft and nontender and patient symptom-free at this time. Patient is advised to return for abdominal pain or fever or worsening symptoms Undiagnosed new problem with uncertain prognosis? @ -No Drug Therapy requiring intensive monitoring for toxicity (Heparin, Nitro, Insulin, Cardizem)? @ -No Were any procedures done? @ -No Diagnosis/symptom? @ -Diarrhea Acute, or Chronic, or Acute on Chronic? @ -Acute Uncomplicated (without systemic symptoms) or Complicated (systemic symptoms)? @ -default Side effects of treatment? @ -No Exacerbation, Progression, or Severe Exacerbation? @ -No Poses a threat to life or bodily function? How? (Chest pain, [place], PR, pneumonia, PE, COPD, DKA, ARF, appy, cholecystitis, CVA, Diverticulitis, Homicidal, Suicidal, threat to staff... and all critical care pts) @ -No - Lab Data Result diagrams: 07/12/22 12:55 07/12/22 12:55 Lab Results 07/12/22 07/12/22 07/12/22 Range/Units 12:46 12:55 12:55 WBC 16.8 H (3.8-10.6) k/uL RBC 3.83 (3.80-5.40) m/uL Hgb 11.2 L (11.4-16.0) gm/dL Hct 33.5 L (34.0-46.0) % MCV 87.5 (80.0-100.0) fL MCH 29.1 (25.0-35.0) pg MCHC 33.3 (31.0-37.0) g/dL RDW 13.5 (11.5-15.5) % Plt Count 294 (150-450) k/uL MPV 7.9 Neutrophils % 87 % Lymphocytes % 4 % Monocytes % 7 % Eosinophils % 0 % Basophils % 0 % Neutrophils # 14.6 H (1.3-7.7) k/uL Lymphocytes # 0.7 L (1.0-4.8) k/uL Monocytes # 1.3 H (0-1.0) k/uL Eosinophils # 0.1 (0-0.7) k/uL Basophils # 0.1 (0-0.2) k/uL Sodium 131 L (137-145) mmol/L Potassium 4.6 (3.5-5.1) mmol/L Chloride 97 L (98-107) mmol/L Carbon Dioxide 23 (22-30) mmol/L Anion Gap 11 mmol/L BUN 11 (7-17) mg/dL Creatinine 0.53 (0.52-1.04) mg/dL Est GFR (CKD-EPI)AfAm >90 (>60 ml/min/1.73 sqM) Est GFR (CKD-EPI)NonAf 89 (>60 ml/min/1.73 sqM) Glucose 104 H (74-99) mg/dL Plasma Lactic Acid Cornel (0.7-2.0) mmol/L Calcium 8.1 L (8.4-10.2) mg/dL Phosphorus 3.7 (2.5-4.5) mg/dL Magnesium 2.0 (1.6-2.3) mg/dL Total Bilirubin 0.5 (0.2-1.3) mg/dL AST 25 (14-36) U/L ALT 26 (4-34) U/L Alkaline Phosphatase 80 (38-126) U/L Total Protein 6.2 L (6.3-8.2) g/dL Albumin 3.8 (3.5-5.0) g/dL TSH 1.830 (0.465-4.680) mIU/L Free T4 1.70 (0.78-2.19) ng/dL Free T3 pg/mL 2.9 (2.8-5.3) pg/ml Urine Color Urine Appearance (Clear) Urine pH (5.0-8.0) Ur Specific [place] (1.001-1.035) Urine Protein (Negative) Urine Glucose (UA) (Negative) Urine Ketones (Negative) Urine Blood (Negative) Urine Nitrite (Negative) Urine Bilirubin (Negative) Urine Urobilinogen (<2.0) mg/dL Ur Leukocyte Esterase (Negative) Stool Occult Blood Negative (Negative) Influenza Type A (PCR) (Not Detectd) Influenza Type B (PCR) (Not Detectd) RSV (PCR) (Not Detectd) SARS-CoV-2 (PCR) (Not Detectd) 07/12/22 07/12/22 07/12/22 Range/Units 12:55 12:55 14:00 WBC (3.8-10.6) k/uL RBC (3.80-5.40) m/uL Hgb (11.4-16.0) gm/dL Hct (34.0-46.0) % MCV (80.0-100.0) fL MCH (25.0-35.0) pg MCHC (31.0-37.0) g/dL RDW (11.5-15.5) % Plt Count (150-450) k/uL MPV Neutrophils % % Lymphocytes % % Monocytes % % Eosinophils % % Basophils % % Neutrophils # (1.3-7.7) k/uL Lymphocytes # (1.0-4.8) k/uL Monocytes # (0-1.0) k/uL Eosinophils # (0-0.7) k/uL Basophils # (0-0.2) k/uL Sodium (137-145) mmol/L Potassium (3.5-5.1) mmol/L Chloride (98-107) mmol/L Carbon Dioxide (22-30) mmol/L Anion Gap mmol/L BUN (7-17) mg/dL Creatinine (0.52-1.04) mg/dL Est GFR (CKD-EPI)AfAm (>60 ml/min/1.73 sqM) Est GFR (CKD-EPI)NonAf (>60 ml/min/1.73 sqM) Glucose (74-99) mg/dL Plasma Lactic Acid Cornel 1.5 (0.7-2.0) mmol/L Calcium (8.4-10.2) mg/dL Phosphorus (2.5-4.5) mg/dL Magnesium (1.6-2.3) mg/dL Total Bilirubin (0.2-1.3) mg/dL AST (14-36) U/L ALT (4-34) U/L Alkaline Phosphatase (38-126) U/L Total Protein (6.3-8.2) g/dL Albumin (3.5-5.0) g/dL TSH (0.465-4.680) mIU/L Free T4 (0.78-2.19) ng/dL Free T3 pg/mL (2.8-5.3) pg/ml Urine Color Yellow Urine Appearance Clear (Clear) Urine pH 6.5 (5.0-8.0) Ur Specific [place] 1.007 (1.001-1.035) Urine Protein Trace H (Negative) Urine Glucose (UA) Negative (Negative) Urine Ketones Negative (Negative) Urine Blood Negative (Negative) Urine Nitrite Negative (Negative) Urine Bilirubin Negative (Negative) Urine Urobilinogen <2.0 (<2.0) mg/dL Ur Leukocyte Esterase Negative (Negative) Stool Occult Blood (Negative) Influenza Type A (PCR) Not Detected (Not Detectd) Influenza Type B (PCR) Not Detected (Not Detectd) RSV (PCR) Not Detected (Not Detectd) SARS-CoV-2 (PCR) Not Detected (Not Detectd) Disposition Clinical Impression: Diarrhea Disposition: HOME SELF-CARE Condition: Stable Instructions (If sedation given, give patient instructions): Acute Diarrhea (ED), Dehydration (ED) Additional Instructions: Please do follow-up with primary care physician in the next day or 2 for recheck. Return for increased diarrhea, fever, abdominal pain, worsening or changing symptoms or any other concerns. If diarrhea persists you will need further studies/testing for this. Is patient prescribed a controlled substance at d/c from ED?: No Referrals: Richard Roberts MD [Primary Care Provider] - 1-2 days Time of Disposition: 15:50
[2022-07-12] MEDS ORDERED: ACETAMINOPHEN TAB 325 MG TAB PO STA (12:52)
[2022-07-12] MEDS ORDERED: SODIUM CHLORIDE 0.9% 1,000 ML IV STA (12:52)
[2022-07-12 13:28] LABS: Basophils # (A) 0.1 k/uL (0-0.2); Basophils % (A) 0 %; Eosinophils # (A) 0.1 k/uL (0-0.7); Eosinophils % (A) 0 %; HCT 33.5 % (34.0-46.0); HGB 11.2 gm/dL (11.4-16.0); Lymphocytes # (A) 0.7 k/uL (1.0-4.8); Lymphocytes % (A) 4 %; MCH 29.1 pg (25.0-35.0); MCHC 33.3 g/dL (31.0-37.0); MCV 87.5 fL (80.0-100.0); Mean Platelet Volume 7.9; Monocytes # (A) 1.3 k/uL (0-1.0); Monocytes % (A) 7 %; Neutrophils # (A) 14.6 k/uL (1.3-7.7); Neutrophils % (A) 87 %; Platelet Count 294 k/uL (150-450); RBC 3.83 m/uL (3.80-5.40); RDW 13.5 % (11.5-15.5); WBC 16.8 k/uL (3.8-10.6)
[2022-07-12 13:59] LABS: ALT 26 U/L (4-34); AST 25 U/L (14-36); African American GFR (CKD) >90 (>60 ml/min/1.73 sqM); Albumin 3.8 g/dL (3.5-5.0); Alkaline Phosphatase 80 U/L (38-126); Anion Gap 11 mmol/L; Blood Urea Nitrogen 11 mg/dL (7-17); Calcium 8.1 mg/dL (8.4-10.2); Carbon Dioxide 23 mmol/L (22-30); Glucose 104 mg/dL (74-99); Non-African American GFR(CKD) 89 (>60 ml/min/1.73 sqM); Phosphorus 3.7 mg/dL (2.5-4.5); Potassium 4.6 mmol/L (3.5-5.1); Sodium 131 mmol/L (137-145); Total Bilirubin 0.5 mg/dL (0.2-1.3); Total Protein 6.2 g/dL (6.3-8.2)
--- NOTE | 2022-07-12 14:02 | XR ---
EXAMINATION TYPE: XR chest 2V DATE OF EXAM: 07/12/2022 COMPARISON: 04/30/2020 INDICATION: Weakness body ache TECHNIQUE: Frontal and lateral views of the chest are obtained. FINDINGS: The heart size is normal. The pulmonary vasculature is normal. The lungs are clear. IMPRESSION: 1. No acute pulmonary process.
[2022-07-12 14:20] LABS: Chloride 97 mmol/L (98-107)
[2022-07-12 14:45] LABS: Appearance,Urine Clear (Clear); Bilirubin,Urine Negative (Negative); Blood,Urine Negative (Negative); Color,Urine Yellow; Glucose,Urine (UA) Negative (Negative); Ketones,Urine Negative (Negative); Leukocyte Esterase,Urine Negative (Negative); Nitrite,Urine Negative (Negative); PH, Urine 6.5 (5.0-8.0); Protein,Urine Trace (Negative); Specific Gravity,Urine 1.007 (1.001-1.035); Urobilinogen,Urine <2.0 mg/dL (<2.0)
[2022-07-12 16:25] VITALS: BP 116/72; PULSE 80; RESP 20; TEMP 98
== END 2022-07-12 16:24 | disposition home or self-care (01) ==
LOC: EC 12:27
DX: R19.7 Diarrhea, unspecified (principal); K21.9 Gastro-esophageal reflux disease without esophagitis; M19.90 Unspecified osteoarthritis, unspecified site; E07.9 Disorder of thyroid, unspecified; Z79.890 Hormone replacement therapy; Z79.899 Other long term (current) drug therapy; Z88.1 Allergy status to other antibiotic agents; Z88.5 Allergy status to narcotic agent; Z20.822 Contact with and (suspected) exposure to COVID-19
CPT/HCPCS: 36415; 71046; 80053; 81003; 82272; 83605; 83735; 84100; 84439; 84443; 84481; 85025; 87636; 93005; 96360; 99285

== ENCOUNTER → 2022-11-02 | Outpatient (CLI) | payer MEDICARE ==
--- NOTE | 2022-11-02 11:03 | US ---
EXAMINATION TYPE: US venous doppler duplex LE DATE OF EXAM: 11/02/2022 9:58 AM COMPARISON: NONE CLINICAL INDICATION: Female, 81 years old with history of I73.9 PERIPHERAL VASCULAR DISEASE, UNSPECIF IED; Factor 5, history of DVT, patient on blood thinners SIDE PERFORMED: Bilateral TECHNIQUE: The lower extremity deep venous system is examined utilizing real time linear array sonog angelica with graded compression, doppler sonography and color-flow sonography. VESSELS IMAGED: Common Femoral Vein Deep Femoral Vein Greater Saphenous Vein * Femoral Vein Popliteal Vein Small Saphenous Vein * Proximal Calf Veins (* superficial vessels) Right Leg: Appears negative for DVT Left Leg: Echogenic foci within EIV, GSV, CFV and deep fem vein with partial compression - ?chronic changes Grayscale, color doppler, spectral doppler imaging performed of the deep veins of the lower extremiti es. There is normal flow, compressibility, vascular waveforms. IMPRESSION: 1. Chronic appearing DVT in the external iliac vein, greater saphenous and common femoral vein and d eep femoral vein. 2. No evidence for deep vein to most of the right lower extremity.
[2022-11-02 16:00] LABS: Basophils # (A) 0.08 X 10*3/uL (0.00-0.10); Basophils % (A) 1.1 %; Eosinophils # (A) 0.16 X 10*3/uL (0.04-0.35); Eosinophils % (A) 2.3 %; HCT 40.1 % (37.2-46.3); HGB 12.6 d/dL (12.0-15.0); Lymphocytes # (A) 0.71 X 10*3/uL (0.90-5.00); Lymphocytes % (A) 10.1 %; MCHC 31.4 d/dL (32.0-37.0); MCV 92.4 FL (80.0-97.0); Monocytes # (A) 0.77 X 10*3/uL (0.20-1.00); NRBC Per 100 WBC 0 X 10*3/uL (0.00-0.01); Neutrophils # (A) 5.24 X 10*3/uL (1.80-7.70); Neutrophils % (A) 74.9 %; Platelet Count 151 X 10*3/uL (140-440); RBC 4.34 X 10*6/uL (4.10-5.20); RDW 14.5 % (11.5-14.5)
[2022-11-02 16:13] LABS: ALT 28 U/L (8-44); AST 22 U/L (13-35); Albumin 4.4 d/dL (3.8-4.9); Albumin/Globulin Ratio 2.32 Ratio (1.60-3.17); Alkaline Phosphatase 89 U/L (41-126); BUN/Creat Ratio 19.14 Ratio (12.00-20.00); Blood Urea Nitrogen 13.4 mg/dL (9.0-27.0); Calcium 8.7 mg/dL (8.7-10.3); Carbon Dioxide 27.8 mmol/L (21.6-31.8); Chloride 99 mmol/L (96-109); Globulin 1.9 d/dL (1.6-3.3); Glucose 75 mg/dL (70-110); Potassium 5.4 mmol/L (3.5-5.5); Sodium 138 mmol/L (135-145); Total Bilirubin 0.2 mg/dL (0.3-1.2); Total Protein 6.3 d/dL (6.2-8.2)
[2022-11-02 16:55] LABS: Erythrocyte Sedimentation Rate 6 mm/Hr (0-30)
[2022-11-02 21:03] LABS: Gliadin AB IgA, Deaminated Negative (Negative); Gliadin AB IgA, Unit <0.5 U/mL; Gliadin AB IgG, Deaminated Negative (Negative); Gliadin AB IgG, Unit <0.4 U/mL
== END | disposition home or self-care (01) ==
LOC: RADUSWWP 09:30
PROVIDERS: ATTEND Pediatrics
DX: I82.512 Chronic embolism and thrombosis of left femoral vein (principal); I82.812 Embolism and thrombosis of superficial veins of left lower extremity; I82.522 Chronic embolism and thrombosis of left iliac vein; I73.9 Peripheral vascular disease, unspecified
CPT/HCPCS: 80053; 83516; 85025; 85652; 86140; 93970

== ENCOUNTER 2023-11-05 11:51 | Emergency (ER) | payer MEDICARE ==
[2023-11-05 12:37] LABS: Basophils # (A) 0.1 k/uL (0-0.2); Basophils % (A) 1 %; Eosinophils # (A) 0.2 k/uL (0-0.7); Eosinophils % (A) 3 %; Lymphocytes # (A) 0.7 k/uL (1.0-4.8); Lymphocytes % (A) 9 %; MCH 29.7 pg (25.0-35.0); MCHC 33.3 g/dL (31.0-37.0); Mean Platelet Volume 7.9; Monocytes # (A) 0.5 k/uL (0-1.0); Monocytes % (A) 7 %; Neutrophils # (A) 5.8 k/uL (1.3-7.7); Neutrophils % (A) 79 %; Platelet Count 251 k/uL (150-450); RBC 3.71 m/uL (3.80-5.40); RDW 14.2 % (11.5-15.5); WBC 7.3 k/uL (3.8-10.6)
[2023-11-05 12:46] LABS: ALT 23 U/L (4-34); AST 32 U/L (14-36); African American GFR (CKD) >90 (>60 ml/min/1.73 sqM); Albumin 3.9 g/dL (3.5-5.0); Alkaline Phosphatase 76 U/L (38-126); Anion Gap 6 mmol/L; Blood Urea Nitrogen 16 mg/dL (7-17); Calcium 8.4 mg/dL (8.4-10.2); Carbon Dioxide 24 mmol/L (22-30); Chloride 99 mmol/L (98-107); Glucose 95 mg/dL (74-99); Non-African American GFR(CKD) >90 (>60 ml/min/1.73 sqM); Potassium 4.7 mmol/L (3.5-5.1); Sodium 129 mmol/L (137-145); Total Bilirubin 0.4 mg/dL (0.2-1.3); Total Protein 6.2 g/dL (6.3-8.2)
--- NOTE | 2023-11-05 12:46 | ED ---
Fall HPI - General Chief Complaint: Fall Stated Complaint: fall Time Seen by Provider: 11/05/23 11:55 Source: EMS Mode of arrival: EMS - History of Present Illness Initial Comments: 82-year-old female past medical history factor V on Eliquis who presents emergency department after she was found down in the parking lot of [employer]. Bystanders saw the patient down on the ground with obvious head injury. Patient had bleeding to the left forehead where there is no identifiable puncture wound. EMS was unsure of the patient was unable to cry patient however she does have a bracelet on indicating that she is. She does have repetitive questioning. Patient did not know where she was however later is able to recall that she was out shopping. Patient was alone. Admits to a headache. Patient is on Xarelto for her factor V. Patient in a c-collar. No other reported injury. Unsure if the patient fell or passed out - Related Data Home Medications Medication Instructions Recorded Confirmed Levothyroxine Sodium [Synthroid] 112 mcg PO AC-BRKFST 10/05/13 04/30/20 Cholecalciferol [Vitamin D3 (25 1,000 unit PO DAILY 11/22/14 04/30/20 Mcg = 1000 Iu)] Biotin 10,000 mcg PO DAILY 01/22/20 04/30/20 Ferrous Sulfate [Iron] 325 mg PO DAILY 01/22/20 04/30/20 Hydroxychloroquine Sulfate 200 mg PO BID 01/22/20 04/30/20 [Plaquenil] Magnesium 250 mg PO HS 01/22/20 04/30/20 NIFEdipine [NIFEdipine ER 60 mg PO BID 01/22/20 04/30/20 (Osmotic)] Amitriptyline HCl [Elavil] 50 mg PO HS 04/30/20 04/30/20 Rivaroxaban [Xarelto] 20 mg PO HS 04/30/20 04/30/20 Allergies Allergy/AdvReac Type Severity Reaction Status Date / Time azithromycin [From Zithromax] AdvReac Nausea & Verified 11/05/23 11:56 Vomiting morphine AdvReac Nausea & Verified 11/05/23 11:56 Vomiting Review of Systems ROS Statement: Those systems with pertinent positive or pertinent negative responses have been documented in the HPI. ROS Other: All systems not noted in ROS Statement are negative. Past Medical History Past Medical History: Blood Disorder, Deep Vein Thrombosis (DVT), Eye Disorder, GERD/Reflux, GI Bleed, Hearing Disorder / Deafness, Osteoarthritis (OA), Skin Disorder, Thyroid Disorder Additional Past Medical History / Comment(s): Factor V Leiden, hx. headaches, hx. Hiatal Hernia, gastric ulcer, belching. worsening GERD., BILAT CATARACTS, Lupus. fell 3 weeks ago, thinks she tore her left rotator cuff. shingles 01/22/20 History of Any Multi-Drug Resistant Organisms: None Reported Past Surgical History: Appendectomy, Cholecystectomy, Ear Surgery, Hysterectomy, Joint Replacement, Tonsillectomy Additional Past Surgical History / Comment(s): carpal tunnel surgery rotator cuff surgery bilateral and left twice, left knee replacement, bilat cataract surgery, Ari Fundoplasty, EGD, REVISION OF ARI FUNDOPLASTY Past Anesthesia/Blood Transfusion Reactions: No Reported Reaction Additional Past Anesthesia/Blood Transfusion Reaction / Comment(s): no complications with prior blood transfusions Past Psychological History: No Psychological Hx Reported Smoking Status: Never smoker Past Alcohol Use History: None Reported Past Drug Use History: None Reported - Past Family History Father Family Medical History: CVA/TIA Additional Family Medical History / Comment(s): alcoholism Sister(s) Family Medical History: Diabetes Mellitus Additional Family Medical History / Comment(s): schleroderma Brother(s) Family Medical History: Diabetes Mellitus Mother Family Medical History: No Reported History Additional Family Medical History / Comment(s): heart problems General Exam Limitations: altered mental status General appearance: alert Head exam: Present: other (scalp laceration to the left forehead measuring 1 cm. Pulsatile bleeding) Eye exam: Present: normal appearance, PERRL, EOMI. Absent: scleral icterus, conjunctival injection, periorbital swelling Neck exam: Present: other (c-collar) Respiratory exam: Present: normal lung sounds bilaterally. Absent: respiratory distress, wheezes, rales, rhonchi, stridor Cardiovascular Exam: Present: regular rate, normal rhythm, normal heart sounds. Absent: systolic murmur, diastolic murmur, rubs, gallop, clicks Neurological exam: Present: altered, other (repetitive questioning. Oriented to self) Psychiatric exam: Present: normal affect, normal mood Course Vital Signs 11/05/23 11/05/23 11/05/23 11:53 12:15 12:45 Temperature 97.7 F Pulse Rate 94 87 82 Respiratory 18 16 18 Rate Blood Pressure 155/81 157/80 156/82 O2 Sat by Pulse 97 99 96 Oximetry 11/05/23 13:34 Temperature 98.3 F Pulse Rate 83 Respiratory 16 Rate Blood Pressure 160/88 O2 Sat by Pulse 99 Oximetry Procedures - Laceration Laceration #1 Consent Obtained: verbal consent Indication: laceration Site: face Size (cm): 1 Description: linear Depth: simple, single layer, arterial injury Size of Sutures: 6-0 Number of Sutures: 3 Technique: simple, interrupted Patient Tolerated Procedure: well, no complications Medical Decision Making - Medical Decision Making Was pt. sent in by a medical professional or institution (, PA, PRODUCTION COUNTER, urgent care, hospital, or fdc...) When possible be specific @ -no Did you speak to anyone other than the patient for history (EMS, parent, family, police, friend...)? What history was obtained from this source @ -spoke with EMS for history Did you review nursing and triage notes (agree or disagree)? Why? @ -I reviewed and agree with nursing and triage notes Were old charts reviewed (outside hosp., previous admission, EMS record, old EKG, old radiological studies, urgent care reports/EKG's, fdc records)? Report findings @ -I reviewed previous outside medication records which indicate the patient is on Xarelto Differential Diagnosis (chest pain, altered mental status, abdominal pain women, abdominal pain men, vaginal bleeding, weakness, fever, dyspnea, syncope, headache, dizziness, GI bleed, back pain, seizure, CVA, palpatations, mental health, musculoskeletal)? @ -Differential Altered Mental Status: Hypoglycemia, DKA, hypercapnia, ETOH, overdose, CO poisoning, trauma, myxedema coma, HTN encephalopathy, infection, encephalitis, psychosis, intercranial hemorrhage, hepatic encephalopathy, meningitis, CVA, this is not meant to be an all-inclusive list EKG interpreted by me (3pts min.). @ -yes and demonstrates sinus rhythm with a rate of 86. ND interval 152. QRS 92. QTC of 443. No acute ST segment elevations or depressions X-rays interpreted by me (1pt min.). @ -yes and demonstrates no acute process CT interpreted by me (1pt min.). @ -yes and demonstrates bilateral frontal lobe cortical contusions. There is m ild hemorrhage within the left lateral ventricle near the posterior horn U/S interpreted by me (1pt. min.). @ -None done What testing was considered but not performed or refused? (CT, X-rays, U/S, labs)? Why? @ -None What meds were considered but not given or refused? Why? @ -None Did you discuss the management of the patient with other professionals (professionals i.e. , PA, PRODUCTION COUNTER, lab, RT, psych nurse, social media manager, oncology research rn, teacher, staff submarine warfare officer, counseling case manager)? Give summary @ -spoke with the on-call radiologist. Also spoke with [facility] transfer team Was smoking cessation discussed for >3mins.? @ -No Was critical care preformed (if so, how long)? @ -yes, 40 minutes Were there social determinants of health that impacted care today? How? (Homelessness, low income, unemployed, alcoholism, drug addiction, transportation, low edu. Level, literacy, decrease access to med. care, [facility], rehab)? @ -No Was there de-escalation of care discussed even if they declined (Discuss DNR or withdrawal of care, Hospice)? DNR status @ -No What co-morbidities impacted this encounter? (DM, HTN, Smoking, COPD, CAD, Cancer, CVA, ARF, Chemo, Hep., AIDS, mental health diagnosis, sleep apnea, morbid obesity)? @ -factor V Was patient admitted / discharged? Hospital course, mention meds given and route, prescriptions, significant lab abnormalities, going to OR and other pertinent info. @ -upon arrival patient seen and evaluated in trauma 2. Thorough history and physical exam was performed. Patient does have signs of obvious head injury. Bleeding is not controlled with compression and therefore 3 nylon, 6-O sutures are placed. Chest and pelvic x-ray are performed. Patient does go for CT which demonstrates bilateral frontal lobe contusions. Son does present to bedside and is agreeable to transfer the patient. Called [facility] and Dr. Younger did accept patient. He was in agreement for the patient to receive balfaxar for reversal. Also agreeable to accept the patient is transferred. Patient will be transferred priority 1. Patient transferred in stable condition Undiagnosed new problem with uncertain prognosis? @ -No Drug Therapy requiring intensive monitoring for toxicity (Heparin, Nitro, Insulin, Cardizem)? @ -No Were any procedures done? @ -scalp laceration repair Diagnosis/symptom? @ -acute blunt head injury, left scalp laceration, bilateral frontal lobe contusions Acute, or Chronic, or Acute on Chronic? @ -acute Uncomplicated (without systemic symptoms) or Complicated (systemic symptoms)? @ -complicated Side effects of treatment? @ -no Exacerbation, Progression, or Severe Exacerbation? @ -no Poses a threat to life or bodily function? How? (Chest pain, [place], [place], pneumonia, PE, COPD, DKA, ARF, appy, cholecystitis, CVA, Diverticulitis, Homicidal, Suicidal, threat to staff... and all critical care pts) @ -yes this patient has life-threatening brain bleed - Lab Data Result diagrams: 11/05/23 12:19 11/05/23 12:19 Lab Results 11/05/23 11/05/23 11/05/23 Range/Units 12:19 12:19 12:19 WBC 7.3 (3.8-10.6) k/uL RBC 3.71 L (3.80-5.40) m/uL Hgb 11.0 L (11.4-16.0) gm/dL Hct 33.0 L (34.0-46.0) % MCV 89.0 (80.0-100.0) fL MCH 29.7 (25.0-35.0) pg MCHC 33.3 (31.0-37.0) g/dL RDW 14.2 (11.5-15.5) % Plt Count 251 (150-450) k/uL MPV 7.9 Neutrophils % 79 % Lymphocytes % 9 % Monocytes % 7 % Eosinophils % 3 % Basophils % 1 % Neutrophils # 5.8 (1.3-7.7) k/uL Lymphocytes # 0.7 L (1.0-4.8) k/uL Monocytes # 0.5 (0-1.0) k/uL Eosinophils # 0.2 (0-0.7) k/uL Basophils # 0.1 (0-0.2) k/uL PT 10.9 (10.0-12.5) sec INR 1.0 (<1.2) APTT 26.6 (22.0-30.0) sec Sodium 129 L (137-145) mmol/L Potassium 4.7 (3.5-5.1) mmol/L Chloride 99 (98-107) mmol/L Carbon Dioxide 24 (22-30) mmol/L Anion Gap 6 mmol/L BUN 16 (7-17) mg/dL Creatinine 0.46 L (0.52-1.04) mg/dL Est GFR (CKD-EPI)AfAm >90 (>60 ml/min/1.73 sqM) Est GFR (CKD-EPI)NonAf >90 (>60 ml/min/1.73 sqM) Glucose 95 (74-99) mg/dL Calcium 8.4 (8.4-10.2) mg/dL Total Bilirubin 0.4 (0.2-1.3) mg/dL AST 32 (14-36) U/L ALT 23 (4-34) U/L Alkaline Phosphatase 76 (38-126) U/L Troponin I (0.000-0.034) ng/mL Total Protein 6.2 L (6.3-8.2) g/dL Albumin 3.9 (3.5-5.0) g/dL Serum Alcohol <10 mg/dL Blood Type Blood Type Recheck Bld Type Recheck Status Antibody Screen Spec Expiration Date 11/05/23 11/05/23 Range/Units 12:19 12:19 WBC (3.8-10.6) k/uL RBC (3.80-5.40) m/uL Hgb (11.4-16.0) gm/dL Hct (34.0-46.0) % MCV (80.0-100.0) fL MCH (25.0-35.0) pg MCHC (31.0-37.0) g/dL RDW (11.5-15.5) % Plt Count (150-450) k/uL MPV Neutrophils % % Lymphocytes % % Monocytes % % Eosinophils % % Basophils % % Neutrophils # (1.3-7.7) k/uL Lymphocytes # (1.0-4.8) k/uL Monocytes # (0-1.0) k/uL Eosinophils # (0-0.7) k/uL Basophils # (0-0.2) k/uL PT (10.0-12.5) sec INR (<1.2) APTT (22.0-30.0) sec Sodium (137-145) mmol/L Potassium (3.5-5.1) mmol/L Chloride (98-107) mmol/L Carbon Dioxide (22-30) mmol/L Anion Gap mmol/L BUN (7-17) mg/dL Creatinine (0.52-1.04) mg/dL Est GFR (CKD-EPI)AfAm (>60 ml/min/1.73 sqM) Est GFR (CKD-EPI)NonAf (>60 ml/min/1.73 sqM) Glucose (74-99) mg/dL Calcium (8.4-10.2) mg/dL Total Bilirubin (0.2-1.3) mg/dL AST (14-36) U/L ALT (4-34) U/L Alkaline Phosphatase (38-126) U/L Troponin I <0.012 (0.000-0.034) ng/mL Total Protein (6.3-8.2) g/dL Albumin (3.5-5.0) g/dL Serum Alcohol mg/dL Blood Type B Positive Blood Type Recheck B Pos Bld Type Recheck Status No Antibody Screen NEGATIVE Spec Expiration Date 11/08/20232318 Disposition Clinical Impression: Intracranial hemorrhage, Head injury, Scalp laceration, Anticoagulation adequate Disposition: OTHER INSTITUTION NOT DEFINED Condition: Serious Is patient prescribed a controlled substance at d/c from ED?: No Referrals: Richard Roberts MD [Primary Care Provider] - 1-2 days Time of Disposition: 13:11 - Out of Hospital Transfer - Req. Specs Out of Hospital Transfer - Requested Specifics: Other Emergency Center ([facility])
[2023-11-05 12:47] LABS: Alcohol <10 mg/dL
--- NOTE | 2023-11-05 12:51 | CT ---
EXAMINATION TYPE: CT brain cspine wo con CT DLP: 1405.6 mGycm, Automated exposure control for dose reduction was used. DATE OF EXAM: 11/05/2023 12:28 PM COMPARISON: CT cervical spine 05/28/2020, CT Brain and cspine 04/30/2020. CLINICAL INDICATION:Female, 82 years old with history of trauma; Fall, head trauma TECHNIQUE: Brain: Multiple axial CT images of the brain were obtained without IV contrast. Cspine: Axial CT images from the skull base to the inferior aspect of T2 we obtained without intraven ous contrast. Coronal and sagittal reformatted images were also reviewed. FINDINGS: Brain: Extra-axial spaces: The hyperdense focus within the posterior horn of the left lateral ventricle (ser ies 2031, image 30). Ventricular system: Within normal limits Cerebral parenchyma: Age-appropriate cerebral volume loss. Bilateral frontal lobe hyperdense contusio ns identified (series 2031, image 37 and 38)a. The abel-white junction is well differentiated. Scatte red hypoattenuating areas are seen within the periventricular white matter. Nonspecific right basal ganglia calcifications. Cerebellum: Unremarkable. Mass effect: No evidence of midline shift. Intracranial vasculature: Atherosclerotic calcifications of the intracranial vessels. Soft tissues: Minimal left lateral forehead soft tissue edema. Calvarium/osseous structures: No depressed skull fracture. Benign hyperostosis frontalis noted. Paranasal sinuses and mastoid air cells: Clear. Visualized orbits: Bilateral aphakia Cervical spine: Fracture: No acute fracture. Remote fracture of the C7 spinous process. Remote anterior wedge ekaterina ofe deformity of the T1 vertebral body. Osseous structures: Multilevel degenerative disc disease changes with endplate spurring and disc oste ophyte complex's. Diffuse bone demineralization. Vertebral alignment: Similar grade 1 anterolisthesis of C3 on C4 and C5 on C6 and C7 on T1. Spinal canal/Neural Foramina: Disc osteophyte complexes at C6-C7 and T1-T2 with at least mild spinal canal stenosis. Facet joint uncovertebral joint arthropathy scattered throughout the cervical spine w ith varying degrees of neural foraminal stenosis. Neck soft tissues: Prevertebral soft tissues are within normal limits. Other: The airway is patent. The lung apices are clear. Minimal bilateral carotid bulb calcifications . IMPRESSION: 1. Acute bilateral frontal lobe cortical contusions. 2. Trace acute left lateral intraventricular hemorrhage. 3. No evidence of acute cervical spine fracture. 4. Remote fractures of the C7 spinous process and T1 vertebral body redemonstrated. 5. Moderate multilevel degenerative disc disease and facet arthropathy. Findings called to and discussed with Dr. Arlet Mix at 12:47 PM on 11/05/2023.
[2023-11-05] MEDS ORDERED: Kcentra / Balfaxar PER PHARMACY 1 EACH MISC MISCELLANE PRN (13:03)
[2023-11-05 13:10] LABS: Partial Thromboplastin Time 26.6 sec (22.0-30.0); Prothrombin Time 10.9 sec (10.0-12.5)
[2023-11-05] MEDS ORDERED: EMPTY BAG 1 BAG with HUMAN PROTHROMBN CMPL-BALFAXAR 1,840 UNIT IV ONE (13:15)
--- NOTE | 2023-11-05 13:19 | XR ---
EXAMINATION TYPE: XR pelvis AP view DATE OF EXAM: 11/05/2023 12:21 PM CLINICAL INDICATION:Female, 82 years old with history of Trauma; COMPARISON: None TECHNIQUE: XR pelvis AP view, examined in a single projection. FINDINGS: There is no evidence of fracture or dislocation. There is no soft tissue abnormality. No a bnormal calcifications are present. The spine appears intact. The hips appear intact. Osteophyte form ation of the superior acetabulum bilaterally with mild joint space narrowing. IMPRESSION: 1. No acute osseous pathology. 2. Moderate degeneration changes of the hip.
--- NOTE | 2023-11-05 13:20 | XR ---
EXAMINATION TYPE: XR chest 1V portable DATE OF EXAM: 11/05/2023 12:21 PM CLINICAL INDICATION:Female, 82 years old with history of trauma; COMPARISON: Chest radiographs from 11/05/2023 TECHNIQUE: XR chest 1V portable Frontal view of the chest. FINDINGS: Lungs/Pleura: There is no evidence of pleural effusion, focal consolidation, or pneumothorax. Pulmonary vascularity: Unremarkable. Heart/mediastinum: Cardiomediastinal silhouette is enlarged and stable. Atherosclerotic calcificatio ns are seen in the aorta. Musculoskeletal: No acute osseous pathology. Right upper quadrant cholecystectomy clips. IMPRESSION: No acute cardiopulmonary disease/process.
[2023-11-05] MEDS: EMPTY BAG 1 BAG with HUMAN PROTHROMBN CMPL-BALFAXAR 1,840 UNIT IV ONE (13:28)
[2023-11-05 13:36] VITALS: BP 160/88; PULSE 83; RESP 16; TEMP 98.3
== END 2023-11-05 13:38 | disposition other institution (70) ==
LOC: EC 11:51
DX: S06.30AA Unspecified focal traumatic brain injury with loss of consciousness status unknown, initial encounter (principal); S01.01XA Laceration without foreign body of scalp, initial encounter; D68.51 Activated protein C resistance; Z79.01 Long term (current) use of anticoagulants; Z88.1 Allergy status to other antibiotic agents; Z88.5 Allergy status to narcotic agent; W19.XXXA Unspecified fall, initial encounter; Y92.481 Parking lot as the place of occurrence of the external cause
CPT/HCPCS: 36415; 86900; 86901; 80053; 84484; 85025; 85610; 85730; 86850; 80320; 72170; 71045; 72125; 70450; 12001; 99291; 96374; J7165

== ENCOUNTER → 2023-11-23 | Outpatient (CLI) | payer MEDICARE ==
--- NOTE | 2023-12-16 16:35 | CT ---
EXAMINATION TYPE: CT brain wo/w con CT DLP: 2266.60 mGycm, Automated exposure control for dose reduction was used. DATE OF EXAM: 11/23/2023 3:44 PM COMPARISON: CT brain and C-spine 11/05/2023. CLINICAL INDICATION: Female, 82 old with history of brain bleed; , TECHNIQUE: Axial CT images of the brain were obtained followed by contrast enhanced axial images of the brain with 100 cc of ISO-view 300 IV contrast. One or more CT dose reduction strategies were utilized during this examination. Coronal and sagittal reformats reviewed. Delayed interpretation due to institution cyber attack. FINDINGS: Extra-axial spaces: No abnormal extra-axial fluid collections. Ventricular system: Within normal limits. Resolution of previously demonstrated intraventricular hemorrhage. Cerebral parenchyma: Age-appropriate cerebral volume loss. No acute intraparenchymal hemorrhage or mass effect. Resolution of bilateral frontal lobe contusions. Development of anterior left frontal lobe hypoattenuating region with preservation of abel-white junction at site of prior parenchymal contusion (series 4, image 50). This is near midline. The abel-white junction is well differentiated. Scattered hypoattenuating areas are seen within the white matter. No abnormal enhancement is seen after the administration of intravenous contrast. Similar nonspecific right basal ganglia calcifications. Cerebellum: Unremarkable. Mass effect: No evidence of midline shift. Intracranial vasculature: Atherosclerotic calcifications of the intracranial vessels. Soft tissues: Normal. Calvarium/osseous structures: No depressed skull fracture. Benign hyperostosis frontalis noted. Paranasal sinuses and mastoid air cells: Clear. Visualized orbits: Bilateral aphakia IMPRESSION: No acute intracranial process. Resolution of previously demonstrated intraventricular hemorrhage and bilateral frontal lobe hyperdense contusions. Development of left frontal lobe hypodense region at site of contusion which is likely sequelae of traumatic brain injury. No abnormal contrast enhancement. MTDD
== END | disposition home or self-care (01) ==
LOC: RADCTMAIN 14:36
PROVIDERS: ATTEND Pediatrics
DX: S00.93XA Contusion of unspecified part of head, initial encounter (principal); Z86.73 Personal history of transient ischemic attack (TIA), and cerebral infarction without residual deficits
CPT/HCPCS: 70470; Q9967

== ENCOUNTER → 2024-02-29 | Outpatient (CLI) | payer MEDICARE ==
--- NOTE | 2024-02-29 11:38 | XR ---
EXAMINATION TYPE: XR abdomen 2V DATE OF EXAM: 02/29/2024 11:12 AM COMPARISON: 02/29/2024 CLINICAL INDICATION: Female, 83 years old with history of R10.9 UNSPECIFIED ABDOMINAL PAIN; [facility] TECHNIQUE: Two views of the abdomen were obtained. FINDINGS: Moderate amount stool with gaseous dilation of bowel.The bowel gas pattern is otherwise non specific without dilated loops of small or large bowel. There is no evidence for organomegaly or pneu moperitoneum. The osseous structures are intact. No abnormal calcifications are present. Fecal mate rial and gas are demonstrated throughout the colon and rectum. Right upper quadrant course thickenin g clips. Degeneration changes of the hips. IMPRESSION: 1. Gaseous dilation Moderate amount of stool throughout the colon. [facility], , 02/29/2024 11:36 AM
== END | disposition home or self-care (01) ==
LOC: RADXRMAIN 10:52
PROVIDERS: ATTEND Internal Medicine Gastroenterology
DX: R10.9 Unspecified abdominal pain (principal); R19.5 Other fecal abnormalities; R14.0 Abdominal distension (gaseous)
CPT/HCPCS: 74019

== ENCOUNTER → 2024-03-02 | Outpatient (CLI) | payer MEDICARE ==
[2024-03-02 15:56] LABS: Basophils # (A) 0.08 X 10*3/uL (0.00-0.10); Basophils % (A) 0.8 %; Eosinophils # (A) 0.35 X 10*3/uL (0.04-0.35); Eosinophils % (A) 3.6 %; HCT 34.6 % (37.2-46.3); HGB 10.7 g/dL (12.0-15.0); Lymphocytes # (A) 0.66 X 10*3/uL (0.90-5.00); Lymphocytes % (A) 6.7 %; MCH 28.3 pg (27.0-32.0); MCHC 30.9 g/dL (32.0-37.0); MCV 91.5 FL (80.0-97.0); Monocytes # (A) 0.81 X 10*3/uL (0.20-1.00); Monocytes % (A) 8.2 %; NRBC Per 100 WBC 0 X 10*3/uL (0.00-0.01); Neutrophils # (A) 7.86 X 10*3/uL (1.80-7.70); Platelet Count 422 X 10*3/uL (140-440); RBC 3.78 X 10*6/uL (4.10-5.20); RDW 14.8 % (11.5-14.5); WBC 9.83 X 10*3/uL (4.50-10.00)
[2024-03-02 16:23] LABS: % Iron Saturation 10.75 (12.00-45.00); Chol/HDL Ratio 2.33 Ratio; Iron 30 UG/DL (50-170); LDL Cholesterol,Calculated 60.9 mg/dL (0.0-131.0); Total Iron Binding Capacity 279 UG/DL (228-460); VLDL Calculation 15.64 mg/dL (5.00-40.00)
[2024-03-02 16:24] LABS: ALT 14 U/L (8-44); AST 19 U/L (13-35); Albumin 3.8 g/dL (3.8-4.9); Albumin/Globulin Ratio 1.73 Ratio (1.60-3.17); Alkaline Phosphatase 81 U/L (41-126); BUN/Creat Ratio 15.17 Ratio (12.00-20.00); Blood Urea Nitrogen 9.1 mg/dL (9.0-27.0); Calcium 8.3 mg/dL (8.7-10.3); Carbon Dioxide 25.6 mmol/L (21.6-31.8); Chloride 100 mmol/L (96-109); Ferritin 97.7 ng/mL (10.0-291.0); Globulin 2.2 g/dL (1.6-3.3); Glucose 83 mg/dL (70-110); Potassium 4.7 mmol/L (3.5-5.5); Sodium 137 mmol/L (135-145); T4, Free (Free Thyroxine) 1.54 ng/dL (0.80-1.80); Total Bilirubin 0.3 mg/dL (0.3-1.2)
== END | disposition home or self-care (01) ==
LOC: LABWHC1 08:58
PROVIDERS: ATTEND Internal Medicine
DX: E03.9 Hypothyroidism, unspecified (principal); D64.9 Anemia, unspecified
CPT/HCPCS: 36415; 80053; 80061; 82306; 82607; 82728; 82746; 83540; 83550; 84439; 84443; 85025

== ENCOUNTER → 2024-07-04 | Outpatient (CLI) | payer MEDICARE | LOC: CPPFTMAIN 09:31 | PROVIDERS: ATTEND Internal Medicine Rheumatology | DX: M34.9 Systemic sclerosis, unspecified (principal); Z88.1 Allergy status to other antibiotic agents; Z88.5 Allergy status to narcotic agent | CPT/HCPCS: 94060; 94726; 94729 ==

== ENCOUNTER 2024-10-09 10:31 | Inpatient (IN) | payer MEDICARE ==
[2024-10-09 11:28] LABS: Basophils # (A) 0.04 10*3/uL (0.00-0.10); Basophils % (A) 0.3 %; Eosinophils # (A) 0.01 10*3/uL (0.04-0.35); Eosinophils % (A) 0.1 %; HCT 26.9 % (37.2-46.3); HGB 8.8 g/dL (12.0-15.0); Lymphocytes # (A) 0.35 10*3/uL (0.90-5.00); Lymphocytes % (A) 2.2 %; MCH 27.8 pg (27.0-32.0); MCHC 32.7 g/dL (32.0-37.0); MCV 84.9 fL (80.0-97.0); Mean Platelet Volume 9.4 fL (9.5-12.2); Monocytes # (A) 0.82 10*3/uL (0.20-1.00); Monocytes % (A) 5.2 %; Neutrophils # (A) 14.56 10*3/uL (1.80-7.70); Neutrophils % (A) 91.4 %; Platelet Count 402 10*3/uL (140-440); RBC 3.17 10*6/uL (4.10-5.20); RDW 15.2 % (11.5-14.5)
--- NOTE | 2024-10-09 11:32 | ED ---
General Adult HPI - General Chief complaint: Shortness of Breath Stated complaint: SOB,Vomiting Time Seen by Provider: 10/09/24 10:44 Source: patient, family, RN notes reviewed, old records reviewed Mode of arrival: wheelchair Limitations: no limitations - History of Present Illness Initial comments: 83-year-old female presenting for evaluation of of dyspnea, and abdominal pain and distention. Patient denies prior history of cardiac disease. She states that she has had increased shortness of breath and lower extremity edema over the past several days. She has also had some nasal drainage. She reports poor appetite and persistent nausea and vomiting. She states she had a bowel movement yesterday but has not been passing gas today. She reports generalized abdominal discomfort and distention as well. - Related Data Home Medications Medication Instructions Recorded Confirmed Levothyroxine Sodium [Synthroid] 112 mcg PO [id number] 10/05/13 04/30/20 Cholecalciferol [Vitamin D3 (25 1,000 unit PO DAILY 11/22/14 04/30/20 Mcg = 1000 Iu)] Biotin 10,000 mcg PO DAILY 01/22/20 04/30/20 Ferrous Sulfate [Iron] 325 mg PO DAILY 01/22/20 04/30/20 Hydroxychloroquine Sulfate 200 mg PO BID 01/22/20 04/30/20 [Plaquenil] Magnesium 250 mg PO HS 01/22/20 04/30/20 NIFEdipine [NIFEdipine ER 60 mg PO BID 01/22/20 04/30/20 (Osmotic)] Amitriptyline HCl [Elavil] 50 mg PO HS 04/30/20 04/30/20 Rivaroxaban [Xarelto] 20 mg PO HS 04/30/20 04/30/20 Allergies Allergy/AdvReac Type Severity Reaction Status Date / Time azithromycin [From Zithromax] AdvReac Nausea & Verified 10/09/24 10:37 Vomiting morphine AdvReac Nausea & Verified 10/09/24 10:37 Vomiting Review of Systems ROS Statement: Those systems with pertinent positive or pertinent negative responses have been documented in the HPI. ROS Other: All systems not noted in ROS Statement are negative. Past Medical History Past Medical History: Blood Disorder, Deep Vein Thrombosis (DVT), Eye Disorder, GERD/Reflux, GI Bleed, Hearing Disorder / Deafness, Osteoarthritis (OA), Skin Disorder, Thyroid Disorder Additional Past Medical History / Comment(s): Factor V Leiden, hx. headaches, hx. Hiatal Hernia, gastric ulcer, belching. worsening GERD., BILAT CATARACTS, Lupus. fell 3 weeks ago, thinks she tore her left rotator cuff. shingles 01/22/20 History of Any Multi-Drug Resistant Organisms: None Reported Past Surgical History: Appendectomy, Cholecystectomy, Ear Surgery, Hysterectomy, Joint Replacement, Tonsillectomy Additional Past Surgical History / Comment(s): carpal tunnel surgery rotator cuff surgery bilateral and left twice, left knee replacement, bilat cataract surgery, Ari Fundoplasty, EGD, REVISION OF ARI FUNDOPLASTY Past Anesthesia/Blood Transfusion Reactions: No Reported Reaction Additional Past Anesthesia/Blood Transfusion Reaction / Comment(s): no complications with prior blood transfusions Past Psychological History: No Psychological Hx Reported Smoking Status: Never smoker Past Alcohol Use History: None Reported Past Drug Use History: None Reported - Past Family History Father Family Medical History: CVA/TIA Additional Family Medical History / Comment(s): alcoholism Sister(s) Family Medical History: Diabetes Mellitus Additional Family Medical History / Comment(s): schleroderma Brother(s) Family Medical History: Diabetes Mellitus Mother Family Medical History: No Reported History Additional Family Medical History / Comment(s): heart problems General Exam Limitations: no limitations General appearance: alert, in no apparent distress Head exam: Present: atraumatic, normocephalic Eye exam: Present: normal appearance, PERRL ENT exam: Present: normal exam Neck exam: Present: normal inspection. Absent: tenderness, meningismus Respiratory exam: Present: respiratory distress, rales Cardiovascular Exam: Present: regular rate, normal rhythm, JVD GI/Abdominal exam: Present: distended, tenderness Extremities exam: Present: pedal edema Neurological exam: Present: alert, oriented X3, CN II-XII intact. Absent: motor sensory deficit Psychiatric exam: Present: normal affect, normal mood Skin exam: Present: warm, dry, intact Course Vital Signs 10/09/24 10/09/24 10/09/24 10:33 11:05 11:07 Temperature 97.5 F L Pulse Rate 95 Respiratory 24 Rate Blood Pressure 113/61 O2 Sat by Pulse 87 L 88 L 96 Oximetry 10/09/24 12:53 Temperature Pulse Rate 87 Respiratory 20 Rate Blood Pressure 120/62 O2 Sat by Pulse 96 Oximetry Medical Decision Making - Medical Decision Making Was pt. sent in by a medical professional or institution (SHAMAR Moran, EMPLOYEE DEVELOPMENT MANAGER, urgent care, hospital, or snf...) When possible be specific @ -No Did you speak to anyone other than the patient for history (EMS, parent, family, police, friend...)? What history was obtained from this source @ -No Did you review nursing and triage notes (agree or disagree)? Why? @ -I reviewed and agree with nursing and triage notes Were old charts reviewed (outside hosp., previous admission, EMS record, old EKG, old radiological studies, urgent care reports/EKG's, snf records)? Report findings @ -No old charts were reviewed Differential Dyspnea: Coronary syndrome, arrhythmia, tamponade, asthma, COPD, pulmonary embolism, pneumonia, pneumothorax, pulmonary effusion, anaphylaxis, diabetic ketoacidosis, flailed chest, pulmonary contusion, diaphragmatic rupture, anemia, neuromuscular, this is not meant to be an all-inclusive list. EKG interpreted by me (3pts min.). @ -Sinus rhythm rate of 88, KS interval 132, QRS duration 96, QTc [address] segment elevation. X-rays interpreted by me (1pt min.). @ -Chest x-ray shows left-sided pleural effusion, central pulmonary vascular congestion CT interpreted by me (1pt min.). @CT shows distended small bowel consistent with impending small bowel obstruction. U/S interpreted by me (1pt. min.). @ -None done What testing was considered but not performed or refused? (CT, X-rays, U/S, labs)? Why? @ -None What meds were considered but not given or refused? Why? @ -None Did you discuss the management of the patient with other professionals (professionals i.e. SHAMAR Moran, EMPLOYEE DEVELOPMENT MANAGER, lab, RT, psych nurse, hospital social worker, philosophy lecturer, teacher, chief talent officer, foster care case manager)? Give summary @[facility] physician group Was smoking cessation discussed for >3mins.? @ -No Was critical care preformed (if so, how long)? @ -No Were there social determinants of health that impacted care today? How? (Homelessness, low income, unemployed, alcoholism, drug addiction, transportation, low edu. Level, literacy, decrease access to med. care, alf, rehab)? @ -No Was there de-escalation of care discussed even if they declined (Discuss DNR or withdrawal of care, Hospice)? DNR status @ -No What co-morbidities impacted this encounter? (DM, HTN, Smoking, COPD, CAD, Cancer, CVA, ARF, Chemo, Hep., AIDS, mental health diagnosis, sleep apnea, morbid obesity)? @ -None Was patient admitted / discharged? Hospital course, mention meds given and route, prescriptions, significant lab abnormalities, going to OR and other pertinent info. @ -[83-year-old female presenting with dyspnea and abdominal pain and distention. Patient has JVD, Rales, lower extremity edema. No prior history of CHF. She has an elevated BNP and a chest x-ray consistent with CHF. She has had very poor intake over the past several days secondary to abdominal pain nausea vomiting. She is distended on exam. CT shows significant small bowel dilatation and air-fluid levels. NG tube was placed in the emergency department with concern for small bowel obstruction. Patient admitted to internal medicine with both cardiology and general surgery on consult. Patient has a leukocytosis and the possibility of concurrent pneumonia in addition to heart failure. She started on antibiotics. She is anemic which is slightly lower than baseline. Normal lactic acid. Sodium 128. Undiagnosed new problem with uncertain prognosis? @ -No Drug Therapy requiring intensive monitoring for toxicity (Heparin, Nitro, Insul in, Cardizem)? @ -No Were any procedures done? @ -No Diagnosis/symptom? @ -[New onset heart failure, bowel obstruction Acute, or Chronic, or Acute on Chronic? @ -Acute Uncomplicated (without systemic symptoms) or Complicated (systemic symptoms)? @ -[default Side effects of treatment? @ -No Exacerbation, Progression, or Severe Exacerbation? @ -No Poses a threat to life or bodily function? How? (Chest pain, [place], [place], pneumonia, PE, COPD, DKA, ARF, appy, cholecystitis, CVA, Diverticulitis, Homicidal, Suicidal, threat to staff... and all critical care pts) @Yes, respiratory failure, sepsis - Lab Data Result diagrams: 10/09/24 11:05 10/09/24 11:05 Lab Results 10/09/24 10/09/24 10/09/24 Range/Units 11:05 11:05 11:05 WBC 15.90 H (4.50-10.00) 10*3/uL RBC 3.17 L (4.10-5.20) 10*6/uL Hgb 8.8 L (12.0-15.0) g/dL Hct 26.9 L (37.2-46.3) % MCV 84.9 (80.0-97.0) fL MCH 27.8 (27.0-32.0) pg MCHC 32.7 (32.0-37.0) g/dL Plt Count 402 (140-440) 10*3/uL MPV 9.4 L (9.5-12.2) fL Immature Gran % (Auto) 0.8 % Neutrophils % 91.4 % Lymphocytes % 2.2 % Monocytes % 5.2 % Eosinophils % 0.1 % Basophils % 0.3 % Immature Gran # 0.12 H (0.00-0.04) 10*3/uL Neutrophils # 14.56 H (1.80-7.70) 10*3/uL Lymphocytes # 0.35 L (0.90-5.00) 10*3/uL Monocytes # 0.82 (0.20-1.00) 10*3/uL Eosinophils # 0.01 L (0.04-0.35) 10*3/uL Basophils # 0.04 (0.00-0.10) 10*3/uL PT 11.1 (10.0-12.5) sec INR 1.0 (<1.2) APTT 24.6 (22.0-30.0) sec Sodium 128 L (137-145) mmol/L Potassium 5.2 H (3.5-5.1) mmol/L Chloride 93 L (98-107) mmol/L Carbon Dioxide 22 (22-30) mmol/L Anion Gap 13 mmol/L BUN 41 H (7-17) mg/dL Creatinine 0.94 (0.52-1.04) mg/dL Est GFR (CKD-EPI)AfAm 65 (>60 ml/min/1.73 sqM) Est GFR (CKD-EPI)NonAf 56 (>60 ml/min/1.73 sqM) Glucose 100 H (74-99) mg/dL Plasma Lactic Acid Cornel (0.7-2.0) mmol/L Calcium 8.4 (8.4-10.2) mg/dL Magnesium 2.4 H (1.6-2.3) mg/dL Total Bilirubin 0.7 (0.2-1.3) mg/dL AST 54 H (14-36) U/L ALT 49 H (4-34) U/L Alkaline Phosphatase 102 (38-126) U/L Troponin I (0.000-0.034) ng/mL NT-Pro-B Natriuret Pep 2260 pg/mL Total Protein 6.0 L (6.3-8.2) g/dL Albumin 3.5 (3.5-5.0) g/dL 10/09/24 10/09/24 Range/Units 11:05 11:05 WBC (4.50-10.00) 10*3/uL RBC (4.10-5.20) 10*6/uL Hgb (12.0-15.0) g/dL Hct (37.2-46.3) % MCV (80.0-97.0) fL MCH (27.0-32.0) pg MCHC (32.0-37.0) g/dL Plt Count (140-440) 10*3/uL MPV (9.5-12.2) fL Immature Gran % (Auto) % Neutrophils % % Lymphocytes % % Monocytes % % Eosinophils % % Basophils % % Immature Gran # (0.00-0.04) 10*3/uL Neutrophils # (1.80-7.70) 10*3/uL Lymphocytes # (0.90-5.00) 10*3/uL Monocytes # (0.20-1.00) 10*3/uL Eosinophils # (0.04-0.35) 10*3/uL Basophils # (0.00-0.10) 10*3/uL PT (10.0-12.5) sec INR (<1.2) APTT (22.0-30.0) sec Sodium (137-145) mmol/L Potassium (3.5-5.1) mmol/L Chloride (98-107) mmol/L Carbon Dioxide (22-30) mmol/L Anion Gap mmol/L BUN (7-17) mg/dL Creatinine (0.52-1.04) mg/dL Est GFR (CKD-EPI)AfAm (>60 ml/min/1.73 sqM) Est GFR (CKD-EPI)NonAf (>60 ml/min/1.73 sqM) Glucose (74-99) mg/dL Plasma Lactic Acid Cornel 1.8 (0.7-2.0) mmol/L Calcium (8.4-10.2) mg/dL Magnesium (1.6-2.3) mg/dL Total Bilirubin (0.2-1.3) mg/dL AST (14-36) U/L ALT (4-34) U/L Alkaline Phosphatase (38-126) U/L Troponin I <0.012 (0.000-0.034) ng/mL NT-Pro-B Natriuret Pep pg/mL Total Protein (6.3-8.2) g/dL Albumin (3.5-5.0) g/dL Disposition Clinical Impression: Acute pulmonary edema, Congestive heart failure Disposition: ADMITTED IP TO THIS HOSP Condition: Stable Is patient prescribed a controlled substance at d/c from ED?: No Referrals: Tariq Ridley DO [Primary Care Provider] - 1-2 days Time of Disposition: 13:32
[2024-10-09 11:37] LABS: Partial Thromboplastin Time 24.6 sec (22.0-30.0); Prothrombin Time 11.1 sec (10.0-12.5)
[2024-10-09 11:56] LABS: ALT 49 U/L (4-34); AST 54 U/L (14-36); African American GFR (CKD) 65 (>60 ml/min/1.73 sqM); Albumin 3.5 g/dL (3.5-5.0); Alkaline Phosphatase 102 U/L (38-126); Anion Gap 13 mmol/L; Blood Urea Nitrogen 41 mg/dL (7-17); Calcium 8.4 mg/dL (8.4-10.2); Carbon Dioxide 22 mmol/L (22-30); Chloride 93 mmol/L (98-107); Glucose 100 mg/dL (74-99); Magnesium 2.4 mg/dL (1.6-2.3); Non-African American GFR(CKD) 56 (>60 ml/min/1.73 sqM); Potassium 5.2 mmol/L (3.5-5.1); Sodium 128 mmol/L (137-145); Total Bilirubin 0.7 mg/dL (0.2-1.3)
[2024-10-09 12:05] LABS: NT-Pro-B-Type Natriuretic Pept 2260 pg/mL
--- NOTE | 2024-10-09 12:16 | XR ---
EXAMINATION TYPE: XR chest 2V DATE OF EXAM: 10/09/2024 12:11 PM COMPARISON: 11/05/2023 CLINICAL INDICATION: Female, 83 years old with history of difficulty breathing, shortness of breath TECHNIQUE: AP and lateral views FINDINGS: Heart is mild to moderately enlarged. Diffuse interstitial opacities. Small left pleural effusion wit h retrocardiac and left basilar opacity. 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 IMPRESSION: Cardiomegaly with pulmonary vascular congestion. Small left pleural effusion with adjacent atelectasi s and/or consolidation. [facility], Workstation: [facility], 10/09/2024 12:14 PM
--- NOTE | 2024-10-09 12:30 | CT ---
EXAMINATION TYPE: CT abdomen pelvis wo con DATE OF EXAM: 10/09/2024 12:11 PM COMPARISON: None. CLINICAL INDICATION: Female, 83 years old with history of ab pain and distention, ABD PAIN TECHNIQUE: Axial images were obtained from above the diaphragm to the pubic rami in the axial plane a t 5 mm thick sections. Reconstructed images are reviewed on the computer in the coronal plane. CONTRAST: mL of . Study performed without Oral Contrast DLP: 391.5 mGycm, Automated exposure control for dose reduction was used. FINDINGS: Limited CT sections are obtained the lung bases. Scattered infiltrates are in the lingula and left l ower lobe likely on the basis of atelectasis. Small right minimal left pleural effusions are present. Coronary artery calcifications present. A small to moderate pericardial effusion is present. CT ABDOMEN: Liver: Normal Spleen: Normal Pancreas: Normal Adrenal glands: The adrenal glands are normal. Gallbladder: Gallbladder is surgically absent. Kidneys: No masses are evident. No hydronephrosis is present. No cysts are present. No renal stone s are evident. Aorta: Vascular calcification is within the aorta. Inferior vena cava: Normal. CT PELVIS: There are fluid-filled small bowel loops which are distended. Scattered air-fluid levels are present. There fluid levels are present within the colon. Diverticular changes are present. No acute divertic ulitis. This study is without oral contrast. Bowel evaluation. Appendix: Not identified. No dilated tubular structure or inflammatory change evident. Urinary bladder: Normal. Genitourinary structures: Uterus and ovaries are not identified. Osseous structures: No suspicious lytic or sclerotic lesions. IMPRESSION: 1. Small left and minimal right pleural effusion. 2. Infiltrate at the left base may be related to compressive atelectasis. 3. Ufelp-[id number] pericardial effusion. 4. Air-filled and fluid-filled loops of colon and small bowel. Correlate for ileus. Follow-up can be performed as clinically indicated. [facility], , 10/09/2024 12:28 PM
[2024-10-09] MEDS ORDERED: HYDROmorphone 0.5 MG/0.5 ML SYRINGE IVP PRN (13:28)
[2024-10-09] MEDS ORDERED: ONDANSETRON 4 MG/2 ML VIAL IVP PRN (13:28)
[2024-10-09] MEDS ORDERED: NALOXONE 0.4 MG/ML 1 ML VIAL IV PRN (13:28)
[2024-10-09] MEDS ORDERED: SODIUM CHLORIDE 0.9% 1,000 ML IV SCH (14:15)
[2024-10-09] MEDS: PANTOPRAZOLE 40 MG/10 ML VIAL IVP ONE (14:53)
--- NOTE | 2024-10-09 15:44 | P.GSCN ---
History of Present Illness Consult date: 10/09/24 History of present illness: CHIEF COMPLAINT: Abdominal pain and distention HISTORY OF PRESENT ILLNESS: This is a 83-year-old female who presented to the ER with complaints of abdominal pain across the lower abdomen with abdominal distention x 5 days. She also has been having shortness of breath. Patient reports having nausea. She denies any vomiting. She feels very bloated. Her last bowel movement was 2 days ago. She denies any flatus. Denies any history of bowel obstruction. She does have history of constipation and leakage of stool. Past surgical history includes appendectomy cholecystectomy, Niesen fundoplication with revision and hysterectomy. She also has a history of factor V Leiden and DVTs on Xarelto. CT scan abdomen and pelvis had reported air- filled and fluid-filled loops of colon and small bowel correlate for ileus. Surgical service has been consulted for possible small bowel obstruction. Cardiology has been consulted for CHF. PAST MEDICAL HISTORY: Factor V Leiden, multiple DVTs, Eye Disorder, GERD/Reflux, GI Bleed, Hearing Dis order / Deafness, Osteoarthritis (OA), Skin Disorder, Thyroid Disorder, lupus PAST SURGICAL HISTORY: Appendectomy, Cholecystectomy, Ear Surgery, Hysterectomy, Joint Replacement, Tonsillectomy, carpal tunnel surgery rotator cuff surgery bilateral and left twice, left knee replacement, bilat cataract surgery, Saulo Fundoplasty, EGD, REVISION OF SAULO FUNDOPLASTY MEDICATIONS: See below ALLERGIES: See below SOCIAL HISTORY: No illicit drug use. REVIEW OF SYSTEMS: CONSTITUTIONAL: Denies fever or chills. HEENT: Denies blurred vision, vision changes, or eye pain. Denies hemoptysis CARDIOVASCULAR: Denies chest pain or pressure. RESPIRATORY: No shortness of breath. GASTROINTESTINAL: See HPI for pertinent findings HEMATOLOGIC: Denies bleeding disorders. GENITOURINARY: Denies any blood in urine or increased urinary frequency. SKIN: Denies pruitis. Denies rash. PHYSICAL EXAM: VITAL SIGNS: Reviewed GENERAL: Well-developed in no acute distress. HEENT: No sclera icterus. Extraocular movements grossly intact. Moist buccal mucosa. Head is atraumatic, normocephalic. No nasal drainage. ABDOMEN: Distended. Nontender. No rebound or guarding noted. Tympanic NEUROLOGIC: Alert and oriented. Cranial nerves II through XII grossly intact. LABORATORY DATA: WBC 15.9 Hgb 8.8 platelets 402 INR 1.0 Sodium 128 potassium 5.2 creatinine 0.94 Lactic acid 1.8 magnesium 2.4 total bilirubin 0.7 AST 54 ALT 59 alk phos 102 BNP 2260 IMAGING: CT scan abdomen pelvis reports small left and minimal right pleural effusion. Infiltrate at the left base may be related to compressive atelectasis. Small to moderate pericardial effusion. Air-filled and fluid-filled loops of colon and small bowel correlate for ileus Chest x-ray cardiomegaly with pulmonary vascular congestion. Small left pleural effusion with atelectasis and/or consolidation ASSESSMENT: 1. Abdominal distention with ileus noted on CT scan. CT scan reports air- filled and fluid-filled loops of colon and small bowel correlate for ileus 2. Electrolyte abnormalities with hyponatremia, hyperkalemia and hypermagnesemia PLAN: - Place NG tube for decompression - Keep patient n.p.o. - Continue antibiotics - Cano catheter ordered for strict I's and O's - Continue to correct electrolytes - CHF management per cardiology service - Agree with holding Carol Physician Rn Camp note has been reviewed by physician. Signing provider agrees with the documented findings, assessment, and plan of care. Past Medical History Past Medical History: Blood Disorder, Deep Vein Thrombosis (DVT), Eye Disorder, GERD/Reflux, GI Bleed, Hearing Disorder / Deafness, Osteoarthritis (OA), Skin D isorder, Thyroid Disorder Additional Past Medical History / Comment(s): Factor V Leiden, hx. headaches, hx. Hiatal Hernia, gastric ulcer, belching. worsening GERD., BILAT CATARACTS, Lupus. fell 3 weeks ago, thinks she tore her left rotator cuff. shingles 01/22/20 History of Any Multi-Drug Resistant Organisms: None Reported Past Surgical History: Appendectomy, Cholecystectomy, Ear Surgery, Hysterectomy, Joint Replacement, Tonsillectomy Additional Past Surgical History / Comment(s): carpal tunnel surgery rotator cuff surgery bilateral and left twice, left knee replacement, bilat cataract surgery, Saulo Fundoplasty, EGD, REVISION OF SAULO FUNDOPLASTY Past Anesthesia/Blood Transfusion Reactions: No Reported Reaction Additional Past Anesthesia/Blood Transfusion Reaction / Comm: no complications with prior blood transfusions Past Psychological History: No Psychological Hx Reported Smoking Status: Never smoker Past Alcohol Use History: None Reported Past Drug Use History: None Reported - Past Family History Father Family Medical History: CVA/TIA Additional Family Medical History / Comment(s): alcoholism Sister(s) Family Medical History: Diabetes Mellitus Additional Family Medical History / Comment(s): schleroderma Brother(s) Family Medical History: Diabetes Mellitus Mother Family Medical History: No Reported History Additional Family Medical History / Comment(s): heart problems Medications and Allergies Home Medications Medication Instructions Recorded Confirmed Type Biotin 10,000 mcg PO DAILY 01/22/20 10/09/24 History Ferrous Sulfate [Iron] 325 mg PO DAILY 01/22/20 10/09/24 History Hydroxychloroquine Sulfate 200 mg PO BID 01/22/20 10/09/24 History [Plaquenil] Magnesium 250 mg PO HS 01/22/20 10/09/24 History NIFEdipine [NIFEdipine ER 60 mg PO BID 01/22/20 10/09/24 History (Osmotic)] Amitriptyline HCl [Elavil] 50 mg PO HS 04/30/20 10/09/24 History Cholecalciferol [Vitamin D3 (125 125 mcg PO DAILY 10/09/24 10/09/24 History Mcg = 5000 Iu)] L.acidoph,Paracasei, B.lactis 1 cap PO DAILY 10/09/24 10/09/24 History [Probiotic] Levothyroxine Sodium [Synthroid] 88 mcg PO DAILY 10/09/24 10/09/24 History Psyllium Husk [Fiber Capsule] 0.4 gm PO DAILY 10/09/24 10/09/24 History Rivaroxaban [Xarelto] 10 mg PO DAILY 10/09/24 10/09/24 History Allergies Allergy/AdvReac Type Severity Reaction Status Date / Time azithromycin [From Zithromax] AdvReac Nausea & Verified 10/09/24 14:25 Vomiting morphine AdvReac Nausea & Verified 10/09/24 10:37 Vomiting Surgical - Exam Vital Signs Temp Pulse Resp BP Pulse Ox 97.5 F L 95 24 113/61 87 L 10/09/24 10:33 10/09/24 10:33 10/09/24 10:33 10/09/24 10:33 10/09/24 10:33 Results - Labs 10/09/24 11:05 10/09/24 11:05 Abnormal Lab Results - Last 24 Hours (Table) 10/09/24 10/09/24 Range/Units 11:05 11:05 WBC 15.90 H (4.50-10.00) 10*3/uL RBC 3.17 L (4.10-5.20) 10*6/uL Hgb 8.8 L (12.0-15.0) g/dL Hct 26.9 L (37.2-46.3) % MPV 9.4 L (9.5-12.2) fL Immature Gran # 0.12 H (0.00-0.04) 10*3/uL Neutrophils # 14.56 H (1.80-7.70) 10*3/uL Lymphocytes # 0.35 L (0.90-5.00) 10*3/uL Eosinophils # 0.01 L (0.04-0.35) 10*3/uL Sodium 128 L (137-145) mmol/L Potassium 5.2 H (3.5-5.1) mmol/L Chloride 93 L (98-107) mmol/L BUN 41 H (7-17) mg/dL Glucose 100 H (74-99) mg/dL Magnesium 2.4 H (1.6-2.3) mg/dL AST 54 H (14-36) U/L ALT 49 H (4-34) U/L Total Protein 6.0 L (6.3-8.2) g/dL Diabetes panel 10/09/24 Range/Units 11:05 Sodium 128 L (137-145) mmol/L Potassium 5.2 H (3.5-5.1) mmol/L Chloride 93 L (98-107) mmol/L Carbon Dioxide 22 (22-30) mmol/L BUN 41 H (7-17) mg/dL Creatinine 0.94 (0.52-1.04) mg/dL Glucose 100 H (74-99) mg/dL Calcium 8.4 (8.4-10.2) mg/dL AST 54 H (14-36) U/L ALT 49 H (4-34) U/L Alkaline Phosphatase 102 (38-126) U/L Total Protein 6.0 L (6.3-8.2) g/dL Albumin 3.5 (3.5-5.0) g/dL Calcium panel 10/09/24 Range/Units 11:05 Calcium 8.4 (8.4-10.2) mg/dL Albumin 3.5 (3.5-5.0) g/dL Pituitary panel 10/09/24 Range/Units 11:05 Sodium 128 L (137-145) mmol/L Potassium 5.2 H (3.5-5.1) mmol/L Chloride 93 L (98-107) mmol/L Carbon Dioxide 22 (22-30) mmol/L BUN 41 H (7-17) mg/dL Creatinine 0.94 (0.52-1.04) mg/dL Glucose 100 H (74-99) mg/dL Calcium 8.4 (8.4-10.2) mg/dL Adrenal panel 10/09/24 Range/Units 11:05 Sodium 128 L (137-145) mmol/L Potassium 5.2 H (3.5-5.1) mmol/L Chloride 93 L (98-107) mmol/L Carbon Dioxide 22 (22-30) mmol/L BUN 41 H (7-17) mg/dL Creatinine 0.94 (0.52-1.04) mg/dL Glucose 100 H (74-99) mg/dL Calcium 8.4 (8.4-10.2) mg/dL Total Bilirubin 0.7 (0.2-1.3) mg/dL AST 54 H (14-36) U/L ALT 49 H (4-34) U/L Alkaline Phosphatase 102 (38-126) U/L Total Protein 6.0 L (6.3-8.2) g/dL Albumin 3.5 (3.5-5.0) g/dL
--- NOTE | 2024-10-09 15:50 | P.HPIM ---
History of Present Illness H&P Date: 10/09/24 History of present illness; Patient is a 83-year-old female with history of hypothyroidism, hearing loss, GERD, DVT, blood disorder factor V Leiden deficiency, SLE who presents with dyspnea, and abdominal pain and distention. Patient states that over the last 3 to 4 days she has had increasing generalized abdominal pain and distention. She states that she has not had a bowel movement since Wednesday and has not passed gas since around the same time. She states she tried Tums and Benefiber this morning without improvement. No previous similar incidents. She states she does have a history of hysterectomy, appendectomy and cholecystectomy. She also states she has history of IBS. Also during this time patient states she has shortness of breath which is worse with deep inspiration. She denies orthopnea, chest pain, or palpitations. She also states that deep inspiration makes her have dry cough. She reports absence of fever, nausea, vomiting, weakness, dizziness or dysuria. Spoke with the ER physician, patient admission was accepted by internal medicine service for treatment. REVIEW OF SYSTEMS: Pertinent positives and negatives noted in HPI. PHYSICAL EXAMINATION: VITAL SIGNS: Reviewed GENERAL: Resting comfortably in bed. EYES: PERRL, no scleral injection or icterus. HENT: Normocephalic, atraumatic, hearing grossly intact, moist mucous membranes. CARDIOVASCULAR: S1 and S2 present. No murmurs, rubs, or gallops. PULMONARY: Chest is clear to auscultation, no wheezing, rhonchi, or crackles. ABDOMEN: Soft, nontender. Distended. No palpable organomegaly. NEUROLOGICAL: Alert and oriented x 3. Gross neurological examination with no apparent focal deficits. EXTREMITIES: Trace pedal edema. SKIN: Chronic venous stasis dermatitis of left leg. ER FINDINGS: Labs significant for WBC 15.9, hemoglobin 8.8, sodium 128, potassium 5.2, chloride 93, BUN 41, creatinine 0.94, glucose 100, magnesium 2.4, AST 54, ALT 49, troponin <0.012, proBNP 2260 EKG independently interpreted showed sinus rhythm heart rate of 88, QTc 428, no ST segment elevation or depression seen, no T-wave inversions seen. Chest x-ray done independently interpreted showed cardiomegaly with pulmonary vascular congestion. Small left pleural effusion with adjacent atelectasis and/or consolidation. CT abdomen pelvis independently interpreted with findings of small left and minimal right pleural effusion, infiltrate at the left base, small to moderate pericardial effusion, air-filled and fluid-filled loops of colon correlate for ileus. ASSESSMENT AND PLAN: In summary, Patient is a 83-year-old female with history of hypothyroidism, hearing loss, GERD, DVT, blood disorder factor V Leiden deficiency who presents with dyspnea, and abdominal pain and distention. #Acute congestive heart failure #Hypervolemic hyponatremia #Mild hyperkalemia #Pericardial effusion without tamponade #Acute hypoxic respiratory failure -Last known echo EF 55 to 60% in 11/2019 -Chest x-ray shows cardiomegaly with pulmonary vascular congestion, small left pleural effusion CT abdomen pelvis with findings of small to moderate pericardial effusion -proBNP 2260 -Initial weight 56.6 kg, daily weights -When beginning diet, low sodium diet <2g daily, strict I/O, < 2L of total v olume intake daily -Supplemental O2 as needed Echocardiogram ordered -Cardiac monitoring -Monitor BMP tomorrow and this evening -IV Lasix 20 mg once -Cardiology consulted #Small bowel obstruction versus ileus #Leukocytosis likely due to above #Transaminitis - CT AP w/ contrast findings of air-filled and fluid-filled loops of colon NG tube placement w/ intermittent suction ordered Continue ondansetron 4 mg IVP every 8 hour as needed Continue pantoprazole 40 mg IV daily - Begin Zosyn 3.375 g every 8 hours - NPO for now, later full liquid diet Surgery consulted - Stop amitriptyline Chronic Medical Conditions: hypothyroidism hearing loss GERD History of DVT factor V Leiden deficiency SLE -Resume home medications, hold Xarelto and amitriptyline DVT ppx: Subcu heparin 5000 units twice daily Code status: Full code F: N.p.o. E: Replete as needed N: N.p.o. A: Ambulatory with intermittent cane use Anticipated discharge time and place: Pending clinical course Ferny Holley MD Internal Medicine Resident, PGY1 Dictation was produced using [employer] dictation software. Please excuse any grammatical, word or spelling errors. The patient is admitted with an anticipated [greater] than 2 midnight stay as inpatient status for evaluation of CHF. A total of 58 minutes was spent on the care of this complex patient more than 50% of the time was spent in counseling and care coordination. I have seen and evaluated the patient today. Discussed with the resident and agree with the residents finding and plan as documented in the resident's note. Changes highlighted in blue font. Past Medical History Past Medical History: Blood Disorder, Deep Vein Thrombosis (DVT), Eye Disorder, GERD/Reflux, GI Bleed, Hearing Disorder / Deafness, Osteoarthritis (OA), Skin Disorder, Thyroid Disorder Additional Past Medical History / Comment(s): Factor V Leiden, hx. headaches, hx. Hiatal Hernia, gastric ulcer, belching. worsening GERD., BILAT CATARACTS, Lupus. fell 3 weeks ago, thinks she tore her left rotator cuff. shingles 01/22/20 History of Any Multi-Drug Resistant Organisms: None Reported Past Surgical History: Appendectomy, Cholecystectomy, Ear Surgery, Hysterectomy, Joint Replacement, Tonsillectomy Additional Past Surgical History / Comment(s): carpal tunnel surgery rotator cuff surgery bilateral and left twice, left knee replacement, bilat cataract surgery, Saulo Fundoplasty, EGD, REVISION OF SAULO FUNDOPLASTY Past Anesthesia/Blood Transfusion Reactions: No Reported Reaction Additional Past Anesthesia/Blood Transfusion Reaction / Comment(s): no complications with prior blood transfusions Past Psychological History: No Psychological Hx Reported Smoking Status: Never smoker Past Alcohol Use History: None Reported Past Drug Use History: None Reported - Past Family History Father Family Medical History: CVA/TIA Additional Family Medical History / Comment(s): alcoholism Sister(s) Family Medical History: Diabetes Mellitus Additional Family Medical History / Comment(s): schleroderma Brother(s) Family Medical History: Diabetes Mellitus Mother Family Medical History: No Reported History Additional Family Medical History / Comment(s): heart problems Medications and Allergies Home Medications Medication Instructions Recorded Confirmed Type Biotin 10,000 mcg PO DAILY 01/22/20 10/09/24 History Ferrous Sulfate [Iron] 325 mg PO DAILY 01/22/20 10/09/24 History Hydroxychloroquine Sulfate 200 mg PO BID 01/22/20 10/09/24 History [Plaquenil] Magnesium 250 mg PO HS 01/22/20 10/09/24 History NIFEdipine [NIFEdipine ER 60 mg PO BID 01/22/20 10/09/24 History (Osmotic)] Amitriptyline HCl [Elavil] 50 mg PO HS 04/30/20 10/09/24 History Cholecalciferol [Vitamin D3 (125 125 mcg PO DAILY 10/09/24 10/09/24 History Mcg = 5000 Iu)] L.acidoph,Paracasei, B.lactis 1 cap PO DAILY 10/09/24 10/09/24 History [Probiotic] Levothyroxine Sodium [Synthroid] 88 mcg PO DAILY 10/09/24 10/09/24 History Psyllium Husk [Fiber Capsule] 0.4 gm PO DAILY 10/09/24 10/09/24 History Rivaroxaban [Xarelto] 10 mg PO DAILY 10/09/24 10/09/24 History Allergies Allergy/AdvReac Type Severity Reaction Status Date / Time azithromycin [From Zithromax] AdvReac Nausea & Verified 10/09/24 14:25 Vomiting morphine AdvReac Nausea & Verified 10/09/24 10:37 Vomiting Physical Exam Vitals: Vital Signs Temp Pulse Resp BP Pulse Ox 10/09/24 12:53 87 20 120/62 96 10/09/24 11:07 96 10/09/24 11:05 88 L 10/09/24 10:33 97.5 F L 95 24 113/61 87 L Intake and Output 10/08/24 10/09/24 10/09/24 22:59 06:59 14:59 Other: Weight 56.699 kg Results CBC & Chem 7: 10/09/24 11:05 10/09/24 11:05 Labs: Abnormal Lab Results - Last 24 Hours (Table) 10/09/24 10/09/24 Range/Units 11:05 11:05 WBC 15.90 H (4.50-10.00) 10*3/uL RBC 3.17 L (4.10-5.20) 10*6/uL Hgb 8.8 L (12.0-15.0) g/dL Hct 26.9 L (37.2-46.3) % MPV 9.4 L (9.5-12.2) fL Immature Gran # 0.12 H (0.00-0.04) 10*3/uL Neutrophils # 14.56 H (1.80-7.70) 10*3/uL Lymphocytes # 0.35 L (0.90-5.00) 10*3/uL Eosinophils # 0.01 L (0.04-0.35) 10*3/uL Sodium 128 L (137-145) mmol/L Potassium 5.2 H (3.5-5.1) mmol/L Chloride 93 L (98-107) mmol/L BUN 41 H (7-17) mg/dL Glucose 100 H (74-99) mg/dL Magnesium 2.4 H (1.6-2.3) mg/dL AST 54 H (14-36) U/L ALT 49 H (4-34) U/L Total Protein 6.0 L (6.3-8.2) g/dL
[2024-10-09] MEDS: PIPERACILLIN-TAZOBACTAM 3.375 GM in SODIUM CHLORIDE 0.9% 100 ML IVPB SCH (16:09)
[2024-10-09] MEDS: FUROSEMIDE 10 MG/ML 2 ML VIAL IV STA (16:09)
[2024-10-09 20:44] LABS: African American GFR (CKD) 74 (>60 ml/min/1.73 sqM); Anion Gap 13 mmol/L; Blood Urea Nitrogen 38 mg/dL (7-17); Calcium 8.3 mg/dL (8.4-10.2); Carbon Dioxide 22 mmol/L (22-30); Chloride 96 mmol/L (98-107); Glucose 102 mg/dL (74-99); Non-African American GFR(CKD) 64 (>60 ml/min/1.73 sqM); Potassium 4.5 mmol/L (3.5-5.1); Sodium 131 mmol/L (137-145)
[2024-10-09] MEDS ORDERED: AMITRIPTYLINE HCL 50 MG TAB PO SCH (21:00)
[2024-10-09 21:47] LABS: Appearance,Urine Clear (Clear); Bilirubin,Urine Negative (Negative); Blood,Urine Negative (Negative); Color,Urine Light Yellow; Glucose,Urine (UA) Negative (Negative); Ketones,Urine Negative (Negative); Leukocyte Esterase,Urine Negative (Negative); Nitrite,Urine Negative (Negative); Protein,Urine Negative (Negative); Specific Gravity,Urine 1.012 (1.001-1.035); Urobilinogen,Urine <2.0 mg/dL (<2.0)
[2024-10-09] MEDS: HYDROXYCHLOROQUINE SULFATE 200 MG TAB PO SCH (23:19)
[2024-10-09] MEDS: HEPARIN SODIUM,PORCINE 5,000 UNIT/ML 1 ML VIAL SQ SCH (23:21)
[2024-10-10 06:21] LABS: Basophils # (A) 0.04 10*3/uL (0.00-0.10); Basophils % (A) 0.3 %; Eosinophils # (A) 0.08 10*3/uL (0.04-0.35); Eosinophils % (A) 0.6 %; HCT 28.4 % (37.2-46.3); HGB 9.1 g/dL (12.0-15.0); Lymphocytes # (A) 0.57 10*3/uL (0.90-5.00); Lymphocytes % (A) 3.9 %; MCH 27.4 pg (27.0-32.0); MCV 85.5 fL (80.0-97.0); Mean Platelet Volume 9.8 fL (9.5-12.2); Monocytes # (A) 1.05 10*3/uL (0.20-1.00); Monocytes % (A) 7.3 %; Neutrophils # (A) 12.61 10*3/uL (1.80-7.70); Neutrophils % (A) 87.3 %; Platelet Count 460 10*3/uL (140-440); RBC 3.32 10*6/uL (4.10-5.20); RDW 15.4 % (11.5-14.5); WBC 14.44 10*3/uL (4.50-10.00)
[2024-10-10 06:41] LABS: ALT 60 U/L (4-34); AST 62 U/L (14-36); African American GFR (CKD) 82 (>60 ml/min/1.73 sqM); Albumin 3.4 g/dL (3.5-5.0); Alkaline Phosphatase 98 U/L (38-126); Anion Gap 13 mmol/L; Blood Urea Nitrogen 36 mg/dL (7-17); Calcium 7.9 mg/dL (8.4-10.2); Carbon Dioxide 23 mmol/L (22-30); Chloride 98 mmol/L (98-107); Glucose 67 mg/dL (74-99); Magnesium 2.4 mg/dL (1.6-2.3); Non-African American GFR(CKD) 71 (>60 ml/min/1.73 sqM); Potassium 4.3 mmol/L (3.5-5.1); Sodium 134 mmol/L (137-145); Total Bilirubin 0.7 mg/dL (0.2-1.3); Total Protein 5.8 g/dL (6.3-8.2)
[2024-10-10] MEDS: PANTOPRAZOLE 40 MG/10 ML VIAL IVP SCH (08:22)
[2024-10-10] MEDS ORDERED: FERROUS SULFATE 325 MG TAB PO SCH (09:00)
[2024-10-10] MEDS ORDERED: RIVAROXABAN 10 MG TAB PO SCH (09:00)
[2024-10-10] MEDS: LEVOTHYROXINE 88 MCG TAB PO SCH (09:20)
--- NOTE | 2024-10-10 10:20 | XR ---
EXAMINATION TYPE: XR chest 1V portable DATE OF EXAM: 10/10/2024 10:08 AM COMPARISON: 10/09/2024 CLINICAL INDICATION: Female, 83 years old with history of NG tube confirmation, , FINDINGS: NG tube tip suspected just below the GE junction level. Heart mildly enlarged. Small left pleural eff usion with patchy left base. Interstitial densities persist. IMPRESSION: 1. NG tube tip suspected just below the GE junction level. However, this region is underpenetrated an d distal aspect is not well visualized. 2. Otherwise, similar exam with suspected pulmonary vascular congestion. Small left pleural effusion with adjacent atelectasis and/or consolidation. [facility], Workstation: [facility], 10/10/2024 10:18 AM
[2024-10-10] MEDS: FUROSEMIDE 10 MG/ML 2 ML VIAL IV ONE (10:36)
--- NOTE | 2024-10-10 11:09 | P.PN ---
Subjective Progress Note Date: 10/10/24 History of present illness; Patient is a 83-year-old female with history of hypothyroidism, hearing loss, G ERD, DVT, blood disorder factor V Leiden deficiency, SLE who presents with dyspnea, and abdominal pain and distention. Patient states that over the last 3 to 4 days she has had increasing generalized abdominal pain and distention. She states that she has not had a bowel movement since Wednesday and has not passed gas since around the same time. She states she tried Tums and Benefiber this morning without improvement. No previous similar incidents. She states she does have a history of hysterectomy, appendectomy and cholecystectomy. She also states she has history of IBS. Also during this time patient states she has shortness of breath which is worse with deep inspiration. She denies orthopnea, chest pain, or palpitations. She also states that deep inspiration makes her have dry cough. She reports absence of fever, nausea, vomiting, weakness, dizziness or dysuria. ER FINDINGS: Labs significant for WBC 15.9, hemoglobin 8.8, sodium 128, potassium 5.2, chloride 93, BUN 41, creatinine 0.94, glucose 100, magnesium 2.4, AST 54, ALT 49, troponin <0.012, proBNP 2260 EKG independently interpreted showed sinus rhythm heart rate of 88, QTc 428, no ST segment elevation or depression seen, no T-wave inversions seen. Chest x-ray done independently interpreted showed cardiomegaly with pulmonary vascular congestion. Small left pleural effusion with adjacent atelectasis and/or consolidation. CT abdomen pelvis independently interpreted with findings of small left and minimal right pleural effusion, infiltrate at the left base, small to moderate pericardial effusion, air-filled and fluid-filled loops of colon correlate for ileus. 10/10/2024patient seen and examined at bedside. No acute events overnight. No chest pain or shortness of breath. Nausea improving. No complaints of abdominal pain at this time. Having bowel movements and passing gas. REVIEW OF SYSTEMS: Pertinent positives and negatives noted in HPI. PHYSICAL EXAMINATION: VITAL SIGNS: Reviewed GENERAL: Resting comfortably in bed. CARDIOVASCULAR: S1 and S2 present. No murmurs, rubs, or gallops. PULMONARY: Chest is clear to auscultation, no wheezing, rhonchi, or crackles. ABDOMEN: Soft, nontender. Distended. No palpable organomegaly. NEUROLOGICAL: Alert and oriented x 3. Gross neurological examination with no apparent focal deficits. EXTREMITIES: Trace pedal edema. SKIN: Chronic venous stasis dermatitis of left leg. Today significant findings: LabsWBC 14.4, hemoglobin 9.1, sodium 134, BUN 36, glucose 67, calcium 7.9, magnesium 2.4, AST 62, ALT 60, UA negative No new imaging ASSESSMENT AND PLAN: In summary, Patient is a 83-year-old female with history of hypothyroidism, hearing loss, GERD, DVT, blood disorder factor V Leiden deficiency who presents with dyspnea, and abdominal pain and distention. #Acute congestive heart failure #Hypervolemic hyponatremia, resolved #Mild hyperkalemia, resolved #Pericardial effusion without tamponade #Acute hypoxic respiratory failure -Last known echo EF 55 to 60% in 11/2019 -Chest x-ray shows cardiomegaly with pulmonary vascular congestion, small left pleural effusion CT abdomen pelvis with findings of small to moderate pericardial effusion -proBNP 2260 -Initial weight 56.6 kg, daily weights -When beginning diet, low sodium diet <2g daily, strict I/O, < 2L of total volume intake daily -Supplemental O2 as needed Echocardiogram ordered -Cardiac monitoring -Monitor BMP tomorrow and this evening -IV Lasix 20 mg once -Cardiology consulted #Small bowel obstruction versus ileus #Leukocytosis likely due to above #Transaminitis - CT AP w/ contrast findings of air-filled and fluid-filled loops of colon NG tube placement w/ intermittent suction placed Continue ondansetron 4 mg IVP every 8 hour as needed Continue pantoprazole 40 mg IV daily - Continue Zosyn 3.375 g every 8 hours - Stop amitriptyline - NPO for now we will transition to liquid diet when appropriate Surgery consulted Chronic Medical Conditions: hypothyroidism hearing loss GERD History of DVT factor V Leiden deficiency SLE -Resume home medications, hold Xarelto and amitriptyline DVT ppx: Subcu heparin 5000 units twice daily Code status: Full code F: N.p.o. E: Replete as needed N: N.p.o. A: Ambulatory with intermittent cane use Anticipated discharge time and place: Pending clinical course Ferny Holley MD Internal Medicine Resident, PGY1 Dictation was produced using [employer] dictation software. Please excuse any grammatical, word or spelling errors. I have seen and evaluated the patient today. Discussed with the resident and agree with the residents finding and plan as documented in the resident's note. Changes highlighted in blue font. Objective - Vital Signs Vital signs: Vital Signs Temp 97.5 F L 10/09/24 10:33 Pulse 105 H 10/10/24 06:23 Resp 19 10/10/24 06:23 BP 131/61 10/10/24 06:23 Pulse Ox 91 L 10/10/24 06:23 FiO2 Intake & Output 10/09/24 10/10/24 10/10/24 18:59 06:59 18:59 Weight 56.699 kg - Labs CBC & Chem 7: 10/10/24 05:24 10/10/24 05:24 Labs: Abnormal Lab Results - Last 24 Hours (Table) 10/09/24 10/09/24 10/09/24 Range/Units 11:05 11:05 20:15 WBC 15.90 H (4.50-10.00) 10*3/uL RBC 3.17 L (4.10-5.20) 10*6/uL Hgb 8.8 L (12.0-15.0) g/dL Hct 26.9 L (37.2-46.3) % Plt Count (140-440) 10*3/uL MPV 9.4 L (9.5-12.2) fL Immature Gran # 0.12 H (0.00-0.04) 10*3/uL Neutrophils # 14.56 H (1.80-7.70) 10*3/uL Lymphocytes # 0.35 L (0.90-5.00) 10*3/uL Monocytes # (0.20-1.00) 10*3/uL Eosinophils # 0.01 L (0.04-0.35) 10*3/uL Sodium 128 L 131 L (137-145) mmol/L Potassium 5.2 H (3.5-5.1) mmol/L Chloride 93 L 96 L (98-107) mmol/L BUN 41 H 38 H (7-17) mg/dL Glucose 100 H 102 H (74-99) mg/dL Calcium 8.3 L (8.4-10.2) mg/dL Magnesium 2.4 H (1.6-2.3) mg/dL AST 54 H (14-36) U/L ALT 49 H (4-34) U/L Total Protein 6.0 L (6.3-8.2) g/dL Albumin (3.5-5.0) g/dL 10/10/24 10/10/24 Range/Units 05:24 05:24 WBC 14.44 H (4.50-10.00) 10*3/uL RBC 3.32 L (4.10-5.20) 10*6/uL Hgb 9.1 L (12.0-15.0) g/dL Hct 28.4 L (37.2-46.3) % Plt Count 460 H (140-440) 10*3/uL MPV (9.5-12.2) fL Immature Gran # 0.09 H (0.00-0.04) 10*3/uL Neutrophils # 12.61 H (1.80-7.70) 10*3/uL Lymphocytes # 0.57 L (0.90-5.00) 10*3/uL Monocytes # 1.05 H (0.20-1.00) 10*3/uL Eosinophils # (0.04-0.35) 10*3/uL Sodium 134 L (137-145) mmol/L Potassium (3.5-5.1) mmol/L Chloride (98-107) mmol/L BUN 36 H (7-17) mg/dL Glucose 67 L (74-99) mg/dL Calcium 7.9 L (8.4-10.2) mg/dL Magnesium 2.4 H (1.6-2.3) mg/dL AST 62 H (14-36) U/L ALT 60 H (4-34) U/L Total Protein 5.8 L (6.3-8.2) g/dL Albumin 3.4 L (3.5-5.0) g/dL
--- NOTE | 2024-10-10 11:26 | P.PN ---
Subjective Progress Note Date: 10/10/24 SURGICAL PROGRESS NOTE CHIEF COMPLAINT: Abdominal distention HISTORY OF PRESENT ILLNESS: Patient did report ports loose bowel movement today. Abdomen remains distended. Afebrile. WBC is down from 15-14. Sodium 134 potassium 4.3 creatinine 0.77 and magnesium 2.4 unfortunately NG tube was not placed yesterday as ordered. PHYSICAL EXAM: VITAL SIGNS: Reviewed. GENERAL: Well-developed in no acute distress. HEENT: No sclera icterus. Extraocular movements grossly intact. Moist buccal mucosa. Head is atraumatic, normocephalic. ABDOMEN: Distended. Slightly softer than yesterday. Nontender. NEUROLOGIC: Alert and oriented. Cranial nerves II through XII grossly intact. ASSESSMENT: 1. Abdominal distention with ileus PLAN: - NG tube placed for decompression discussed with nursing staff - Keep patient n.p.o. - Continue antibiotics - Continue to monitor - Continue to hold Xarelto Physician Finance Vice President note has been reviewed by physician. Signing provider agrees with the documented findings, assessment, and plan of care. Objective - Vital Signs Vital signs: Vital Signs Temp 97.5 F L 10/09/24 10:33 Pulse 93 10/10/24 10:58 Resp 18 10/10/24 10:58 BP 111/76 10/10/24 10:58 Pulse Ox 97 10/10/24 10:58 FiO2 Intake & Output 10/09/24 10/10/24 10/10/24 18:59 06:59 18:59 Weight 56.699 kg - Labs CBC & Chem 7: 10/10/24 05:24 10/10/24 05:24 Labs: Abnormal Lab Results - Last 24 Hours (Table) 10/09/24 10/09/24 10/09/24 Range/Units 11:05 11:05 20:15 WBC 15.90 H (4.50-10.00) 10*3/uL RBC 3.17 L (4.10-5.20) 10*6/uL Hgb 8.8 L (12.0-15.0) g/dL Hct 26.9 L (37.2-46.3) % Plt Count (140-440) 10*3/uL MPV 9.4 L (9.5-12.2) fL Immature Gran # 0.12 H (0.00-0.04) 10*3/uL Neutrophils # 14.56 H (1.80-7.70) 10*3/uL Lymphocytes # 0.35 L (0.90-5.00) 10*3/uL Monocytes # (0.20-1.00) 10*3/uL Eosinophils # 0.01 L (0.04-0.35) 10*3/uL Sodium 128 L 131 L (137-145) mmol/L Potassium 5.2 H (3.5-5.1) mmol/L Chloride 93 L 96 L (98-107) mmol/L BUN 41 H 38 H (7-17) mg/dL Glucose 100 H 102 H (74-99) mg/dL Calcium 8.3 L (8.4-10.2) mg/dL Magnesium 2.4 H (1.6-2.3) mg/dL AST 54 H (14-36) U/L ALT 49 H (4-34) U/L Total Protein 6.0 L (6.3-8.2) g/dL Albumin (3.5-5.0) g/dL 10/10/24 10/10/24 Range/Units 05:24 05:24 WBC 14.44 H (4.50-10.00) 10*3/uL RBC 3.32 L (4.10-5.20) 10*6/uL Hgb 9.1 L (12.0-15.0) g/dL Hct 28.4 L (37.2-46.3) % Plt Count 460 H (140-440) 10*3/uL MPV (9.5-12.2) fL Immature Gran # 0.09 H (0.00-0.04) 10*3/uL Neutrophils # 12.61 H (1.80-7.70) 10*3/uL Lymphocytes # 0.57 L (0.90-5.00) 10*3/uL Monocytes # 1.05 H (0.20-1.00) 10*3/uL Eosinophils # (0.04-0.35) 10*3/uL Sodium 134 L (137-145) mmol/L Potassium (3.5-5.1) mmol/L Chloride (98-107) mmol/L BUN 36 H (7-17) mg/dL Glucose 67 L (74-99) mg/dL Calcium 7.9 L (8.4-10.2) mg/dL Magnesium 2.4 H (1.6-2.3) mg/dL AST 62 H (14-36) U/L ALT 60 H (4-34) U/L Total Protein 5.8 L (6.3-8.2) g/dL Albumin 3.4 L (3.5-5.0) g/dL
--- NOTE | 2024-10-10 12:52 | P.CRDCN ---
History of Present Illness History of present illness: HISTORY OF PRESENT ILLNESS: This is a 83-year-old female with a past medical history significant for DVT and hypothyroidism. Patient does not follow with a medical advisor. We have been as ked to see the patient in consultation for congestive heart failure. Patient examined this morning in the emergency room. Patient presented to the hospital for chief complaint of abdominal pain. She reports that her abdomen was getting more more distended at home. She reports nausea but no vomiting. Patient was found to have bowel obstruction and is being followed by general surgery. Patient was given a one-time dose of IV Lasix per primary medicine. She denies any chest pain or pressure. She denies any shortness of breath. DIAGNOSTICS: - EKG reveals sinus mechanism with no signs of acute ischemia. - Chest xray cardiomegaly with pulmonary vascular congestion. Small left pleural effusion with adjacent atelectasis or consolidation. - CT abdomen and pelvis small left and minimal right pleural effusion. Infiltrate at left lung base may be related to compressive atelectasis. Small to moderate pericardial effusion. - Current home cardiac medications include Xarelto 10 mg daily, nifedipine 60 mg twice a day. - Most recent echocardiogram obtained in November 2019 revealed ejection fraction 55 to 60%, moderate concentric LVH, mild to moderate MR, mild to moderate TR, mild to moderate pulmonary pretension - Cardiac catheterization history: Patient denies REVIEW OF SYSTEMS: At the time of my exam: CONSTITUTIONAL: Denies fever or chills. HEENT: Denies blurred vision, vision changes, or eye pain. Denies hemoptysis CARDIOVASCULAR: Denies chest pain. Denies orthopnea. Denies PND. Denies palpitations RESPIRATORY: Denies shortness of breath. GASTROINTESTINAL: Denies abdominal pain. Denies nausea or vomiting. HEMATOLOGIC: Denies bleeding disorders. GENITOURINARY: Denies any blood in urine. SKIN: Denies pruitis. Denies rash. PHYSICAL EXAM: VITAL SIGNS: Reviewed. GENERAL: Well-developed in no acute distress. HEENT: Head is normocephalic. Pupils are equal, round. Sclerae anicteric. Mucous membranes of the mouth are moist. Neck supple. No JVD or thyromegaly LUNGS: Respirations even and unlabored. Lungs essentially clear to auscultation bilaterally. HEART: Regular rate and rhythm. S1 and S2 heard. ABDOMEN: Soft. Distended. Tender. EXTREMITIES: Normal range of motion. No clubbing or cyanosis. Peripheral pulses intact. No lower extremity edema NEUROLOGIC: Awake and alert. Oriented x 3. ASSESSMENT: Abdominal pain Small bowel obstruction Mild acute congestive heart failure with preserved EF 55 to 60% in 2019, repeat echo pending Small to moderate pericardial effusion Hypertension History of DVT Hypothyroidism PLAN: Xarelto to be held per general surgery Obtain 2D echo to assess cardiac structure and function Patient is currently euvolemic upon examination and does not require any further IV diuretics If patient requires surgical intervention, there are no absolute contraindications for patient to proceed from a cardiac standpoint Further recommendations pending patient course Nurse practitioner note has been reviewed by physician. Signing provider agrees with the documented findings, assessment, and plan of care documented by CASTING MACHINE SET UP OPERATOR as a scribe. Past Medical History Past Medical History: Blood Disorder, Deep Vein Thrombosis (DVT), Eye Disorder, GERD/Reflux, GI Bleed, Hearing Disorder / Deafness, Osteoarthritis (OA), Skin Disorder, Thyroid Disorder Additional Past Medical History / Comment(s): Factor V Leiden, hx. headaches, hx. Hiatal Hernia, gastric ulcer, belching. worsening GERD., BILAT CATARACTS, Lupus. fell 3 weeks ago, thinks she tore her left rotator cuff. shingles 01/22/20 History of Any Multi-Drug Resistant Organisms: None Reported Past Surgical History: Appendectomy, Cholecystectomy, Ear Surgery, Hysterectomy, Joint Replacement, Tonsillectomy Additional Past Surgical History / Comment(s): carpal tunnel surgery rotator cuff surgery bilateral and left twice, left knee replacement, bilat cataract surgery, Saulo Fundoplasty, EGD, REVISION OF SAULO FUNDOPLASTY Past Anesthesia/Blood Transfusion Reactions: No Reported Reaction Additional Past Anesthesia/Blood Transfusion Reaction / Comment(s): no complications with prior blood transfusions Past Psychological History: No Psychological Hx Reported Smoking Status: Never smoker Past Alcohol Use History: None Reported Past Drug Use History: None Reported - Past Family History Father Family Medical History: CVA/TIA Additional Family Medical History / Comment(s): alcoholism Sister(s) Family Medical History: Diabetes Mellitus Additional Family Medical History / Comment(s): schleroderma Brother(s) Family Medical History: Diabetes Mellitus Mother Family Medical History: No Reported History Additional Family Medical History / Comment(s): heart problems Medications and Allergies Home Medications Medication Instructions Recorded Confirmed Type Biotin 10,000 mcg PO DAILY 01/22/20 10/09/24 History Ferrous Sulfate [Iron] 325 mg PO DAILY 01/22/20 10/09/24 History Hydroxychloroquine Sulfate 200 mg PO BID 01/22/20 10/09/24 History [Plaquenil] Magnesium 250 mg PO HS 01/22/20 10/09/24 History NIFEdipine [NIFEdipine ER 60 mg PO BID 01/22/20 10/09/24 History (Osmotic)] Amitriptyline HCl [Elavil] 50 mg PO HS 04/30/20 10/09/24 History Cholecalciferol [Vitamin D3 (125 125 mcg PO DAILY 10/09/24 10/09/24 History Mcg = 5000 Iu)] L.acidoph,Paracasei, B.lactis 1 cap PO DAILY 10/09/24 10/09/24 History [Probiotic] Levothyroxine Sodium [Synthroid] 88 mcg PO DAILY 10/09/24 10/09/24 History Psyllium Husk [Fiber Capsule] 0.4 gm PO DAILY 10/09/24 10/09/24 History Rivaroxaban [Xarelto] 10 mg PO DAILY 10/09/24 10/09/24 History Allergies Allergy/AdvReac Type Severity Reaction Status Date / Time azithromycin [From Zithromax] AdvReac Nausea & Verified 10/09/24 14:25 Vomiting morphine AdvReac Nausea & Verified 10/09/24 10:37 Vomiting Physical Exam Vitals: Vital Signs Temp Pulse Resp BP Pulse Ox 10/10/24 08:17 94 16 133/72 95 10/10/24 08:14 92 L 10/10/24 06:23 105 H 19 131/61 91 L 10/10/24 03:33 94 18 96 10/10/24 02:00 94 18 126/74 97 10/10/24 01:00 90 18 130/70 97 10/10/24 00:00 95 18 135/68 98 10/09/24 23:00 98 18 132/67 10/09/24 22:00 102 H 18 125/63 97 10/09/24 21:00 90 18 129/60 96 10/09/24 20:00 97 18 122/62 96 10/09/24 19:00 100 18 124/64 95 10/09/24 18:00 100 18 124/62 96 10/09/24 17:00 102 H 18 126/62 96 10/09/24 16:00 92 18 123/64 94 L 10/09/24 14:56 90 20 122/66 95 10/09/24 13:59 90 20 118/64 95 10/09/24 12:53 87 20 120/62 96 10/09/24 11:07 96 10/09/24 11:05 88 L 10/09/24 10:33 97.5 F L 95 24 113/61 87 L Results 10/10/24 05:24 10/10/24 05:24 Cardiac Enzymes 10/09/24 10/09/24 10/10/24 Range/Units 11:05 11:05 05:24 AST 54 H 62 H (14-36) U/L Troponin I <0.012 (0.000-0.034) ng/mL Coagulation 10/09/24 Range/Units 11:05 PT 11.1 (10.0-12.5) sec APTT 24.6 (22.0-30.0) sec CBC 10/09/24 10/10/24 Range/Units 11:05 05:24 WBC 15.90 H 14.44 H (4.50-10.00) 10*3/uL RBC 3.17 L 3.32 L (4.10-5.20) 10*6/uL Hgb 8.8 L 9.1 L (12.0-15.0) g/dL Hct 26.9 L 28.4 L (37.2-46.3) % Plt Count 402 460 H (140-440) 10*3/uL Comprehensive Metabolic Panel 10/09/24 10/09/24 10/10/24 Range/Units 11:05 20:15 05:24 Sodium 128 L 131 L 134 L (137-145) mmol/L Potassium 5.2 H 4.5 4.3 (3.5-5.1) mmol/L Chloride 93 L 96 L 98 (98-107) mmol/L Carbon Dioxide 22 22 23 (22-30) mmol/L BUN 41 H 38 H 36 H (7-17) mg/dL Creatinine 0.94 0.84 0.77 (0.52-1.04) mg/dL Glucose 100 H 102 H 67 L (74-99) mg/dL Calcium 8.4 8.3 L 7.9 L (8.4-10.2) mg/dL AST 54 H 62 H (14-36) U/L ALT 49 H 60 H (4-34) U/L Alkaline Phosphatase 102 98 (38-126) U/L Total Protein 6.0 L 5.8 L (6.3-8.2) g/dL Albumin 3.5 3.4 L (3.5-5.0) g/dL Current Medications Generic Name Dose Route Start Last Admin Trade Name Freq PRN Reason Stop Dose Admin Heparin Sodium (Porcine) 5,000 unit 10/09/24 21:00 10/09/24 23:21 Heparin Sodium,Porcine 5,000 Unit/Ml 1 Ml Vial SQ 5,000 unit Q12HR NICKI Administration Hydromorphone HCl 0.5 mg 10/09/24 13:28 Hydromorphone 0.5 Mg/0.5 Ml Syringe IVP Q3HR PRN Moderate Pain (Scale 4 to 6) Hydroxychloroquine Sulfate 200 mg 10/09/24 21:00 10/09/24 23:19 Hydroxychloroquine Sulfate 200 Mg Tab PO 200 mg BID NICKI Administration Piperacillin Sod/Tazobactam 100 mls @ 25 mls/hr 10/09/24 16:00 10/10/24 08:25 Sod 3.375 gm/ Sodium Chloride IVPB 25 mls/hr Q8HR NICKI Administration Protocol Levothyroxine Sodium 88 mcg 10/10/24 09:00 Levothyroxine 88 Mcg Tab PO DAILY NICKI Naloxone HCl 0.2 mg 10/09/24 13:28 Naloxone 0.4 Mg/Ml 1 Ml Vial IV Q2M PRN Opioid Reversal Nifedipine 60 mg 10/09/24 21:00 10/09/24 23:20 Nifedipine Xl 60 Mg Tab.Er.24 PO 60 mg BID NICKI Administration Ondansetron HCl 4 mg 10/09/24 13:28 Ondansetron 4 Mg/2 Ml Vial IVP Q8HR PRN Nausea And Vomiting Pantoprazole Sodium 40 mg 10/10/24 09:00 10/10/24 08:22 Pantoprazole 40 Mg/10 Ml Vial IVP 40 mg DAILY NICKI Administration 10/10/24 05:24 10/10/24 05:24
--- NOTE | 2024-10-10 17:58 | XR ---
EXAMINATION TYPE: XR chest 1V portable DATE OF EXAM: 10/10/2024 5:52 PM COMPARISON: Chest 10/10/2024. CLINICAL INDICATION: Female, 83 years old with history of NG tube placement; [facility] TECHNIQUE: XR chest 1V portable Frontal view of the chest. FINDINGS: Lungs/Pleura: Small moderate partially layering left pleural effusion with adjacent left lower lobe c ompressive atelectasis. Trace right pleural effusion. Additionally, there are patchy infiltrative opa cities in the left lung which are indeterminate. Heart/mediastinum: Cardiomegaly. Musculoskeletal: No acute osseous pathology. Other findings: Enteric tube visualized with distal sidehole near the GE junction and tip within the proximal stomach. IMPRESSION: 1. Cardiomegaly, moderate left and small right pleural effusions suggestive of CHF/pulmonary edema. Additionally, indeterminate patchy infiltrative opacities in the left lung. 2. Enteric tube with distal sidehole near the GE junction, not significantly changed from prior stud y. Consider slightly advancing. [facility], , 10/10/2024 5:55 PM
--- NOTE | 2024-10-10 18:37 | XR ---
EXAMINATION TYPE: XR chest 1V portable DATE OF EXAM: 10/10/2024 6:33 PM COMPARISON: Same-day chest radiograph. CLINICAL INDICATION: Female, 83 years old with history of NG tube; [facility] TECHNIQUE: XR chest 1V portable Frontal view of the chest. FINDINGS: Lungs/Pleura: Moderate left and trace right pleural effusions, not significantly changed and most rec ent prior study. Similar patchy left lung opacities. No pneumothorax. Heart/mediastinum: Cardiomegaly. Musculoskeletal: No acute osseous pathology. Other findings: None Lines/Tubes: Enteric tube now in appropriate position in the distal sidehole overlying the expected gastric lumen. IMPRESSION: Enteric tube now in appropriate positioning. [facility], , 10/10/2024 6:35 PM
[2024-10-10 21:13] LABS: Glucose,Whole Blood 69 mg/dL (70-110)
[2024-10-10] MEDS ORDERED: DEXTROSE 50% SYRINGE 50 ML IVP PRN (21:17)
[2024-10-10] MEDS: DEXTROSE 50% SYRINGE 50 ML IVP PRN (21:23)
[2024-10-10 21:31] LABS: Glucose,Whole Blood 116 mg/dL (70-110)
[2024-10-10] MEDS: BENZOCAINE SPRAY 1 EACH MUCOUS MEM PRN (21:53)
--- NOTE | 2024-10-11 00:47 | XR ---
EXAM: XR Chest, 1 View CLINICAL HISTORY: ITS.REASON XR Reason: NGT TECHNIQUE: Frontal view of the chest. COMPARISON: No relevant prior studies available. FINDINGS: Lungs: Unremarkable. No consolidation. Pleural space: Moderate left pleural effusion. No pneumothorax. Heart: Unremarkable. No cardiomegaly. Mediastinum: Unremarkable. Bones/joints: Unremarkable. Tubes, lines and devices: Feeding tube terminates in the stomach. IMPRESSION: 1. Feeding tube terminates in the stomach. 2. Moderate left pleural effusion.
[2024-10-11 03:35] LABS: Glucose,Whole Blood 72 mg/dL (70-110)
[2024-10-11 05:57] LABS: Glucose,Whole Blood 76 mg/dL (70-110)
[2024-10-11 07:05] LABS: Basophils # (A) 0.04 10*3/uL (0.00-0.10); Basophils % (A) 0.3 %; Eosinophils % (A) 1.3 %; HGB 9.3 g/dL (12.0-15.0); Lymphocytes # (A) 0.65 10*3/uL (0.90-5.00); Lymphocytes % (A) 4.3 %; Mean Platelet Volume 9.4 fL (9.5-12.2); Monocytes # (A) 1.14 10*3/uL (0.20-1.00); Monocytes % (A) 7.5 %; Neutrophils % (A) 86.1 %; Platelet Count 466 10*3/uL (140-440); RBC 3.45 10*6/uL (4.10-5.20); RDW 15.5 % (11.5-14.5); WBC 15.11 10*3/uL (4.50-10.00)
[2024-10-11 07:29] LABS: ALT 71 U/L (4-34); AST 73 U/L (14-36); African American GFR (CKD) >90 (>60 ml/min/1.73 sqM); Albumin 3.5 g/dL (3.5-5.0); Alkaline Phosphatase 104 U/L (38-126); Anion Gap 13 mmol/L; Blood Urea Nitrogen 27 mg/dL (7-17); Calcium 8.3 mg/dL (8.4-10.2); Carbon Dioxide 24 mmol/L (22-30); Chloride 100 mmol/L (98-107); Glucose 68 mg/dL (74-99); Non-African American GFR(CKD) 85 (>60 ml/min/1.73 sqM); Sodium 137 mmol/L (137-145); Total Bilirubin 0.7 mg/dL (0.2-1.3)
--- NOTE | 2024-10-11 10:34 | P.PN ---
Subjective HISTORY OF PRESENT ILLNESS: This is a 83-year-old female with a past medical history significant for DVT and hypothyroidism. Patient does not follow with a stitch separator. We have been asked to see the patient in consultation for congestive heart failure. Patient examined this morning in the emergency room. Patient presented to the hospital for chief complaint of abdominal pain. She reports that her abdomen was getting more more distended at home. She reports nausea but no vomiting. Patient was found to have bowel obstruction and is being followed by general surgery. Patient was given a one-time dose of IV Lasix per primary medicine. She denies any chest pain or pressure. She denies any shortness of breath. DIAGNOSTICS: - EKG reveals sinus mechanism with no signs of acute ischemia. - Chest xray cardiomegaly with pulmonary vascular congestion. Small left pleural effusion with adjacent atelectasis or consolidation. - CT abdomen and pelvis small left and minimal right pleural effusion. Infiltrate at left lung base may be related to compressive atelectasis. Small to moderate pericardial effusion. - Current home cardiac medications include Xarelto 10 mg daily, nifedipine 60 mg twice a day. - Most recent echocardiogram obtained in November 2019 revealed ejection fraction 55 to 60%, moderate concentric LVH, mild to moderate MR, mild to moderate TR, mild to moderate pulmonary pretension - Cardiac catheterization history: Patient denies 10/11/2024 Patient examined this morning at the bedside. Patient currently denies chest pain or pressure. She denies shortness of breath. She remains n.p.o. with NG tube this morning. 2D echo remains pending. PHYSICAL EXAM: VITAL SIGNS: Reviewed. GENERAL: Well-developed in no acute distress. HEENT: Head is normocephalic. Pupils are equal, round. Sclerae anicteric. Mucous membranes of the mouth are moist. Neck supple. No JVD or thyromegaly LUNGS: Respirations even and unlabored. Lungs essentially clear to auscultation bilaterally. HEART: Regular rate and rhythm. S1 and S2 heard. ABDOMEN: Soft. Nontender. EXTREMITIES: Normal range of motion. No clubbing or cyanosis. Peripheral pulses intact. No lower extremity edema NEUROLOGIC: Awake and alert. Oriented x 3. ASSESSMENT: Abdominal pain Small bowel obstruction Mild acute congestive heart failure with preserved EF 55 to 60% in 2019, repeat echo pending Small to moderate pericardial effusion Hypertension History of DVT Hypothyroidism PLAN: Xarelto to be held per general surgery Obtain 2D echo to assess cardiac structure and function Patient is currently euvolemic upon examination and does not require any further IV diuretics If patient requires surgical intervention, there are no absolute contraindicat ions for patient to proceed from a cardiac standpoint Further recommendations pending patient course Nurse practitioner note has been reviewed by physician. Signing provider agrees with the documented findings, assessment, and plan of care documented by MOBILE UI/UX DESIGNER as a scribe. Objective - Vital Signs Vital signs: Vital Signs Temp 98.0 F 10/11/24 03:33 Pulse 90 10/11/24 03:33 Resp 19 10/11/24 03:33 BP 145/70 10/11/24 03:33 Pulse Ox 96 10/11/24 03:33 FiO2 Intake & Output 10/10/24 10/11/24 10/11/24 18:59 06:59 18:59 Output Total 400 Balance -400 Weight 55.2 kg Output: Urine 400 Other: # Voids 1 - Labs CBC & Chem 7: 10/11/24 06:20 10/11/24 06:20 Labs: Abnormal Lab Results - Last 24 Hours (Table) 10/10/24 10/10/24 10/11/24 Range/Units 21:11 21:30 06:20 WBC 15.11 H (4.50-10.00) 10*3/uL RBC 3.45 L (4.10-5.20) 10*6/uL Hgb 9.3 L (12.0-15.0) g/dL Hct 30.0 L (37.2-46.3) % MCHC 31.0 L (32.0-37.0) g/dL Plt Count 466 H (140-440) 10*3/uL MPV 9.4 L (9.5-12.2) fL Immature Gran # 0.08 H (0.00-0.04) 10*3/uL Neutrophils # 13.00 H (1.80-7.70) 10*3/uL Lymphocytes # 0.65 L (0.90-5.00) 10*3/uL Monocytes # 1.14 H (0.20-1.00) 10*3/uL BUN (7-17) mg/dL Glucose (74-99) mg/dL POC Glucose (mg/dL) 69 L 116 H (70-110) mg/dL Calcium (8.4-10.2) mg/dL AST (14-36) U/L ALT (4-34) U/L Total Protein (6.3-8.2) g/dL 10/11/24 Range/Units 06:20 WBC (4.50-10.00) 10*3/uL RBC (4.10-5.20) 10*6/uL Hgb (12.0-15.0) g/dL Hct (37.2-46.3) % MCHC (32.0-37.0) g/dL Plt Count (140-440) 10*3/uL MPV (9.5-12.2) fL Immature Gran # (0.00-0.04) 10*3/uL Neutrophils # (1.80-7.70) 10*3/uL Lymphocytes # (0.90-5.00) 10*3/uL Monocytes # (0.20-1.00) 10*3/uL BUN 27 H (7-17) mg/dL Glucose 68 L (74-99) mg/dL POC Glucose (mg/dL) (70-110) mg/dL Calcium 8.3 L (8.4-10.2) mg/dL AST 73 H (14-36) U/L ALT 71 H (4-34) U/L Total Protein 6.0 L (6.3-8.2) g/dL Microbiology - Last 24 Hours (Table) 10/09/24 13:15 Blood Culture - Preliminary Blood
--- NOTE | 2024-10-11 10:54 | P.PN ---
Subjective Progress Note Date: 10/11/24 SURGICAL PROGRESS NOTE CHIEF COMPLAINT: Abdominal distention HISTORY OF PRESENT ILLNESS: Patient reports she is feeling better. Denies any abdominal pain. She is having flatus. She did have a bowel movement yesterday. Afebrile. Nursing staff reporting patient having sinus tachycardia. No output through NG tube. WBC up from 14-15. Chest x-ray moderate left pleural effusion Patient seen and examined with Dr. Amado PHYSICAL EXAM: VITAL SIGNS: Reviewed. GENERAL: Well-developed in no acute distress. HEENT: No sclera icterus. Extraocular movements grossly intact. Moist buccal mucosa. Head is atraumatic, normocephalic. ABDOMEN: Soft. Nondistended. Nontender. NEUROLOGIC: Alert and oriented. Cranial nerves II through XII grossly intact. ASSESSMENT: 1. Resolving ileus PLAN: -Discontinue NG tube -Start full liquid diet -Okay to resume Xarelto Physician Direct Mail Coordinator note has been reviewed by physician. Signing provider agrees with the documented findings, assessment, and plan of care. Objective - Vital Signs Vital signs: Vital Signs Temp 98.0 F 10/11/24 03:33 Pulse 90 10/11/24 03:33 Resp 19 10/11/24 03:33 BP 145/70 10/11/24 03:33 Pulse Ox 96 10/11/24 03:33 FiO2 Intake & Output 10/10/24 10/11/24 10/11/24 18:59 06:59 18:59 Output Total 400 Balance -400 Weight 55.2 kg Output: Urine 400 Other: # Voids 1 - Labs CBC & Chem 7: 10/11/24 06:20 10/11/24 06:20 Labs: Abnormal Lab Results - Last 24 Hours (Table) 10/10/24 10/10/24 10/11/24 Range/Units 21:11 21:30 06:20 WBC 15.11 H (4.50-10.00) 10*3/uL RBC 3.45 L (4.10-5.20) 10*6/uL Hgb 9.3 L (12.0-15.0) g/dL Hct 30.0 L (37.2-46.3) % MCHC 31.0 L (32.0-37.0) g/dL Plt Count 466 H (140-440) 10*3/uL MPV 9.4 L (9.5-12.2) fL Immature Gran # 0.08 H (0.00-0.04) 10*3/uL Neutrophils # 13.00 H (1.80-7.70) 10*3/uL Lymphocytes # 0.65 L (0.90-5.00) 10*3/uL Monocytes # 1.14 H (0.20-1.00) 10*3/uL BUN (7-17) mg/dL Glucose (74-99) mg/dL POC Glucose (mg/dL) 69 L 116 H (70-110) mg/dL Calcium (8.4-10.2) mg/dL AST (14-36) U/L ALT (4-34) U/L Total Protein (6.3-8.2) g/dL 10/11/24 Range/Units 06:20 WBC (4.50-10.00) 10*3/uL RBC (4.10-5.20) 10*6/uL Hgb (12.0-15.0) g/dL Hct (37.2-46.3) % MCHC (32.0-37.0) g/dL Plt Count (140-440) 10*3/uL MPV (9.5-12.2) fL Immature Gran # (0.00-0.04) 10*3/uL Neutrophils # (1.80-7.70) 10*3/uL Lymphocytes # (0.90-5.00) 10*3/uL Monocytes # (0.20-1.00) 10*3/uL BUN 27 H (7-17) mg/dL Glucose 68 L (74-99) mg/dL POC Glucose (mg/dL) (70-110) mg/dL Calcium 8.3 L (8.4-10.2) mg/dL AST 73 H (14-36) U/L ALT 71 H (4-34) U/L Total Protein 6.0 L (6.3-8.2) g/dL Microbiology - Last 24 Hours (Table) 10/09/24 13:15 Blood Culture - Preliminary Blood
[2024-10-11 11:34] LABS: Glucose,Whole Blood 72 mg/dL (70-110)
--- NOTE | 2024-10-11 12:12 | P.PN ---
Subjective Progress Note Date: 10/11/24 History of present illness; Patient is a 83-year-old female with history of hypothyroidism, hearing loss, G ERD, DVT, blood disorder factor V Leiden deficiency, SLE who presents with dyspnea, and abdominal pain and distention. Patient states that over the last 3 to 4 days she has had increasing generalized abdominal pain and distention. She states that she has not had a bowel movement since Wednesday and has not passed gas since around the same time. She states she tried Tums and Benefiber this morning without improvement. No previous similar incidents. She states she does have a history of hysterectomy, appendectomy and cholecystectomy. She also states she has history of IBS. Also during this time patient states she has shortness of breath which is worse with deep inspiration. She denies orthopnea, chest pain, or palpitations. She also states that deep inspiration makes her have dry cough. She reports absence of fever, nausea, vomiting, weakness, dizziness or dysuria. ER FINDINGS: Labs significant for WBC 15.9, hemoglobin 8.8, sodium 128, potassium 5.2, chloride 93, BUN 41, creatinine 0.94, glucose 100, magnesium 2.4, AST 54, ALT 49, troponin <0.012, proBNP 2260 EKG independently interpreted showed sinus rhythm heart rate of 88, QTc 428, no ST segment elevation or depression seen, no T-wave inversions seen. Chest x-ray done independently interpreted showed cardiomegaly with pulmonary vascular congestion. Small left pleural effusion with adjacent atelectasis and/or consolidation. CT abdomen pelvis independently interpreted with findings of small left and minimal right pleural effusion, infiltrate at the left base, small to moderate pericardial effusion, air-filled and fluid-filled loops of colon correlate for ileus. 10/10/2024patient seen and examined at bedside. No acute events overnight. No chest pain or shortness of breath. Nausea improving. No complaints of abdominal pain at this time. Having bowel movements and passing gas. 10/11/2024patient seen and examined at bedside. Hypoglycemia overnight and given dextrose. No chest pain or shortness of breath. Nausea improving. No complaints of abdominal pain at this time. Bowel movement yesterday still passing gas. NG tube to be removed today. Advance to full liquid diet. Echo pending. REVIEW OF SYSTEMS: Pertinent positives and negatives noted in HPI. PHYSICAL EXAMINATION: VITAL SIGNS: Reviewed GENERAL: Resting comfortably in bed. CARDIOVASCULAR: S1 and S2 present. No murmurs, rubs, or gallops. PULMONARY: Chest is clear to auscultation, no wheezing, rhonchi, or crackles. ABDOMEN: Soft, nontender. Distended. No palpable organomegaly. NEUROLOGICAL: Alert and oriented x 3. Gross neurological examination with no apparent focal deficits. EXTREMITIES: No pedal edema. SKIN: Chronic venous stasis dermatitis of left leg. Today significant findings: LabsWBC 15.1, hemoglobin 9.3, sodium 137, potassium 4.0, BUN 27, creatinine 0.58, glucose 68, AST 73, ALT 71 Chest x-ray with feeding tube terminating in stomach, moderate left pleural effusion ASSESSMENT AND PLAN: In summary, Patient is a 83-year-old female with history of hypothyroidism, hearing loss, GERD, DVT, blood disorder factor V Leiden deficiency who presents with dyspnea, and abdominal pain and distention. #Acute congestive heart failure #Hypervolemic hyponatremia, resolved #Mild hyperkalemia, resolved #Pericardial effusion without tamponade #Acute hypoxic respiratory failure -Last known echo EF 55 to 60% in 11/2019 -Chest x-ray shows cardiomegaly with pulmonary vascular congestion, small left pleural effusion CT abdomen pelvis with findings of small to moderate pericardial effusion -proBNP 2260 -Supplemental O2 as needed Echocardiogram ordered -Cardiac monitoring -Monitor BMP tomorrow and this evening -IV Lasix 20 mg once, no further Lasix -Cardiology following #Small bowel obstruction versus ileus #Leukocytosis likely due to above #Transaminitis - CT AP w/ contrast findings of air-filled and fluid-filled loops of colon NG tube placement w/ intermittent suction placed, will DC today Continue ondansetron 4 mg IVP every 8 hour as needed Continue pantoprazole 40 mg IV daily - Continue Zosyn 3.375 g every 8 hours - Stop amitriptyline - Advance diet Surgery following Chronic Medical Conditions: hypothyroidism hearing loss GERD History of DVT factor V Leiden deficiency SLE -Resume home medications, hold Xarelto and amitriptyline DVT ppx: Subcu heparin 5000 units twice daily Code status: Full code F: N.p.o. E: Replete as needed N: N.p.o. A: Ambulatory with intermittent cane use Anticipated discharge time and place: Home, tomorrow Ferny Holley MD Internal Medicine Resident, PGY1 Dictation was produced using [employer] dictation software. Please excuse any grammatical, word or spelling errors. I have seen and evaluated the patient today. Discussed with the resident and agree with the residents finding and plan as documented in the resident's note. Changes highlighted in blue font. Objective - Vital Signs Vital signs: Vital Signs Temp 98.0 F 10/11/24 03:33 Pulse 90 10/11/24 03:33 Resp 19 10/11/24 03:33 BP 145/70 10/11/24 03:33 Pulse Ox 96 10/11/24 03:33 FiO2 Intake & Output 10/10/24 10/11/24 10/11/24 18:59 06:59 18:59 Output Total 400 Balance -400 Weight 55.2 kg Output: Urine 400 Other: # Voids 1 - Labs CBC & Chem 7: 10/11/24 06:20 10/11/24 06:20 Labs: Abnormal Lab Results - Last 24 Hours (Table) 10/10/24 10/10/24 10/11/24 Range/Units 21:11 21:30 06:20 WBC 15.11 H (4.50-10.00) 10*3/uL RBC 3.45 L (4.10-5.20) 10*6/uL Hgb 9.3 L (12.0-15.0) g/dL Hct 30.0 L (37.2-46.3) % MCHC 31.0 L (32.0-37.0) g/dL Plt Count 466 H (140-440) 10*3/uL MPV 9.4 L (9.5-12.2) fL Immature Gran # 0.08 H (0.00-0.04) 10*3/uL Neutrophils # 13.00 H (1.80-7.70) 10*3/uL Lymphocytes # 0.65 L (0.90-5.00) 10*3/uL Monocytes # 1.14 H (0.20-1.00) 10*3/uL BUN (7-17) mg/dL Glucose (74-99) mg/dL POC Glucose (mg/dL) 69 L 116 H (70-110) mg/dL Calcium (8.4-10.2) mg/dL AST (14-36) U/L ALT (4-34) U/L Total Protein (6.3-8.2) g/dL 10/11/24 Range/Units 06:20 WBC (4.50-10.00) 10*3/uL RBC (4.10-5.20) 10*6/uL Hgb (12.0-15.0) g/dL Hct (37.2-46.3) % MCHC (32.0-37.0) g/dL Plt Count (140-440) 10*3/uL MPV (9.5-12.2) fL Immature Gran # (0.00-0.04) 10*3/uL Neutrophils # (1.80-7.70) 10*3/uL Lymphocytes # (0.90-5.00) 10*3/uL Monocytes # (0.20-1.00) 10*3/uL BUN 27 H (7-17) mg/dL Glucose 68 L (74-99) mg/dL POC Glucose (mg/dL) (70-110) mg/dL Calcium 8.3 L (8.4-10.2) mg/dL AST 73 H (14-36) U/L ALT 71 H (4-34) U/L Total Protein 6.0 L (6.3-8.2) g/dL Microbiology - Last 24 Hours (Table) 10/09/24 13:15 Blood Culture - Preliminary Blood
--- NOTE | 2024-10-11 12:26 | CA ---
Transthoracic Echo Report Name: Denise Anaya Age: 83 Gender: F : 1940 Exam Date: 10/11/2024 09:51 Exam Location: [place] [facility] Ht (in): 64 Wt (lb): 125 Ordering Physician: Ferny Coe MD Attending/Referring Phys: [id number], Carolin Glue Jointer Operator Estela Kwan RDCS Procedure CPT: Indications: chf Cardiac Hx: COPD, Asthma, Cancer Technical Quality: Good Contrast 1: Definity Total Dose (mL): 2 Contrast 2: Total Dose (mL): MEASUREMENTS (Male / Female) Normal Values 2D ECHO LV Diastolic Diameter PLAX 3.7 cm 4.2 - 5.9 / 3.9 - 5.3 cm LV Systolic Diameter PLAX 2.8 cm IVS Diastolic Thickness 1.2 cm 0.6 - 1.0 / 0.6 - 0.9 cm LVPW Diastolic Thickness 1.1 cm 0.6 - 1.0 / 0.6 - 0.9 cm LV Relative Wall Thickness 0.6 RV Internal Dim ED PLAX 3.0 cm LVOT Diameter 1.7 cm LA Systolic Diameter LX 3.5 cm 3.0 - 4.0 / 2.7 - 3.8 cm LV Diastolic Volume MOD BP 88.1 cm??? 67 - 155 / 56 - 104 cm??? LV Systolic Volume MOD BP 32.6 cm??? 22 - 58 / 19 - 49 cm??? LV Ejection Fraction MOD BP 63.0 % >= 55 % LV Cardiac Index MOD BP 3049.8 cm???/min???m??? LV Diastolic Volume MOD 4C 70.6 cm??? LV Systolic Volume MOD 4C 25.9 cm??? LV Ejection Fraction MOD 4C 63.3 % LV Cardiac Index MOD 4C 2455.3 cm???/min???m??? LV Diastolic Length 4C 7.4 cm LV Systolic Length 4C 6.7 cm LV Diastolic Volume MOD 2C 104.2 cm??? LV Systolic Volume MOD 2C 40.9 cm??? LV Ejection Fraction MOD 2C 60.7 % LV Cardiac Index MOD 2C 3479.0 cm???/min???m??? LV Diastolic Length 2C 7.9 cm LV Systolic Length 2C 6.8 cm LA Volume 55.9 cm??? 18 - 58 / 22 - 52 cm??? LA Volume Index 34.9 cm???/m??? 16 - 28 cm???/m??? DOPPLER MV Peak Velocity 114.1 cm/s MV Peak Gradient 5.2 mmHg MV Mean Velocity 80.2 cm/s MV Mean Gradient 2.8 mmHg MV Velocity Time Integral 29.9 cm MV Area PHT 2.6 cm??? MR Peak Velocity 549.4 cm/s MR Peak Gradient 120.7 mmHg Mitral E Point Velocity 95.5 cm/s Mitral A Point Velocity 110.7 cm/s Mitral E to A Ratio 0.9 MV Deceleration Time 287.1 ms TR Peak Velocity 301.8 cm/s TR Peak Gradient 36.4 mmHg Right Atrial Pressure 5.0 mmHg Pulmonary Artery Systolic Pressu 41.4 mmHg Right Ventricular Systolic Press 41.4 mmHg FINDINGS Left Ventricle Left ventricular ejection fraction is estimated at 60%. Mild concentric left ventricular hypertrophy. No obvious regional wall motion abnormalities. Left ventricular cavity size normal. Right Ventricle Normal right ventricular size and function. Mild pulmonary hypertension. Right ventricular systolic pressure estimated at 41 mm hg. Right Atrium Moderate right atrial dilatation. Left Atrium Mildly increased left atrial volume. Mitral Valve Mitral annular calcification. No mitral stenosis. [id number] mitral regurgitation. Aortic Valve Trileaflet aortic valve. Aortic valve sclerosis. No aortic stenosis. No aortic regurgitation. Tricuspid Valve Structurally normal tricuspid valve. No tricuspid stenosis. Mild tricuspid regurgitation. Pulmonic Valve Structurally normal pulmonic valve. No pulmonic stenosis. Trace pulmonic regurgitation. Pericardium Small pericardial effusion. Left pleural effusion. Aorta Normal size aortic root and proximal ascending aorta. CONCLUSIONS Normal LV size and systolic function. Mildly elevated PA pressures. Mild to moderate mitral and tricuspid regurgitation. Small pericardial effusion and left pleural effusion Previewed by: Dr. Kasi Pantoja MD (Electronically Signed) Final Date: 11 October 2024 12:26
[2024-10-11 14:43] LABS: Glucose,Whole Blood 176 mg/dL (70-110)
[2024-10-11 16:46] LABS: Glucose,Whole Blood 120 mg/dL (70-110)
[2024-10-11 19:59] LABS: Glucose,Whole Blood 148 mg/dL (70-110)
[2024-10-12 06:06] LABS: Glucose,Whole Blood 116 mg/dL (70-110)
[2024-10-12 08:36] LABS: ALT 63 U/L (4-34); AST 49 U/L (14-36); African American GFR (CKD) >90 (>60 ml/min/1.73 sqM); Albumin 2.9 g/dL (3.5-5.0); Alkaline Phosphatase 90 U/L (38-126); Anion Gap 3 mmol/L; Blood Urea Nitrogen 18 mg/dL (7-17); Carbon Dioxide 31 mmol/L (22-30); Chloride 104 mmol/L (98-107); Glucose 98 mg/dL (74-99); Non-African American GFR(CKD) 86 (>60 ml/min/1.73 sqM); Potassium 3.7 mmol/L (3.5-5.1); Sodium 138 mmol/L (137-145); Total Bilirubin 0.4 mg/dL (0.2-1.3); Total Protein 5.3 g/dL (6.3-8.2)
[2024-10-12] MEDS: METOPROLOL SUCCINATE (ER) 25 MG TAB.ER.24H PO SCH (10:08)
[2024-10-12 11:20] LABS: Glucose,Whole Blood 94 mg/dL (70-110)
[2024-10-12 11:38] LABS: Basophils # (A) 0.06 10*3/uL (0.00-0.10); Basophils % (A) 0.5 %; Eosinophils # (A) 0.43 10*3/uL (0.04-0.35); Eosinophils % (A) 3.2 %; HCT 29.3 % (37.2-46.3); HGB 8.9 g/dL (12.0-15.0); Lymphocytes % (A) 5.3 %; MCH 27.1 pg (27.0-32.0); MCHC 30.4 g/dL (32.0-37.0); MCV 89.1 fL (80.0-97.0); Mean Platelet Volume 9.6 fL (9.5-12.2); Monocytes # (A) 1.07 10*3/uL (0.20-1.00); Neutrophils # (A) 10.97 10*3/uL (1.80-7.70); Neutrophils % (A) 82.3 %; Platelet Count 437 10*3/uL (140-440); RBC 3.29 10*6/uL (4.10-5.20); RDW 15.5 % (11.5-14.5); WBC 13.32 10*3/uL (4.50-10.00)
--- NOTE | 2024-10-12 11:58 | P.PN ---
Subjective Progress Note Date: 10/12/24 SURGICAL PROGRESS NOTE CHIEF COMPLAINT: Abdominal distention HISTORY OF PRESENT ILLNESS: Patient denies any abdominal pain. She is up and moving around in her room. She is having bowel movements. Tolerated full liquid diet. She is feeling better. Afebrile. WBC is down from 15-13 Hgb 8.9 Patient seen and examined with Dr. Amado PHYSICAL EXAM: VITAL SIGNS: Reviewed. GENERAL: Well-developed in no acute distress. HEENT: No sclera icterus. Extraocular movements grossly intact. Moist buccal mucosa. Head is atraumatic, normocephalic. ABDOMEN: Soft. Nondistended. Nontender. NEUROLOGIC: Alert and oriented. Cranial nerves II through XII grossly intact. ASSESSMENT: 1. Ileus resolved PLAN: -Advance diet to regular -Okay to resume Xarelto - Surgical service will sign off. Please call with any questions or concerns. Physician Auto Machinist note has been reviewed by physician. Signing provider agrees with the documented findings, assessment, and plan of care. Objective - Vital Signs Vital signs: Vital Signs Temp 97.7 F 10/12/24 08:00 Pulse 84 10/12/24 08:00 Resp 18 10/12/24 08:00 BP 120/64 10/12/24 08:00 Pulse Ox 92 L 10/12/24 08:00 FiO2 Intake & Output 10/11/24 10/12/24 10/12/24 18:59 06:59 18:59 Intake Total 480 260 240 Output Total 225 Balance 480 35 240 Weight 55.4 kg Intake: IV 20 Invasive Line 2 20 Oral 480 240 240 Output: Urine 225 Other: Voiding Method Toilet Toilet # Voids 2 - Labs CBC & Chem 7: 10/12/24 07:45 10/12/24 07:45 Labs: Abnormal Lab Results - Last 24 Hours (Table) 10/11/24 10/11/24 10/11/24 Range/Units 14:41 16:45 19:58 WBC (4.50-10.00) 10*3/uL RBC (4.10-5.20) 10*6/uL Hgb (12.0-15.0) g/dL Hct (37.2-46.3) % MCHC (32.0-37.0) g/dL Immature Gran # (0.00-0.04) 10*3/uL Neutrophils # (1.80-7.70) 10*3/uL Lymphocytes # (0.90-5.00) 10*3/uL Monocytes # (0.20-1.00) 10*3/uL Eosinophils # (0.04-0.35) 10*3/uL Carbon Dioxide (22-30) mmol/L BUN (7-17) mg/dL POC Glucose (mg/dL) 176 H 120 H 148 H (70-110) mg/dL Calcium (8.4-10.2) mg/dL AST (14-36) U/L ALT (4-34) U/L Total Protein (6.3-8.2) g/dL Albumin (3.5-5.0) g/dL 10/12/24 10/12/24 10/12/24 Range/Units 06:05 07:45 07:45 WBC 13.32 H (4.50-10.00) 10*3/uL RBC 3.29 L (4.10-5.20) 10*6/uL Hgb 8.9 L (12.0-15.0) g/dL Hct 29.3 L (37.2-46.3) % MCHC 30.4 L (32.0-37.0) g/dL Immature Gran # 0.09 H (0.00-0.04) 10*3/uL Neutrophils # 10.97 H (1.80-7.70) 10*3/uL Lymphocytes # 0.70 L (0.90-5.00) 10*3/uL Monocytes # 1.07 H (0.20-1.00) 10*3/uL Eosinophils # 0.43 H (0.04-0.35) 10*3/uL Carbon Dioxide 31 H (22-30) mmol/L BUN 18 H (7-17) mg/dL POC Glucose (mg/dL) 116 H (70-110) mg/dL Calcium 8.0 L (8.4-10.2) mg/dL AST 49 H (14-36) U/L ALT 63 H (4-34) U/L Total Protein 5.3 L (6.3-8.2) g/dL Albumin 2.9 L (3.5-5.0) g/dL Microbiology - Last 24 Hours (Table) 10/09/24 13:15 Blood Culture - Preliminary Blood
--- NOTE | 2024-10-12 12:17 | P.PN ---
Subjective HISTORY OF PRESENT ILLNESS: This is a 83-year-old female with a past medical history significant for DVT and hypothyroidism. Patient does not follow with a ice cream freezer assistant. We have been asked to see the patient in consultation for congestive heart failure. Patient examined this morning in the emergency room. Patient presented to the hospital for chief complaint of abdominal pain. She reports that her abdomen was getting more more distended at home. She reports nausea but no vomiting. Patient was found to have bowel obstruction and is being followed by general surgery. Patient was given a one-time dose of IV Lasix per primary medicine. She denies any chest pain or pressure. She denies any shortness of breath. DIAGNOSTICS: - EKG reveals sinus mechanism with no signs of acute ischemia. - Chest xray cardiomegaly with pulmonary vascular congestion. Small left pleural effusion with adjacent atelectasis or consolidation. - CT abdomen and pelvis small left and minimal right pleural effusion. Infiltrate at left lung base may be related to compressive atelectasis. Small to moderate pericardial effusion. - Current home cardiac medications include Xarelto 10 mg daily, nifedipine 60 mg twice a day. - Most recent echocardiogram obtained in November 2019 revealed ejection fraction 55 to 60%, moderate concentric LVH, mild to moderate MR, mild to moderate TR, mild to moderate pulmonary pretension - Cardiac catheterization history: Patient denies 10/11/2024 Patient examined this morning at the bedside. Patient currently denies chest pain or pressure. She denies shortness of breath. She remains n.p.o. with NG tube this morning. 2D echo remains pending. 10/12/2024 Patient examined this morning at bedside. Patient denies chest pain or pressure. Denies shortness of breath. Telemetry reveals sinus mechanism with some runs of atrial tachycardia. Echocardiogram completed revealing ejection fraction 60%, mild pulm hypertension, mild to moderate mitral regurgitation, mild tricuspid regurgitation, small pericardial effusion, left pleural effusion. PHYSICAL EXAM: VITAL SIGNS: Reviewed. GENERAL: Well-developed in no acute distress. HEENT: Head is normocephalic. Pupils are equal, round. Sclerae anicteric. Mucous membranes of the mouth are moist. Neck supple. No JVD or thyromegaly LUNGS: Respirations even and unlabored. Lungs essentially clear to auscultation bilaterally. HEART: Regular rate and rhythm. S1 and S2 heard. ABDOMEN: Soft. Nontender. EXTREMITIES: Normal range of motion. No clubbing or cyanosis. Peripheral pulses intact. No lower extremity edema NEUROLOGIC: Awake and alert. Oriented x 3. ASSESSMENT: Abdominal pain Small bowel obstruction Mild acute congestive heart failure with preserved EF 60% Mild to moderate mitral regurgitation Small pericardial effusion Hypertension History of DVT Hypothyroidism Paroxysmal atrial tachycardia PLAN: Resume Xarelto Add metoprolol succinate 25 mg daily Patient is currently stable from a cardiac standpoint with no further inpatient recommendations We will sign off. Please reconsult if needed. Nurse practitioner note has been reviewed by physician. Signing provider agrees with the documented findings, assessment, and plan of care documented by SENIOR BUSINESS PROCESS ANALYST as a scribe. Objective - Vital Signs Vital signs: Vital Signs Temp 97.7 F 10/12/24 08:00 Pulse 84 10/12/24 08:00 Resp 18 10/12/24 08:00 BP 120/64 10/12/24 08:00 Pulse Ox 92 L 10/12/24 08:00 FiO2 Intake & Output 10/11/24 10/12/24 10/12/24 18:59 06:59 18:59 Intake Total 480 260 240 Output Total 225 Balance 480 35 240 Weight 55.4 kg Intake: IV 20 Invasive Line 2 20 Oral 480 240 240 Output: Urine 225 Other: Voiding Method Toilet Toilet # Voids 2 - Labs CBC & Chem 7: 10/12/24 07:45 10/12/24 07:45 Labs: Abnormal Lab Results - Last 24 Hours (Table) 10/11/24 10/11/24 10/11/24 Range/Units 14:41 16:45 19:58 WBC (4.50-10.00) 10*3/uL RBC (4.10-5.20) 10*6/uL Hgb (12.0-15.0) g/dL Hct (37.2-46.3) % MCHC (32.0-37.0) g/dL Immature Gran # (0.00-0.04) 10*3/uL Neutrophils # (1.80-7.70) 10*3/uL Lymphocytes # (0.90-5.00) 10*3/uL Monocytes # (0.20-1.00) 10*3/uL Eosinophils # (0.04-0.35) 10*3/uL Carbon Dioxide (22-30) mmol/L BUN (7-17) mg/dL POC Glucose (mg/dL) 176 H 120 H 148 H (70-110) mg/dL Calcium (8.4-10.2) mg/dL AST (14-36) U/L ALT (4-34) U/L Total Protein (6.3-8.2) g/dL Albumin (3.5-5.0) g/dL 10/12/24 10/12/24 10/12/24 Range/Units 06:05 07:45 07:45 WBC 13.32 H (4.50-10.00) 10*3/uL RBC 3.29 L (4.10-5.20) 10*6/uL Hgb 8.9 L (12.0-15.0) g/dL Hct 29.3 L (37.2-46.3) % MCHC 30.4 L (32.0-37.0) g/dL Immature Gran # 0.09 H (0.00-0.04) 10*3/uL Neutrophils # 10.97 H (1.80-7.70) 10*3/uL Lymphocytes # 0.70 L (0.90-5.00) 10*3/uL Monocytes # 1.07 H (0.20-1.00) 10*3/uL Eosinophils # 0.43 H (0.04-0.35) 10*3/uL Carbon Dioxide 31 H (22-30) mmol/L BUN 18 H (7-17) mg/dL POC Glucose (mg/dL) 116 H (70-110) mg/dL Calcium 8.0 L (8.4-10.2) mg/dL AST 49 H (14-36) U/L ALT 63 H (4-34) U/L Total Protein 5.3 L (6.3-8.2) g/dL Albumin 2.9 L (3.5-5.0) g/dL Microbiology - Last 24 Hours (Table) 10/09/24 13:15 Blood Culture - Preliminary Blood
--- NOTE | 2024-10-12 12:52 | P.DS ---
Providers Date of admission: 10/09/24 13:29 Expected date of discharge: 10/12/24 Attending physician: Mehdi Staley Primary care physician: Tariq Ridley Hospital Course: Discharge diagnoses; #Acute congestive heart failure #Hypervolemic hyponatremia, resolved #Mild hyperkalemia, resolved #Pericardial effusion without tamponade #Acute hypoxic respiratory failure #Small bowel obstruction versus ileus #Leukocytosis likely due to above #Transaminitis hypothyroidism hearing loss GERD History of DVT factor V Leiden deficiency SLE Hospital course; History of present illness; Patient is a 83-year-old female with history of hypothyroidism, hearing loss, GERD, DVT, blood disorder factor V Leiden deficiency, SLE who presents with dyspnea, and abdominal pain and distention. Patient states that over the last 3 to 4 days she has had increasing generalized abdominal pain and distention. She states that she has not had a bowel movement since Wednesday and has not passed gas since around the same time. She states she tried Tums and Benefiber this morning without improvement. No previous similar incidents. She states she does have a history of hysterectomy, appendectomy and cholecystectomy. She also states she has history of IBS. Also during this time patient states she has shortness of breath which is worse with deep inspiration. She denies orthopnea, chest pain, or palpitations. She also states that deep inspiration makes her have dry cough. She reports absence of fever, nausea, vomiting, weakness, dizziness or dysuria. ER FINDINGS: Labs significant for WBC 15.9, hemoglobin 8.8, sodium 128, potassium 5.2, chloride 93, BUN 41, creatinine 0.94, glucose 100, magnesium 2.4, AST 54, ALT 49, troponin <0.012, proBNP 2260 EKG independently interpreted showed sinus rhythm heart rate of 88, QTc 428, no ST segment elevation or depression seen, no T-wave inversions seen. Chest x-ray done independently interpreted showed cardiomegaly with pulmonary vascular congestion. Small left pleural effusion with adjacent atelectasis and/or consolidation. CT abdomen pelvis independently interpreted with findings of small left and minimal right pleural effusion, infiltrate at the left base, small to moderate pericardial effusion, air-filled and fluid-filled loops of colon correlate for ileus. During hospital course patient was treated for acute CHF exacerbation with acute hypoxic respiratory failure she was treated with 2 doses of Lasix and improved. She was seen by cardiology. She was also treated for small bowel obstruction versus ileus and had NG tube placed and continue to improve as her diet advanced. She was seen by surgery. Patient discharged home in stable condition. She will continue new medication metoprolol 25 mg daily. She will also need to taper her amitriptyline dose as an outpatient due to potential cause of ileus. She will follow-up with her PCP. PHYSICAL EXAMINATION: VITAL SIGNS: Reviewed GENERAL: Resting comfortably in bed. CARDIOVASCULAR: S1 and S2 present. No murmurs, rubs, or gallops. PULMONARY: Chest is clear to auscultation, no wheezing, rhonchi, or crackles. ABDOMEN: Soft, nontender. Distended. No palpable organomegaly. NEUROLOGICAL: Alert and oriented x 3. Gross neurological examination with no apparent focal deficits. EXTREMITIES: No pedal edema. SKIN: Chronic venous stasis dermatitis of left leg. Ferny Holley MD Internal Medicine Resident, PGY1 Dictation was produced using [employer] dictation software. please excuse any grammatical, word or spelling errors. Patient unable to be discharged today as no longer tolerating solids yet. Also having hypoxia with ambulation. Will be discharged tomorrow. This note will serve as today's progress note. I have seen and evaluated the patient today. Discussed with the resident and agree with the residents finding and plan as documented in the resident's note. Changes highlighted in blue font. Patient Condition at Discharge: Stable Plan - Discharge Summary Discharge Rx Participant: No New Discharge Prescriptions: New Metoprolol Succinate (ER) [Toprol XL] 25 mg PO DAILY #90 tab Continue Ferrous Sulfate [Iron] 325 mg PO DAILY Biotin 10,000 mcg PO DAILY NIFEdipine [NIFEdipine ER (Osmotic)] 60 mg PO BID Hydroxychloroquine Sulfate [Plaquenil] 200 mg PO BID Magnesium 250 mg PO HS Amitriptyline HCl [Elavil] 50 mg PO HS Rivaroxaban [Xarelto] 10 mg PO DAILY L.acidoph,Paracasei, B.lactis [Probiotic] 1 cap PO DAILY Psyllium Husk [Fiber Capsule] 0.4 gm PO DAILY Cholecalciferol [Vitamin D3 (125 Mcg = 5000 Iu)] 125 mcg PO DAILY Levothyroxine Sodium [Synthroid] 88 mcg PO DAILY Discharge Medication List Biotin 10,000 mcg PO DAILY 01/22/20 [History] Ferrous Sulfate [Iron] 325 mg PO DAILY 01/22/20 [History] Hydroxychloroquine Sulfate [Plaquenil] 200 mg PO BID 01/22/20 [History] Magnesium 250 mg PO HS 01/22/20 [History] NIFEdipine [NIFEdipine ER (Osmotic)] 60 mg PO BID 01/22/20 [History] Amitriptyline HCl [Elavil] 50 mg PO HS 04/30/20 [History] Cholecalciferol [Vitamin D3 (125 Mcg = 5000 Iu)] 125 mcg PO DAILY 10/09/24 [History] L.acidoph,Paracasei, B.lactis [Probiotic] 1 cap PO DAILY 10/09/24 [History] Levothyroxine Sodium [Synthroid] 88 mcg PO DAILY 10/09/24 [History] Psyllium Husk [Fiber Capsule] 0.4 gm PO DAILY 10/09/24 [History] Rivaroxaban [Xarelto] 10 mg PO DAILY 10/09/24 [History] Metoprolol Succinate (ER) [Toprol XL] 25 mg PO DAILY #90 tab 10/12/24 [Rx] Follow up Appointment(s)/Referral(s): Tariq Ridley DO [Primary Care Provider] - 1-2 days Residential Home[facility] [NON-STAFF] - Activity/Diet/Wound Care/Special Instructions: Follow-up with PCP. Taper amitriptyline dose gradually. Discharge/Stand Alone Forms: Who Do I Call?, Help In The Home Discharge Disposition: HOME SELF-CARE
[2024-10-12] MEDS: RIVAROXABAN 10 MG TAB PO SCH (14:05)
[2024-10-12 16:19] LABS: Glucose,Whole Blood 110 mg/dL (70-110)
[2024-10-12 16:31] VITALS: RESP 16
[2024-10-12 20:12] LABS: Glucose,Whole Blood 116 mg/dL (70-110)
[2024-10-13 07:19] LABS: Glucose,Whole Blood 91 mg/dL (70-110)
[2024-10-13 09:00] LABS: Basophils # (A) 0.07 10*3/uL (0.00-0.10); Basophils % (A) 0.5 %; Eosinophils # (A) 0.61 10*3/uL (0.04-0.35); Eosinophils % (A) 4.5 %; HCT 30.7 % (37.2-46.3); HGB 9.4 g/dL (12.0-15.0); Lymphocytes # (A) 0.75 10*3/uL (0.90-5.00); Lymphocytes % (A) 5.6 %; MCH 27.2 pg (27.0-32.0); MCHC 30.6 g/dL (32.0-37.0); MCV 88.7 fL (80.0-97.0); Mean Platelet Volume 9.7 fL (9.5-12.2); Monocytes # (A) 1.05 10*3/uL (0.20-1.00); Monocytes % (A) 7.8 %; Neutrophils % (A) 80.7 %; Platelet Count 465 10*3/uL (140-440); RBC 3.46 10*6/uL (4.10-5.20); RDW 15.3 % (11.5-14.5)
[2024-10-13 09:20] LABS: ALT 56 U/L (4-34); AST 40 U/L (14-36); African American GFR (CKD) >90 (>60 ml/min/1.73 sqM); Alkaline Phosphatase 90 U/L (38-126); Anion Gap 10 mmol/L; Blood Urea Nitrogen 13 mg/dL (7-17); Carbon Dioxide 27 mmol/L (22-30); Chloride 99 mmol/L (98-107); Glucose 84 mg/dL (74-99); Non-African American GFR(CKD) >90 (>60 ml/min/1.73 sqM); Potassium 3.6 mmol/L (3.5-5.1); Sodium 136 mmol/L (137-145); Total Bilirubin 0.4 mg/dL (0.2-1.3); Total Protein 5.5 g/dL (6.3-8.2)
--- NOTE | 2024-10-13 11:32 | P.DS ---
Providers Date of admission: 10/09/24 13:29 Expected date of discharge: 10/13/24 Attending physician: Mehdi Staley Primary care physician: Tariq Ridley Hospital Course: Discharge diagnoses; #Acute congestive heart failure #Hypervolemic hyponatremia, resolved #Mild hyperkalemia, resolved #Pericardial effusion without tamponade #Acute hypoxic respiratory failure #Small bowel obstruction versus ileus #Leukocytosis likely due to above #Transaminitis hypothyroidism hearing loss GERD History of DVT factor V Leiden deficiency SLE Hospital course; History of present illness; Patient is a 83-year-old female with history of hypothyroidism, hearing loss, GERD, DVT, blood disorder factor V Leiden deficiency, SLE who presents with dyspnea, and abdominal pain and distention. Patient states that over the last 3 to 4 days she has had increasing generalized abdominal pain and distention. She states that she has not had a bowel movement since Wednesday and has not passed gas since around the same time. She states she tried Tums and Benefiber this morning without improvement. No previous similar incidents. She states she does have a history of hysterectomy, appendectomy and cholecystectomy. She also states she has history of IBS. Also during this time patient states she has shortness of breath which is worse with deep inspiration. She denies orthopnea, chest pain, or palpitations. She also states that deep inspiration makes her have dry cough. She reports absence of fever, nausea, vomiting, weakness, dizziness or dysuria. ER FINDINGS: Labs significant for WBC 15.9, hemoglobin 8.8, sodium 128, potassium 5.2, chloride 93, BUN 41, creatinine 0.94, glucose 100, magnesium 2.4, AST 54, ALT 49, troponin <0.012, proBNP 2260 EKG independently interpreted showed sinus rhythm heart rate of 88, QTc 428, no ST segment elevation or depression seen, no T-wave inversions seen. Chest x-ray done independently interpreted showed cardiomegaly with pulmonary vascular congestion. Small left pleural effusion with adjacent atelectasis and/or consolidation. CT abdomen pelvis independently interpreted with findings of small left and minimal right pleural effusion, infiltrate at the left base, small to moderate pericardial effusion, air-filled and fluid-filled loops of colon correlate for ileus. During hospital course patient was treated for acute CHF exacerbation with acute hypoxic respiratory failure she was treated with 2 doses of Lasix and improved. She was seen by cardiology. She was also treated for small bowel obstruction versus ileus and had NG tube placed and continue to improve as her diet advanced. She was seen by surgery. Able to tolerate solids, however with watery bowel movement at this time. Patient discharged home in stable condition. She will continue new medication metoprolol 25 mg daily. She will also need to taper her amitriptyline dose as an outpatient due to potential cause of ileus. She will follow-up with her PCP. Recommend that she begins daily fiber supplementation, and hold off on using antidiarrheal until she sees PCP. PHYSICAL EXAMINATION: VITAL SIGNS: Reviewed GENERAL: Resting comfortably in bed. CARDIOVASCULAR: S1 and S2 present. No murmurs, rubs, or gallops. PULMONARY: Chest is clear to auscultation, no wheezing, rhonchi, or crackles. ABDOMEN: Soft, nontender. Distended. No palpable organomegaly. NEUROLOGICAL: Alert and oriented x 3. Gross neurological examination with no apparent focal deficits. EXTREMITIES: No pedal edema. SKIN: Chronic venous stasis dermatitis of left leg. Ferny Holley MD Internal Medicine Resident, PGY1 Dictation was produced using [employer] dictation software. please excuse any grammatical, word or spelling errors. I saw and evaluated the patient during the white and critical portions of this encounter, and discussed the case in detail with the resident author of this note, I agree with the Assessment and Plan, and my changes, if any, are highlighted in blue. Patient Condition at Discharge: Stable Plan - Discharge Summary Discharge Rx Participant: No New Discharge Prescriptions: New Metoprolol Succinate (ER) [Toprol XL] 25 mg PO DAILY #90 tab Continue Ferrous Sulfate [Iron] 325 mg PO DAILY Biotin 10,000 mcg PO DAILY NIFEdipine [NIFEdipine ER (Osmotic)] 60 mg PO BID Hydroxychloroquine Sulfate [Plaquenil] 200 mg PO BID Magnesium 250 mg PO HS Amitriptyline HCl [Elavil] 50 mg PO HS Rivaroxaban [Xarelto] 10 mg PO DAILY L.acidoph,Paracasei, B.lactis [Probiotic] 1 cap PO DAILY Psyllium Husk [Fiber Capsule] 0.4 gm PO DAILY Cholecalciferol [Vitamin D3 (125 Mcg = 5000 Iu)] 125 mcg PO DAILY Levothyroxine Sodium [Synthroid] 88 mcg PO DAILY Discharge Medication List Biotin 10,000 mcg PO DAILY 01/22/20 [History] Ferrous Sulfate [Iron] 325 mg PO DAILY 01/22/20 [History] Hydroxychloroquine Sulfate [Plaquenil] 200 mg PO BID 01/22/20 [History] Magnesium 250 mg PO HS 01/22/20 [History] NIFEdipine [NIFEdipine ER (Osmotic)] 60 mg PO BID 01/22/20 [History] Amitriptyline HCl [Elavil] 50 mg PO HS 04/30/20 [History] Cholecalciferol [Vitamin D3 (125 Mcg = 5000 Iu)] 125 mcg PO DAILY 10/09/24 [History] L.acidoph,Paracasei, B.lactis [Probiotic] 1 cap PO DAILY 10/09/24 [History] Levothyroxine Sodium [Synthroid] 88 mcg PO DAILY 10/09/24 [History] Psyllium Husk [Fiber Capsule] 0.4 gm PO DAILY 10/09/24 [History] Rivaroxaban [Xarelto] 10 mg PO DAILY 10/09/24 [History] Metoprolol Succinate (ER) [Toprol XL] 25 mg PO DAILY #90 tab 10/12/24 [Rx] Follow up Appointment(s)/Referral(s): Tariq Ridley DO [Primary Care Provider] - 1-2 days (Please call office and make appointment ) [facility] [NON-STAFF] - Activity/Diet/Wound Care/Special Instructions: Follow-up with PCP. Taper amitriptyline dose gradually. Discharge/Stand Alone Forms: Who Do I Call?, Help In The Home Discharge Disposition: HOME SELF-CARE
[2024-10-13 12:32] LABS: Glucose,Whole Blood 94 mg/dL (70-110)
[2024-10-13 12:43] VITALS: BP 126/90; PULSE 83; TEMP 97.9
== END 2024-10-13 15:38 | disposition home or self-care (01) | DRG 291 ==
LOC: EC 10:31 → 3SCARD 13:29 → 5NMEDONC 10-12 21:16
PROVIDERS: ADMIT Student in an Organized Health Care Education/Training Program; ATTEND Student in an Organized Health Care Education/Training Program
PROC: 0D9670Z Drainage of Stomach with Drainage Device, Via Natural or Artificial Opening (ICD-10-PCS; principal; 2024-10-09)
DX: I11.0 Hypertensive heart disease with heart failure (principal); I50.31 Acute diastolic (congestive) heart failure; J96.01 Acute respiratory failure with hypoxia; K56.609 Unspecified intestinal obstruction, unspecified as to partial versus complete obstruction; I31.39 Other pericardial effusion (noninflammatory); E87.1 Hypo-osmolality and hyponatremia; K56.7 Ileus, unspecified; I47.19 Other supraventricular tachycardia; M32.9 Systemic lupus erythematosus, unspecified; I27.20 Pulmonary hypertension, unspecified; E03.9 Hypothyroidism, unspecified; I08.1 Rheumatic disorders of both mitral and tricuspid valves; D68.51 Activated protein C resistance; I87.8 Other specified disorders of veins; D72.829 Elevated white blood cell count, unspecified; E87.5 Hyperkalemia; R74.01 Elevation of levels of liver transaminase levels; H91.90 Unspecified hearing loss, unspecified ear; K21.9 Gastro-esophageal reflux disease without esophagitis; Z86.718 Personal history of other venous thrombosis and embolism; Z79.890 Hormone replacement therapy; Z88.1 Allergy status to other antibiotic agents; Z88.5 Allergy status to narcotic agent; Z79.01 Long term (current) use of anticoagulants; Z79.899 Other long term (current) drug therapy; Z87.11 Personal history of peptic ulcer disease; Z90.49 Acquired absence of other specified parts of digestive tract; Z90.710 Acquired absence of both cervix and uterus; Z96.653 Presence of artificial knee joint, bilateral; Z98.49 Cataract extraction status, unspecified eye; Z98.42 Cataract extraction status, left eye; Z98.41 Cataract extraction status, right eye; Z96.642 Presence of left artificial hip joint
CPT/HCPCS: 36415; 71045; 71046; 74176; 80048; 80053; 81003; 83605; 83735; 83880; 84484; 85025; 85610; 85730; 87040; 93005; 93306; 94760; 96365; 96366; 96372; 96375; 99285

== ENCOUNTER 2024-10-19 13:54 | Emergency (ER) | payer MEDICARE ==
--- NOTE | 2024-10-19 14:38 | ED ---
General Adult HPI - General Chief complaint: Recheck/Abnormal Lab/Rx Stated complaint: abn vitals,SOB Time Seen by Provider: 10/19/24 14:13 Source: patient, family, RN notes reviewed, old records reviewed Mode of arrival: wheelchair Limitations: no limitations - History of Present Illness Initial comments: 83-year-old female with recent diagnosis of congestive heart failure presents for evaluation of racing heart sensation. Patient was seen by her home care nurse and noted to be tachycardic at 130. She was sent to the emergency department for evaluation. Patient states her symptoms have resolved. She has no palpitations. No dyspnea. She does have minor lower extremity edema which she states her primary care provider placed her on Lasix for yesterday and she took a second dose today. No increased dyspnea. Patient was discharged on oxygen. - Related Data Home Medications Medication Instructions Recorded Confirmed Biotin 10,000 mcg PO DAILY 01/22/20 10/09/24 Ferrous Sulfate [Iron] 325 mg PO DAILY 01/22/20 10/09/24 Hydroxychloroquine Sulfate 200 mg PO BID 01/22/20 10/09/24 [Plaquenil] Magnesium 250 mg PO HS 01/22/20 10/09/24 NIFEdipine [NIFEdipine ER 60 mg PO BID 01/22/20 10/09/24 (Osmotic)] Amitriptyline HCl [Elavil] 50 mg PO HS 04/30/20 10/09/24 Cholecalciferol [Vitamin D3 (125 125 mcg PO DAILY 10/09/24 10/09/24 Mcg = 5000 Iu)] L.acidoph,Paracasei, B.lactis 1 cap PO DAILY 10/09/24 10/09/24 [Probiotic] Levothyroxine Sodium [Synthroid] 88 mcg PO DAILY 10/09/24 10/09/24 Psyllium Husk [Fiber Capsule] 0.4 gm PO DAILY 10/09/24 10/09/24 Rivaroxaban [Xarelto] 10 mg PO DAILY 10/09/24 10/09/24 Previous Rx's Medication Instructions Recorded Metoprolol Succinate (ER) [Toprol 25 mg PO DAILY #90 tab 10/12/24 XL] Allergies Allergy/AdvReac Type Severity Reaction Status Date / Time azithromycin [From Zithromax] AdvReac Nausea & Verified 10/09/24 14:25 Vomiting morphine AdvReac Nausea & Verified 10/09/24 10:37 Vomiting Review of Systems ROS Statement: Those systems with pertinent positive or pertinent negative responses have been documented in the HPI. ROS Other: All systems not noted in ROS Statement are negative. Past Medical History Past Medical History: Blood Disorder, Deep Vein Thrombosis (DVT), Eye Disorder, GERD/Reflux, GI Bleed, Hearing Disorder / Deafness, Osteoarthritis (OA), Skin Disorder, Thyroid Disorder Additional Past Medical History / Comment(s): Factor V Leiden, hx. headaches, hx. Hiatal Hernia, gastric ulcer, belching. worsening GERD., BILAT CATARACTS, Lupus. shingles 01/22/20 History of Any Multi-Drug Resistant Organisms: None Reported Past Surgical History: Appendectomy, Cholecystectomy, Ear Surgery, Hysterectomy, Joint Replacement, Tonsillectomy Additional Past Surgical History / Comment(s): carpal tunnel surgery rotator cuff surgery bilateral and left twice, left knee replacement, bilat cataract surgery, Ari Fundoplasty, EGD, REVISION OF ARI FUNDOPLASTY Past Anesthesia/Blood Transfusion Reactions: No Reported Reaction Additional Past Anesthesia/Blood Transfusion Reaction / Comment(s): no complications with prior blood transfusions Past Psychological History: No Psychological Hx Reported Smoking Status: Never smoker Past Alcohol Use History: None Reported Past Drug Use History: None Reported - Past Family History Father History Unknown: Yes Family Medical History: CVA/TIA Additional Family Medical History / Comment(s): alcoholism Sister(s) History Unknown: Yes Family Medical History: Diabetes Mellitus Additional Family Medical History / Comment(s): schleroderma Brother(s) History Unknown: Yes Family Medical History: Diabetes Mellitus Mother History Unknown: Yes Family Medical History: No Reported History Additional Family Medical History / Comment(s): heart problems General Exam Limitations: no limitations General appearance: alert, in no apparent distress Head exam: Present: atraumatic, normocephalic Eye exam: Present: normal appearance, PERRL ENT exam: Present: normal exam Neck exam: Present: normal inspection. Absent: tenderness, meningismus Respiratory exam: Present: decreased breath sounds. Absent: respiratory distress Cardiovascular Exam: Present: regular rate, normal rhythm Extremities exam: Present: pedal edema Neurological exam: Present: alert, oriented X3 Psychiatric exam: Present: normal affect, normal mood Skin exam: Present: warm, dry, intact Course Vital Signs 10/19/24 14:08 Temperature 97.3 F L Pulse Rate 83 Respiratory 18 Rate Blood Pressure 121/64 O2 Sat by Pulse 98 Oximetry Medical Decision Making - Medical Decision Making Was pt. sent in by a medical professional or institution (SHAMAR Moran, CLASSIFICATION COUNSELOR, urgent care, hospital, or alf...) When possible be specific @ -No Did you speak to anyone other than the patient for history (EMS, parent, family, police, friend...)? What history was obtained from this source @ -No Did you review nursing and triage notes (agree or disagree)? Why? @ -I reviewed and agree with nursing and triage notes Were old charts reviewed (outside hosp., previous admission, EMS record, old EKG, old radiological studies, urgent care reports/EKG's, alf records)? Report findings @ -No old charts were reviewed Differential Dyspnea: Coronary syndrome, arrhythmia, tamponade, asthma, COPD, pulmonary embolism, pneumonia, pneumothorax, pulmonary effusion, anaphylaxis, diabetic ketoacidosis, flailed chest, pulmonary contusion, diaphragmatic rupture, anemia, neuromuscular, this is not meant to be an all-inclusive list. EKG interpreted by me (3pts min.). @Sinus rhythm rate of 82, VA interval 120, QRS duration 96, QTc [address] segment elevation. X-rays interpreted by me (1pt min.). @Chest x-ray showing persistent left-sided effusion similar to prior CT interpreted by me (1pt min.). @ -None done U/S interpreted by me (1pt. min.). @ -None done What testing was considered but not performed or refused? (CT, X-rays, U/S, labs)? Why? @ -None What meds were considered but not given or refused? Why? @ -None Did you discuss the management of the patient with other professionals (professionals i.e. SHAMAR Moran, CLASSIFICATION COUNSELOR, lab, RT, psych nurse, long term care social worker, arts and crafts teacher, teacher, occupational health and safety officer, residential case manager)? Give summary @ -No Was smoking cessation discussed for >3mins.? @ -No Was critical care preformed (if so, how long)? @ -No Were there social determinants of health that impacted care today? How? (Homelessness, low income, unemployed, alcoholism, drug addiction, transportation, low edu. Level, literacy, decrease access to med. care, long term, rehab)? @ -No Was there de-escalation of care discussed even if they declined (Discuss DNR or withdrawal of care, Hospice)? DNR status @ -No What co-morbidities impacted this encounter? (DM, HTN, Smoking, COPD, CAD, Cancer, CVA, ARF, Chemo, Hep., AIDS, mental health diagnosis, sleep apnea, morbid obesity)? @ -New diagnosis of CHF on recent admission Was patient admitted / discharged? Hospital course, mention meds given and route, prescriptions, significant lab abnormalities, going to OR and other pertinent info. @ -83-year-old female with palpitation, racing heart. Patient is in sinus rhythm with a rate of 82 on EKG. She did have recent mission for heart failure. Her chest x-ray was repeated which was stable. She has a leukocytosis of uncertain etiology. No fever. Patient has stable chronic anemia. She has a negative troponin and a downtrending BMP. Patient will monitor symptoms closely at home and return as needed. Undiagnosed new problem with uncertain prognosis? @ -No Drug Therapy requiring intensive monitoring for toxicity (Heparin, Nitro, Insulin, Cardizem)? @ -No Were any procedures done? @ -No Diagnosis/symptom? @ -Palpitation Acute, or Chronic, or Acute on Chronic? @ -Acute Uncomplicated (without systemic symptoms) or Complicated (systemic symptoms)? @ -Default Side effects of treatment? @ -No Exacerbation, Progression, or Severe Exacerbation? @ -No Poses a threat to life or bodily function? How? (Chest pain, [place], [place], pneumonia, PE, COPD, DKA, ARF, appy, cholecystitis, CVA, Diverticulitis, Homicidal, Suicidal, threat to staff... and all critical care pts) @ -Low risk at this time - Lab Data Result diagrams: 10/19/24 14:50 10/19/24 14:50 Lab Results 10/19/24 10/19/24 10/19/24 Range/Units 14:50 14:50 14:50 WBC 18.22 H (4.50-10.00) 10*3/uL RBC 3.36 L (4.10-5.20) 10*6/uL Hgb 9.1 L (12.0-15.0) g/dL Hct 28.9 L (37.2-46.3) % MCV 86.0 (80.0-97.0) fL MCH 27.1 (27.0-32.0) pg MCHC 31.5 L (32.0-37.0) g/dL Plt Count 492 H (140-440) 10*3/uL MPV 9.5 (9.5-12.2) fL Immature Gran % (Auto) 1.6 % Neutrophils % 85.8 % Lymphocytes % 4.6 % Monocytes % 7.1 % Eosinophils % 0.5 % Basophils % 0.4 % Immature Gran # 0.29 H (0.00-0.04) 10*3/uL Neutrophils # 15.64 H (1.80-7.70) 10*3/uL Lymphocytes # 0.83 L (0.90-5.00) 10*3/uL Monocytes # 1.30 H (0.20-1.00) 10*3/uL Eosinophils # 0.09 (0.04-0.35) 10*3/uL Basophils # 0.07 (0.00-0.10) 10*3/uL PT 11.4 (10.0-12.5) sec INR 1.0 (<1.2) APTT 23.5 (22.0-30.0) sec Sodium 133 L (137-145) mmol/L Potassium 4.4 (3.5-5.1) mmol/L Chloride 95 L (98-107) mmol/L Carbon Dioxide 25 (22-30) mmol/L Anion Gap 13 mmol/L BUN 21 H (7-17) mg/dL Creatinine 0.55 (0.52-1.04) mg/dL Est GFR (CKD-EPI)AfAm >90 (>60 ml/min/1.73 sqM) Est GFR (CKD-EPI)NonAf 87 (>60 ml/min/1.73 sqM) Glucose 88 (74-99) mg/dL Plasma Lactic Acid Cornel (0.7-2.0) mmol/L Calcium 7.9 L (8.4-10.2) mg/dL Total Bilirubin 0.6 (0.2-1.3) mg/dL AST 43 H (14-36) U/L ALT 41 H (4-34) U/L Alkaline Phosphatase 93 (38-126) U/L Troponin I (0.000-0.034) ng/mL NT-Pro-B Natriuret Pep 974 pg/mL Total Protein 5.7 L (6.3-8.2) g/dL Albumin 3.2 L (3.5-5.0) g/dL 10/19/24 10/19/24 Range/Units 14:50 14:50 WBC (4.50-10.00) 10*3/uL RBC (4.10-5.20) 10*6/uL Hgb (12.0-15.0) g/dL Hct (37.2-46.3) % MCV (80.0-97.0) fL MCH (27.0-32.0) pg MCHC (32.0-37.0) g/dL Plt Count (140-440) 10*3/uL MPV (9.5-12.2) fL Immature Gran % (Auto) % Neutrophils % % Lymphocytes % % Monocytes % % Eosinophils % % Basophils % % Immature Gran # (0.00-0.04) 10*3/uL Neutrophils # (1.80-7.70) 10*3/uL Lymphocytes # (0.90-5.00) 10*3/uL Monocytes # (0.20-1.00) 10*3/uL Eosinophils # (0.04-0.35) 10*3/uL Basophils # (0.00-0.10) 10*3/uL PT (10.0-12.5) sec INR (<1.2) APTT (22.0-30.0) sec Sodium (137-145) mmol/L Potassium (3.5-5.1) mmol/L Chloride (98-107) mmol/L Carbon Dioxide (22-30) mmol/L Anion Gap mmol/L BUN (7-17) mg/dL Creatinine (0.52-1.04) mg/dL Est GFR (CKD-EPI)AfAm (>60 ml/min/1.73 sqM) Est GFR (CKD-EPI)NonAf (>60 ml/min/1.73 sqM) Glucose (74-99) mg/dL Plasma Lactic Acid Cornel 1.3 (0.7-2.0) mmol/L Calcium (8.4-10.2) mg/dL Total Bilirubin (0.2-1.3) mg/dL AST (14-36) U/L ALT (4-34) U/L Alkaline Phosphatase (38-126) U/L Troponin I <0.012 (0.000-0.034) ng/mL NT-Pro-B Natriuret Pep pg/mL Total Protein (6.3-8.2) g/dL Albumin (3.5-5.0) g/dL Disposition Clinical Impression: Congestive heart failure, Palpitation Disposition: HOME SELF-CARE Condition: Fair Instructions (If sedation given, give patient instructions): Heart Palpitations (ED) Is patient prescribed a controlled substance at d/c from ED?: No Referrals: Tariq Ridley DO [Primary Care Provider] - 1-2 days Time of Disposition: 15:37
[2024-10-19 15:09] LABS: Basophils # (A) 0.07 10*3/uL (0.00-0.10); Basophils % (A) 0.4 %; Eosinophils # (A) 0.09 10*3/uL (0.04-0.35); Eosinophils % (A) 0.5 %; HCT 28.9 % (37.2-46.3); HGB 9.1 g/dL (12.0-15.0); Lymphocytes # (A) 0.83 10*3/uL (0.90-5.00); Lymphocytes % (A) 4.6 %; MCH 27.1 pg (27.0-32.0); MCHC 31.5 g/dL (32.0-37.0); MCV 86.0 fL (80.0-97.0); Monocytes # (A) 1.30 10*3/uL (0.20-1.00); Monocytes % (A) 7.1 %; Neutrophils # (A) 15.64 10*3/uL (1.80-7.70); Neutrophils % (A) 85.8 %; Platelet Count 492 10*3/uL (140-440); RBC 3.36 10*6/uL (4.10-5.20); RDW 15.3 % (11.5-14.5); WBC 18.22 10*3/uL (4.50-10.00)
[2024-10-19 15:21] LABS: INR 1.0 (<1.2); Partial Thromboplastin Time 23.5 sec (22.0-30.0); Prothrombin Time 11.4 sec (10.0-12.5)
--- NOTE | 2024-10-19 15:24 | XR ---
EXAMINATION TYPE: XR chest 2V DATE OF EXAM: 10/19/2024 3:13 PM COMPARISON: Multiple radiographs, with the most recent on 10/10/2024 TECHNIQUE: XR chest 2V Frontal and lateral views of the chest. CLINICAL INDICATION:Female, 83 years old with history of difficulty breathing; FINDINGS: Lungs/Pleura: No pneumothorax. Trace right pleural effusion. Similar moderate size left pleural effus ion with associated atelectasis. Pulmonary vascularity: Unremarkable. Heart/mediastinum: Cardiomediastinal silhouette is enlarged and stable. Atherosclerotic calcificatio ns are seen in the aorta. Musculoskeletal: No acute osseous pathology. Other findings: Cholecystectomy clips in the right upper quadrant. Surgical anchor within the left hu meral head. IMPRESSION: Similar moderate left pleural effusion with trace right pleural effusion. [facility], , 10/19/2024 3:22 PM
[2024-10-19 15:25] LABS: ALT 41 U/L (4-34); AST 43 U/L (14-36); African American GFR (CKD) >90 (>60 ml/min/1.73 sqM); Albumin 3.2 g/dL (3.5-5.0); Alkaline Phosphatase 93 U/L (38-126); Anion Gap 13 mmol/L; Blood Urea Nitrogen 21 mg/dL (7-17); Calcium 7.9 mg/dL (8.4-10.2); Carbon Dioxide 25 mmol/L (22-30); Chloride 95 mmol/L (98-107); Glucose 88 mg/dL (74-99); Non-African American GFR(CKD) 87 (>60 ml/min/1.73 sqM); Potassium 4.4 mmol/L (3.5-5.1); Sodium 133 mmol/L (137-145); Total Protein 5.7 g/dL (6.3-8.2)
[2024-10-19 15:33] LABS: NT-Pro-B-Type Natriuretic Pept 974 pg/mL
[2024-10-19 16:18] VITALS: BP 123/63; PULSE 68; RESP 19; TEMP 97.8
== END 2024-10-19 16:00 | disposition home or self-care (01) ==
LOC: EC 13:54
DX: I50.9 Heart failure, unspecified (principal); Z88.5 Allergy status to narcotic agent; Z88.1 Allergy status to other antibiotic agents
CPT/HCPCS: 36415; 71046; 80053; 83605; 83880; 84484; 85025; 85610; 85730; 93005; 99285

== ENCOUNTER → 2024-10-26 | Outpatient (CLI) | payer MEDICARE ==
[2024-10-26 15:34] LABS: Basophils # (A) 0.05 X 10*3/uL (0.00-0.10); Basophils % (A) 0.4 %; Eosinophils # (A) 0.06 X 10*3/uL (0.04-0.35); Eosinophils % (A) 0.4 %; HCT 30.1 % (37.2-46.3); HGB 8.9 g/dL (12.0-15.0); Immature Grans, Automated 1.00 %; Lymphocytes # (A) 0.64 X 10*3/uL (0.90-5.00); Lymphocytes % (A) 4.5 %; MCH 26.5 pg (27.0-32.0); MCHC 29.6 g/dL (32.0-37.0); MCV 89.6 FL (80.0-97.0); Monocytes # (A) 0.67 X 10*3/uL (0.20-1.00); Monocytes % (A) 4.7 %; NRBC Per 100 WBC 0 X 10*3/uL (0.00-0.01); Neutrophils # (A) 12.72 X 10*3/uL (1.80-7.70); Neutrophils % (A) 89.0 %; Platelet Count 478 X 10*3/uL (140-440); RBC 3.36 X 10*6/uL (4.10-5.20); RDW 15.9 % (11.5-14.5); WBC 14.28 X 10*3/uL (4.50-10.00)
[2024-10-26 15:48] LABS: ALT 35 U/L (8-44); AST 35 U/L (13-35); Albumin 3.4 g/dL (3.8-4.9); Albumin/Globulin Ratio 1.48 Ratio (1.60-3.17); Alkaline Phosphatase 88 U/L (41-126); Anion Gap 13.20 mmol/L (4.00-12.00); BUN/Creat Ratio 22.80 Ratio (12.00-20.00); Blood Urea Nitrogen 11.4 mg/dL (9.0-27.0); Calcium 8.0 mg/dL (8.7-10.3); Carbon Dioxide 28.8 mmol/L (21.6-31.8); Chloride 96 mmol/L (96-109); Cholesterol 127.00 mg/dL (0.00-200.00); Ferritin 210.0 ng/mL (10.0-291.0); Globulin 2.3 g/dL (1.6-3.3); Glucose 79 mg/dL (70-110); HDL Cholesterol 52.70 mg/dL (40.00-60.00); Iron 24 UG/DL (50-170); LDL Cholesterol,Calculated 58.7 mg/dL (0.0-131.0); Magnesium 1.8 mg/dL (1.5-2.4); Potassium 4.1 mmol/L (3.5-5.5); Sodium 138 mmol/L (135-145); T4, Free (Free Thyroxine) 1.64 ng/dL (0.80-1.80); Total Iron Binding Capacity 258 UG/DL (228-460); Total Protein 5.7 g/dL (6.2-8.2); Triglycerides 78.10 mg/dL (0.00-149.00); VLDL Calculation 15.62 mg/dL (5.00-40.00); Vitamin B12 795.0 pg/mL (200.0-944.0)
== END | disposition home or self-care (01) ==
LOC: LABWHC1 10:00
PROVIDERS: ATTEND Internal Medicine
DX: I51.89 Other ill-defined heart diseases (principal); E03.9 Hypothyroidism, unspecified; D50.9 Iron deficiency anemia, unspecified
CPT/HCPCS: 36415; 80053; 80061; 82607; 82728; 82746; 83540; 83550; 83735; 84439; 84443; 85025